=== PATIENT | female | born 1960 | race Hispanic/Latino ===

== ENCOUNTER 2016-06-26 16:07 | Inpatient (IN) | payer MEDICAID ==
[2016-06-26 16:07] VITALS: BMI 32.4
[2016-06-26] MEDS ORDERED: Sodium Chloride 0.9% 1,000 ML IV STA (16:40)
--- NOTE | 2016-06-26 16:44 | ED PDOC ---
HPI: Back Time Seen by Provider: 06/26/16 16:21 Chief Complaint (Nursing): Shortness Of Breath History Per: Patient (states having onset of mid back pain since yesterday that is associated with fever, chills and generalized body aches. She also has noted cloudy urine starting 2 days ago. She has a h/o e. coli in her urine (she is colonized). She denies injuries, cough, chest pain, abdominal pain, diarrhea.) Past Medical History Reviewed: Historical Data, Nursing Documentation, Vital Signs Vital Signs: Last Vital Signs Temp 100.3 F H 06/26/16 16:15 Pulse 101 H 06/26/16 16:15 Resp 22 06/26/16 16:28 BP 128/80 06/26/16 16:15 Pulse Ox 100 06/26/16 16:28 - Medical History PMH: Anxiety, Arthritis, Back Problems, Depression, Fibromyalgia, GERD, HIV ( AIDS), HTN, Hypercholesterolemia, Hypothyroidism, Kidney Stones, Migraine, Chronic Kidney Disease, Rheumatoid Arthritis, Chronic Pain (cervical, lumbar) Denies: Asthma, COPD - Surgical History Surgical History: - Family History Family History: States: Unknown Family Hx, MS (Father had a heart attack >55yo) - Immunization History Hx Tetanus Toxoid Vaccination: Yes (current) Hx Influenza Vaccination: Yes (12/2013) Hx Pneumococcal Vaccination: No - Home Medications Home Medications: Ambulatory Orders Medication Instructions Recorded Allopurinol [Zyloprim] 100 mg PO DAILY 06/26/16 Amitriptyline [Elavil] 50 mg PO DAILY 06/26/16 Efavirenz [Sustiva] 600 mg PO DAILY 06/26/16 Gabapentin [Neurontin] 600 mg PO TID 06/26/16 Lamivudine [Epivir] 150 mg PO DAILY 06/26/16 Levothyroxine [Synthroid] 1 tab PO DAILY 06/26/16 Loratadine [Allergy] 1 tab PO DAILY 06/26/16 Omeprazole [Omeprazole] 1 tab PO DAILY 06/26/16 Raltegravir Potassium [Isentress] 400 mg PO DAILY 06/26/16 Topiramate [Topamax] 25 mg PO DAILY 06/26/16 Venlafaxine [Effexor-XR] 75 mg PO DAILY 06/26/16 - Allergies Allergies/Adverse Reactions: Allergies Allergy/AdvReac Type Severity Reaction Status Date / Time No Known Allergies Allergy Verified 06/26/16 16:14 Review of Systems ROS Statement: Except As Marked, All Systems Reviewed And Found Negative Constitutional: Positive for: Fever, Chills, Malaise Respiratory: Negative for: Cough, SOB with Exertion Gastrointestinal: Negative for: Nausea, Vomiting, Abdominal Pain, Diarrhea Genitourinary Female: Positive for: Dysuria. Negative for: Hematuria Physical Exam - Reviewed Nursing Documentation Reviewed: Yes Vital Signs Reviewed: Yes - Physical Exam Appears: Positive for: Well, Non-toxic, No Acute Distress Head Exam: Positive for: ATRAUMATIC, NORMAL INSPECTION, NORMOCEPHALIC Skin: Positive for: Normal Color, Warm, DRY Eye Exam: Positive for: EOMI, Normal appearance, PERRL ENT: Positive for: Normal ENT Inspection Neck: Positive for: Normal, Painless ROM Cardiovascular/Chest: Positive for: Regular Rate, Rhythm Respiratory: Positive for: CNT, Normal Breath Sounds Gastrointestinal/Abdominal: Positive for: Normal Exam, Bowel Sounds, Soft Back: Positive for: Normal Inspection, L CVA Tenderness, R CVA Tenderness, Vertebral Tenderness Extremity: Positive for: Normal ROM Neurologic/Psych: Positive for: Alert, Oriented - Laboratory Results Result Diagrams: 06/26/16 17:10 06/26/16 17:10 - ECG O2 Sat by Pulse Oximetry: 100 Disposition - Clinical Impression Clinical Impression: UTI (urinary tract infection), Pyelonephritis, acute - Patient ED Disposition Is Patient to be Admitted: Yes Doctor Will See Patient In The: Hospital - Disposition Disposition: Transfer of Care Disposition Time: 20:35 Condition: FAIR - Pt Status Changed To: Hospital Disposition Of: Observation
[2016-06-26] MEDS ORDERED: cefTRIAXone (Rocephin) 1 gm Inj ONE (16:53)
[2016-06-26 17:24] LABS: VENOUS BLOOD GAS BASE EXCESS 7.8 mmol/L (0.0-2.0); VENOUS BLOOD GAS PCO2 37 mmHg (40-60); VENOUS BLOOD PH 7.53 (7.32-7.43)
[2016-06-26 17:50] LABS: BASO # 0.1 K/uL (0.0-0.2); BASO % 0.4 % (0.0-2.0); EOS # 0.1 K/uL (0.0-0.7); EOS % 0.4 % (0.0-4.0); HEMATOCRIT 39.4 % (34.0-47.0); LYMPH # 2.9 K/uL (1.0-4.3); LYMPH % 18.6 % (20.0-40.0); MEAN CELL VOLUME 94.8 fl (81.0-99.0); MEAN CORPUSCULAR HEMOGLOBIN 31.5 pg (27.0-31.0); MEAN CORPUSCULAR HGB CONC 33.2 g/dL (33.0-37.0); MEAN PLATELET VOLUME 8.2 fl (7.2-11.7); MONO # 1.4 K/uL (0.0-0.8); MONO % 8.7 % (0.0-10.0); NEUT # 11.1 K/uL (1.8-7.0); NEUT % 71.9 % (50.0-75.0); RED CELL DISTRIBUTION WIDTH 14.5 % (11.5-14.5); WHITE BLOOD COUNT 15.5 K/uL (4.8-10.8)
[2016-06-26 17:58] LABS: POTASSIUM 2.8 MMOL/L (3.6-5.0)
[2016-06-26 18:00] LABS: BILIRUBIN,TOTAL 0.8 mg/dl (0.2-1.3); TOTAL PROTEIN 9.2 G/DL (6.3-8.2)
[2016-06-26 18:01] LABS: CALCIUM 10.1 mg/dL (8.4-10.2)
--- NOTE | 2016-06-26 18:01 | RAD ---
PROCEDURE: CHEST RADIOGRAPH, 1 VIEW. Technique: Single view portable semi erect @ 17:30 HISTORY: back pain COMPARISON: 05/11/2015. FINDINGS: LUNGS: Clear. PLEURA: No pneumothorax or pleural fluid seen. CARDIOVASCULAR: Normal. OSSEOUS STRUCTURES: No significant abnormalities. VISUALIZED UPPER ABDOMEN: Normal. OTHER FINDINGS: None. IMPRESSION: No active disease. No acute/significant interval changes.
[2016-06-26 18:29] LABS: URINE BILIRUBIN NEGATIVE (NEGATIVE); URINE BLOOD NEGATIVE (NEGATIVE); URINE COLOR YELLOW (YELLOW); URINE GLUCOSE (UA) NEGATIVE (Normal); URINE KETONE NEGATIVE (NEGATIVE); URINE PROTEIN 30 mg/dL (NEGATIVE); URINE UROBILINOGEN 0.2 mg/dL (0.2-1.0)
[2016-06-26 18:30] LABS: RBC URINE 2 /hpf (0-3); URINE BACTERIA RARE (<OCC); URINE LEUKOCYTE ESTERASE MOD Leu/uL (Negative); WBC URINE 24 /hpf (0-5)
--- NOTE | 2016-06-26 21:41 | CP.PCM.HP ---
History of Present Illness - History of Present Illness History of Present Illness: 56 yo F w PMHx of HIV, Nephrolithiasis, CKD, and depression is admitted to hospital for lower back pain, difficulty urinating, and cloudy urine for 2 days. Pt states she has been more easily tired upon regular activities, such as food shopping. However, she does deny fevers/chills, dizziness, dysuria, hematuria, and any recent known stone passage. In addition to kidney stones, pt does have previous episodic history of UTI/Pyelonephritis w MDR E. Coli most recently in September. Otherwise, pt denies n/v/d/c, headaches, cp, sob, dyspnea , cough, abd pain, or other myalgias. 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 Allergies: NKDA Home Meds: Lorazepam, Isentress 400, Epivir 150, Sustiva 600, Amitriptyline 50 HS, Lasix 20, Strovite, Allopurinol, Omeprazole, Urocit-K15, Levoxyl 50, Claritin, Effexor XR 75, Zofran 4 BID PRN FHx: Father at 59yrs of unknown cardiac dz, mother alive w bladder CA SHx: denies etoh, cigarettes, illicit drugs ED Course: -CBC -CMP -D-Dimer -VBG -BCx -UA -UCx -CXR -EKG -Flu A/B -NS 1L Bolus STAT x1 -Famotidine 20mg IVP STAT x1 -Ceftriaxone 1gm IVPB ONCE x1 -Toradol 30mg IV STAT x1 -Zofran 4mg IVP STAT x1 Present on Admission - Present on Admission Any Indicators Present on Admission: No History of DVT/PE: No History of Uncontrolled Diabetes: No Urinary Catheter: No Decubitus Ulcer Present: No Review of Systems - Review of Systems Review of Systems: see HPI Past Patient History - Infectious Disease Hx of Infectious Diseases: None - Past Medical History & Family History Past Medical History?: Yes - Past Social History Smoking Status: Never Smoked - CARDIAC Hx Hypercholesterolemia: Yes Hx Hypertension: Yes - PULMONARY Hx Asthma: No Hx Chronic Obstructive Pulmonary Disease (COPD): No - NEUROLOGICAL Hx Migraine: Yes - HEENT Hx HEENT Problems: Yes Other/Comment: Use eyeglasses - RENAL Hx Chronic Kidney Disease: Yes Hx Kidney Stones: Yes - ENDOCRINE/METABOLIC Hx Hypothyroidism: Yes - HEMATOLOGICAL/ONCOLOGICAL Hx Human Immunodeficiency Virus (HIV): Yes (AIDS) - INTEGUMENTARY Hx Dermatological Problems: No - MUSCULOSKELETAL/RHEUMATOLOGICAL Hx Arthritis: Yes Hx Rheumatoid Arthritis: Yes - GASTROINTESTINAL Hx Gastrointestinal Disorders: Yes Hx Gastroesophageal Reflux: Yes - GENITOURINARY/GYNECOLOGICAL Hx Genitourinary Disorders: Yes Hx Hematuria: Yes Hx Urinary Tract Infection: Yes Other/Comment: STONES - PSYCHIATRIC Hx Anxiety: Yes Hx Depression: Yes - SURGICAL HISTORY Hx Surgeries: Yes Hx Section: Yes (x2) Hx Musculoskeletal Surgery: Yes (left foot, hump to back of neck removed x2) Hx Tubal Ligation: Yes Other/Comment: SURGICAL REMOVAL FOR KIDNEY STONE, LYMPH NODE SURGERY, , TUBAL LIGATION. - ANESTHESIA Hx Anesthesia: Yes Hx Anesthesia Reactions: No Hx Malignant Hyperthermia: No Meds Allergies/Adverse Reactions: Allergies Allergy/AdvReac Type Severity Reaction Status Date / Time No Known Allergies Allergy Verified 06/26/16 16:14 Physical Exam - Constitutional Appears: Non-toxic, No Acute Distress - Head Exam Head Exam: ATRAUMATIC, NORMAL INSPECTION - Eye Exam Eye Exam: EOMI Pupil Exam: PERRL - ENT Exam ENT Exam: Mucous Membranes Dry - Neck Exam Neck exam: Positive for: Full Rom. Negative for: Tenderness - Respiratory Exam Respiratory Exam: Clear to Auscultation Bilateral, NORMAL BREATHING PATTERN - Cardiovascular Exam Cardiovascular Exam: REGULAR RHYTHM - GI/Abdominal Exam GI & Abdominal Exam: Soft. absent: Tenderness - Extremities Exam Extremities exam: Negative for: calf tenderness - Back Exam Back exam: CVA tenderness (L) (mild), CVA tenderness (R) (very tender) - Neurological Exam Neurological exam: Alert, Oriented x3 - Skin Skin Exam: Dry, Normal Color, Warm Results - Vital Signs Recent Vital Signs: Last Vital Signs Temp 99.2 F 06/26/16 21:32 Pulse 76 06/26/16 21:32 Resp 18 06/26/16 21:32 BP 105/60 06/26/16 21:32 Pulse Ox 99 06/26/16 21:32 - Labs Result Diagrams: 06/26/16 17:10 06/26/16 17:10 Assessment & Plan - Assessment and Plan (Free Text) Plan: 56 yo F w PMHx of HIV, Nephrolithiasis, CKD, and depression is admitted to hospital for lower back pain, difficulty urinating, and cloudy urine for 2 days 1) Pyelonephritis VS UTI in setting of CKD -CKD currently stage 3; h/o HIV, frequent kidney stones, and yearly episodes of UTIs/Pyelo w h/o MRD e coli -Nephro Consulted and Onboard, Spoken with Fri evening -Infectious Consulted and Onboard, Spoken with Fri evening -Creatinine Clearance ~63.50 ---CT A/P w/o contrast (September): Calcifications consistent w medullary nephrocalcinosis. Nonobstructing bilateral renal calculi. No hydronephrosis. ---Previous UCx (September): MDR e coli -NS 1L Bolus -NS 1L @ 84mL/hr -Ceftriaxone 1gm IVPB x1, awaiting input from ID -Tylenol 650mg PO Q6H PRN Fever, w orders to instruct MD when given -Zofran 4mg IVP PRN Nausea -Morphine 2mg IVP Q6H PRN Pain -f/u BCx -f/u UCx ---spoke w [facility] to ensure Sensitivity is performed, they stated it is automatic w colony count >50,000 and would need to be requested if count is < 50,000. Phone # is [phone] 2) CKD Stage 3 w Hypokalemia -GFR: 51 -BUN/Cr: 28/1.3 -K 2.8 -Lasix 20mg PO Daily; will confirm w Nephro regarding Lasix VS HCTZ bc GFR > 30 -Allopurinol 100mg PO Daily -KCl 10mEq x4 -f/u BMP in AM 3) HIV, not AIDS -VL (06/07): undetectable -CD4 (06/07): 774 -Isentress 400 -Epivir 150 -Sustiva 600 4) Hypothyroidism -TSH (08/06): 0.96 -Levoxyl 50mcg PO Daily -f/u TSH, FT3, FT4 5) Neuropathy -Gabapentin 600mg PO TID 6) h/o Depression -Venlafaxine 75mg PO Daily 7) h/o HTN -Presently Controlled 8) DVT Prophylaxis -SCDs, ambulates well -Will consider further anticoagulation
[2016-06-26] MEDS: Sodium Chloride 0.9% 1,000 ML IV SCH (22:07)
[2016-06-27] MEDS: Potassium CL 10 MEQ/50 ML 50 ML IVPB SCH ×4 (00:46→06:27)
[2016-06-27] MEDS: Levothyroxine 50 MCG TAB PO SCH (07:29)
[2016-06-27 07:41] LABS: MEAN CELL VOLUME 93.8 fl (81.0-99.0); MEAN CORPUSCULAR HEMOGLOBIN 31.9 pg (27.0-31.0); MEAN CORPUSCULAR HGB CONC 34.1 g/dL (33.0-37.0); WHITE BLOOD COUNT 9.8 K/uL (4.8-10.8)
[2016-06-27 07:51] LABS: CALCIUM 9.3 mg/dL (8.4-10.2); POTASSIUM 3.2 MMOL/L (3.6-5.0)
[2016-06-27 08:21] LABS: THYROID STIMULATING HORMONE 0.69 mIU/ML (0.46-4.68)
[2016-06-27] MEDS ORDERED: OMEPRAZOLE PO SCH (09:00)
[2016-06-27] MEDS: Pantoprazole 40 mg EC Tab PO SCH (09:10)
[2016-06-27] MEDS: Venlafaxine 75 mg ER Cap PO SCH (09:11)
--- NOTE | 2016-06-27 10:27 | CP.PCM.CON ---
History of Present Illness - History of Present Illness History of Present Illness: This patient who is 56 years old. I was asked to see her for renal consultation because of abnormal kidney function. Patient was admitted was urine complaining dysuria and difficulty in urination low grade fever with sign urine tract infection. She has long history of recurrent urinary tract infection and recurrent kidney stone. Patient had the previously more than once nephrolithiasis and also stone laser Treatment PMHx: HIV (May VL: undetectable, CD4: 774), Migraine, Nephrolithiasis, CKD , Pyelo w MRD e coli (September), R lung nodule, Diverticulosis, Fatty Liver change, Hypothyroidism PSHx: C/S x2, R kidney stent 2014, L heel spur 2013, neck lipoma 2009 Review of Systems - Constitutional Constitutional: As Per HPI - EENT Eyes: As Per HPI Nose/Mouth/Throat: As Per HPI - Cardiovascular Cardiovascular: absent: Chest Pain, Dyspnea, Leg Edema - Respiratory Respiratory: absent: Cough, Hemoptysis - Gastrointestinal Gastrointestinal: As Per HPI. absent: Abdominal Pain - Genitourinary Genitourinary: As Per HPI, Dysuria, Freq UTI, Hx Renal/Bladder Calculi - Neurological Neurological: As Per HPI Past Patient History - Infectious Disease Hx of Infectious Diseases: None - Past Medical History & Family History Past Medical History?: Yes - Past Social History Smoking Status: Never Smoked - CARDIAC Hx Hypercholesterolemia: Yes Hx Hypertension: Yes - PULMONARY Hx Asthma: No Hx Chronic Obstructive Pulmonary Disease (COPD): No - NEUROLOGICAL Hx Migraine: Yes - HEENT Hx HEENT Problems: Yes Other/Comment: Use eyeglasses - RENAL Hx Chronic Kidney Disease: Yes Hx Kidney Stones: Yes - ENDOCRINE/METABOLIC Hx Hypothyroidism: Yes - HEMATOLOGICAL/ONCOLOGICAL Hx Human Immunodeficiency Virus (HIV): Yes (AIDS) - INTEGUMENTARY Hx Dermatological Problems: No - MUSCULOSKELETAL/RHEUMATOLOGICAL Hx Arthritis: Yes Hx Rheumatoid Arthritis: Yes - GASTROINTESTINAL Hx Gastrointestinal Disorders: Yes Hx Gastroesophageal Reflux: Yes - GENITOURINARY/GYNECOLOGICAL Hx Genitourinary Disorders: Yes Hx Hematuria: Yes Hx Urinary Tract Infection: Yes Other/Comment: STONES - PSYCHIATRIC Hx Anxiety: Yes Hx Depression: Yes - SURGICAL HISTORY Hx Surgeries: Yes Hx Section: Yes (x2) Hx Musculoskeletal Surgery: Yes (left foot, hump to back of neck removed x2) Hx Tubal Ligation: Yes Other/Comment: SURGICAL REMOVAL FOR KIDNEY STONE, LYMPH NODE SURGERY, , TUBAL LIGATION. - ANESTHESIA Hx Anesthesia: Yes Hx Anesthesia Reactions: No Hx Malignant Hyperthermia: No Meds Allergies/Adverse Reactions: Allergies Allergy/AdvReac Type Severity Reaction Status Date / Time No Known Allergies Allergy Verified 06/26/16 16:14 - Medications Medications: Current Medications Acetaminophen (Tylenol 325mg Tab) 650 mg PO Q6 PRN PRN Reason: Fever >100.4 F Last Admin: 06/27/16 09:09 Dose: 650 mg Allopurinol (Zyloprim) 100 mg PO DAILY [facility] Last Admin: 06/27/16 09:10 Dose: 100 mg Amitriptyline HCl (Elavil) 50 mg PO DAILY [facility] Last Admin: 06/27/16 09:10 Dose: 50 mg Efavirenz (Sustiva) 600 mg PO DAILY [facility] Last Admin: 06/27/16 09:10 Dose: 600 mg Furosemide (Lasix) 20 mg PO DAILY [facility] Last Admin: 06/27/16 09:17 Dose: Not Given Gabapentin (Neurontin) 600 mg PO TID [facility] Last Admin: 06/27/16 09:10 Dose: 600 mg Sodium Chloride (Sodium Chloride 0.9%) 1,000 mls @ 84 mls/hr IV .[id number] [facility] Last Admin: 06/26/16 22:07 Dose: 84 mls/hr Lamivudine (Epivir) 150 mg PO DAILY [facility] Last Admin: 06/27/16 09:10 Dose: 150 mg Levothyroxine Sodium (Synthroid) 50 mcg PO DAILY@0630 [facility] Last Admin: 06/27/16 07:29 Dose: 50 mcg Loratadine (Claritin) 10 mg PO DAILY [facility] Last Admin: 06/27/16 09:10 Dose: 10 mg Morphine Sulfate (Morphine) 2 mg IVP Q6 PRN PRN Reason: Pain, Mild (1-3) Ondansetron HCl (Zofran Inj) 4 mg IVP Q6 PRN PRN Reason: Nausea/Vomiting Pantoprazole Sodium (Protonix Ec Tab) 40 mg PO DAILY [facility] Last Admin: 06/27/16 09:10 Dose: 40 mg Raltegravir (Isentress) 400 mg PO DAILY [facility] Last Admin: 06/27/16 09:10 Dose: 400 mg Venlafaxine HCl (Effexor Xr) 75 mg PO DAILY [facility] Last Admin: 06/27/16 09:11 Dose: 75 mg Physical Exam - Constitutional Appears: Non-toxic, No Acute Distress - ENT Exam ENT Exam: Mucous Membranes Moist - Respiratory Exam Respiratory Exam: absent: Chest Wall Tenderness - Cardiovascular Exam Cardiovascular Exam: REGULAR RHYTHM. absent: JVD, Rubs - GI/Abdominal Exam GI & Abdominal Exam: Normal Bowel Sounds, Soft - Extremities Exam Extremities exam: Negative for: calf tenderness - Back Exam Back exam: absent: CVA tenderness (L), CVA tenderness (R) - Neurological Exam Neurological exam: Alert Results - Vital Signs Recent Vital Signs: Last Vital Signs Temp 98.4 F 06/27/16 08:03 Pulse 81 06/27/16 08:03 Resp 20 06/27/16 08:03 BP 126/79 06/27/16 08:03 Pulse Ox 99 06/27/16 08:03 - Labs Result Diagrams: 06/27/16 05:55 06/27/16 05:55 Labs: Laboratory Results - last 24 hr 06/27/16 05:55 WBC 9.8 RBC 3.52 L Hgb 11.3 L Hct 33.0 L MCV 93.8 MCH 31.9 H MCHC 34.1 RDW 14.0 Plt Count 228 Sodium 142 Potassium 3.2 L Chloride 101 Carbon Dioxide 27 Anion Gap 17 BUN 28 H Creatinine 1.5 H Est GFR ( Amer) 43 Est GFR (Non-Af Amer) 36 Random Glucose 116 H Calcium 9.3 Free T4 1.04 TSH 3rd Generation 0.69 Assessment & Plan (1) Pyelonephritis, acute Status: Acute (2) UTI (urinary tract infection) Assessment and Plan: Patient admitted with symptom of follow-up appeared to be pyelonephritis/ urinary tract infection. Patient has history of CK D stage III with appeared to be has been stable most likely whether to do anything with the HIV I'm not sure? Patient just went for CT scan of the abdomen this morning the report is still pending Patient has history of multiple nephrolithiasis Patient need follow-up to do a metabolic workup for the kidney stone when she is over from the urine tract infection. Possible acute kidney injury superimposed on CK D stage III. Status: Acute
[2016-06-27] MEDS: Sodium Chloride 0.9% 1,000 ML IV SCH ×2 (10:42→21:20)
--- NOTE | 2016-06-27 10:51 | CT ---
PROCEDURE: CT Abdomen and Pelvis without intravenous contrast HISTORY: CVA tenderness, r/o obstruction VS stones COMPARISON: None. TECHNIQUE: Without contrast.. Contrast Dose: 0 Radiation dose: Total exam DLP = 1028.21 mGy-cm. This CT exam was performed using one or more of the following dose reduction techniques: Automated exposure control, adjustment of the mA and/or kV according to patient size, and/or use of iterative reconstruction technique. FINDINGS: LOWER THORAX: Small nodules in both lower lobes and right middle lobe. Largest 4 mm. No change compared to examinations dating back to 11/06/2013. . No consolidation/pleural effusion. LIVER: Normal size and contour. Mildly diminished attenuation, diffusely, consistent with fatty infiltration. No mass. No biliary dilatation. Smooth contour. GALLBLADDER AND BILE DUCTS: Unremarkable. PANCREAS: Extensive fatty atrophy. No mass. No pancreatic ductal dilatation appreciated SPLEEN: Unremarkable. ADRENALS: Unremarkable. No mass. KIDNEYS AND URETERS: Bilateral medullary calcifications consistent with medullary nephrocalcinosis. No definite calculi within collecting system. No hydronephrosis. No renal mass. VASCULATURE: Unremarkable. No aortic aneurysm. BOWEL: Diverticulosis of transverse colon. Scattered diverticulae elsewhere throughout colon. No evidence of diverticulitis. No bowel obstruction. No other abnormal bowel loops. APPENDIX: Not identified. No secondary findings to suggest appendicitis. PERITONEUM: Unremarkable. No free fluid. No free air. LYMPH NODES: No retroperitoneal or pelvic lymphadenopathy. BLADDER: Decompressed. REPRODUCTIVE: Anteverted postmenopausal uterus. BONES: No acute fracture. OTHER FINDINGS: None. IMPRESSION: Bilateral medullary nephrocalcinosis. No definite calculi within the urinary collecting system. No evidence of urinary tract obstruction. No ureteral calculus. Multiple small stable nodules at the lung bases. Diverticulosis of the transverse colon. No evidence of diverticulitis. Otherwise unremarkable.
[2016-06-27] MEDS ORDERED: Potassium Chloride 20 mEq ER Tab PO ONE (11:00)
[2016-06-27] MEDS ORDERED: Potassium Chloride 20 mEq ER Tab PO SCH (11:00)
--- NOTE | 2016-06-27 11:42 | CP.PCM.PN ---
Subjective - Date & Time of Evaluation Date of Evaluation: 06/27/16 Time of Evaluation: 11:10 - Subjective Subjective: The patient is a 56 y/o woman w/ PMHx of HIV, Nephrolithiasis, CKD, and depression is admitted to hospital for lower back pain, difficulty urinating, and cloudy urine for 2 days prior to admission. The patient was seen this morning. There are no acute events overnight. The patient is not in acute distress. The patient complains of some burning with the IV potassium. Patient is ambulatory and currently denies back pain or CVA tenderness. The patient has no other complaints, denies headaches, dizziness, chest pain, dyspnea, abdominal pain, nausea, vomiting, and fevers. Objective - Vital Signs/Intake and Output Vital Signs (last 24 hours): Temp Pulse Resp BP Pulse Ox 98.4 F 81 20 126/79 99 06/27/16 08:03 06/27/16 08:03 06/27/16 08:03 06/27/16 08:03 06/27/16 08:03 - Medications Medications: Current Medications Acetaminophen (Tylenol 325mg Tab) 650 mg PO Q6 PRN PRN Reason: Fever >100.4 F Last Admin: 06/27/16 09:09 Dose: 650 mg Allopurinol (Zyloprim) 100 mg PO DAILY [facility] Last Admin: 06/27/16 09:10 Dose: 100 mg Amitriptyline HCl (Elavil) 50 mg PO DAILY [facility] Last Admin: 06/27/16 09:10 Dose: 50 mg Efavirenz (Sustiva) 600 mg PO DAILY [facility] Last Admin: 06/27/16 09:10 Dose: 600 mg Furosemide (Lasix) 20 mg PO DAILY [facility] Last Admin: 06/27/16 09:17 Dose: Not Given Gabapentin (Neurontin) 600 mg PO TID [facility] Last Admin: 06/27/16 09:10 Dose: 600 mg Sodium Chloride (Sodium Chloride 0.9%) 1,000 mls @ 84 mls/hr IV .[id number] [facility] Last Admin: 06/27/16 10:42 Dose: Not Given Lamivudine (Epivir) 150 mg PO DAILY [facility] Last Admin: 06/27/16 09:10 Dose: 150 mg Levothyroxine Sodium (Synthroid) 50 mcg PO DAILY@0630 [facility] Last Admin: 06/27/16 07:29 Dose: 50 mcg Loratadine (Claritin) 10 mg PO DAILY [facility] Last Admin: 06/27/16 09:10 Dose: 10 mg Morphine Sulfate (Morphine) 2 mg IVP Q6 PRN PRN Reason: Pain, Mild (1-3) Ondansetron HCl (Zofran Inj) 4 mg IVP Q6 PRN PRN Reason: Nausea/Vomiting Pantoprazole Sodium (Protonix Ec Tab) 40 mg PO DAILY [facility] Last Admin: 06/27/16 09:10 Dose: 40 mg Raltegravir (Isentress) 400 mg PO DAILY [facility] Last Admin: 06/27/16 09:10 Dose: 400 mg Venlafaxine HCl (Effexor Xr) 75 mg PO DAILY [facility] Last Admin: 06/27/16 09:11 Dose: 75 mg - Labs Labs: 06/27/16 05:55 06/27/16 05:55 - Constitutional Appears: No Acute Distress - Head Exam Head Exam: ATRAUMATIC, NORMOCEPHALIC - Neck Exam Neck Exam: Full ROM - Respiratory Exam Respiratory Exam: Clear to Ausculation Bilateral, NORMAL BREATHING PATTERN. absent: Accessory Muscle Use, Chest Wall Tenderness, Decreased Breath Sounds, Prolonged Expiratory Phase, Rales, Rhonchi, Wheezes, Respiratory Distress, Stridor - Cardiovascular Exam Cardiovascular Exam: REGULAR RHYTHM, RRR. absent: Tachycardia - GI/Abdominal Exam GI & Abdominal Exam: Soft, Normal Bowel Sounds. absent: Distended, Tenderness - Extremities Exam Extremities Exam: Full ROM, Normal Inspection. absent: Calf Tenderness, Tenderness - Back Exam Back Exam: Full ROM, NORMAL INSPECTION. absent: CVA tenderness (L), CVA tenderness (R), tenderness - Neurological Exam Neurological Exam: Alert, Awake, Normal Gait, Oriented x3 - Skin Skin Exam: Dry, Intact, Normal Color, Warm Assessment and Plan - Assessment and Plan (Free Text) Assessment: The patient is a 56 y/o woman w/ PMHx of HIV, Nephrolithiasis, CKD, and depression is admitted to hospital for lower back pain, difficulty urinating, and cloudy urine for 2 days prior to admission Plan: 1) Pyelonephritis VS UTI in setting of CKD -CKD currently stage 3; h/o HIV, frequent kidney stones, and yearly episodes of UTIs/Pyelo w h/o MRD e coli -Nephro Consulted, Dr. Watters, recommendations appreciated -Infectious Consulted, Dr. Molina; recommendations appreciated -Urology Consulted, Dr. Wick -Creatinine Clearance ~63.50 ---CT A/P w/o contrast (September): Calcifications consistent w medullary nephrocalcinosis. Nonobstructing bilateral renal calculi. No hydronephrosis. ---Previous UCx (September): MDR e coli -NS 1L Bolus -NS 1L @ 84mL/hr -Ceftriaxone 1gm IVPB x2 -Tylenol 650mg PO Q6H PRN Fever, w orders to instruct MD when given -Zofran 4mg IVP PRN Nausea -Morphine 2mg IVP Q6H PRN Pain -f/u BCx x2 -f/u UCx ---reachd out to [facility] to ensure Sensitivity is performed, they stated it is automatic w colony count >50,000 and would need to be requested if count is <50,000. Phone # is [phone] -Meropenem 500 mg IV Q8h -possible PICC line, pending culture and sensitivity 2) CKD Stage 3 w Hypokalemia -repeat GFR: 36 -repeat BUN/Cr: 28/1.5 -repeat K 3.2 -Lasix 20mg PO Daily; will confirm w Nephro regarding Lasix VS HCTZ bc GFR > 30 -Allopurinol 100mg PO Daily -s/p KCl 10mEq x4 -given Po potassium chloride 40 mg once -follow up BMP in PM 3) HIV, not AIDS -VL (06/07): undetectable -CD4 (06/07): 774 -Isentress 400 -Epivir 150 -Sustiva 600 4) Hypothyroidism -TSH (08/06): 0.96 -Levoxyl 50mcg PO Daily -TSH 0.69, FT4 1.04 5) Neuropathy -Gabapentin 600mg PO TID 6) h/o Depression -Venlafaxine 75mg PO Daily 7) h/o HTN -Presently Controlled 8) DVT Prophylaxis -SCDs, ambulates well -Will consider further anticoagulation
--- NOTE | 2016-06-27 13:00 | CP.PCM.CON ---
History of Present Illness - History of Present Illness History of Present Illness: Infectious Disease Consultation Note- asked to see this patient at the request of family practice team. HPI- Pt. is a 56 year old female with pmh of HIV ( well controlled on HAART), nephrolithiasis, and previous ESBL UTIS, CKD, who was admitted last night with c /o left flank pain and cloudy malodorous urine. Pt. states she has h/o uric acid nephrolithiasis and has had lithotropsy in past but she keeps getting them at least twice a year and each time it comes along with UTI as well and always E.COli. Pt. states she does not get fever or chills or any dysurea but does get the lower back pain and cloudy urine. She states last time she was here she got picc line and was d/c home on IV abx. She also mentions she has MAcrobid at home and usually when she feels the symptoms starting she takes it and that helps her. She also mentions she f/u with and HAs a supercalender operator helper as outpatient as well. Pt. denies any n/v, denies any abd. pain. 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 pain, denies any dysurea, does c/o left lower back pain, + cloudy malodorous urine as per pt., denies any diarrhea Past Patient History - Infectious Disease Hx of Infectious Diseases: None - Past Medical History & Family History Past Medical History?: Yes - Past Social History Smoking Status: Never Smoked Alcohol: None Drugs: Denies Home Situation {Lives}: With Family - CARDIAC Hx Hypercholesterolemia: Yes Hx Hypertension: Yes - PULMONARY Hx Asthma: No Hx Chronic Obstructive Pulmonary Disease (COPD): No - NEUROLOGICAL Hx Migraine: Yes - HEENT Hx HEENT Problems: Yes Other/Comment: Use eyeglasses - RENAL Hx Kidney Stones: Yes - ENDOCRINE/METABOLIC Hx Hypothyroidism: Yes - HEMATOLOGICAL/ONCOLOGICAL Hx Human Immunodeficiency Virus (HIV): Yes - INTEGUMENTARY Hx Dermatological Problems: No - MUSCULOSKELETAL/RHEUMATOLOGICAL Hx Arthritis: Yes Hx Rheumatoid Arthritis: Yes - GASTROINTESTINAL Hx Gastrointestinal Disorders: Yes Hx Gastroesophageal Reflux: Yes - GENITOURINARY/GYNECOLOGICAL Hx Genitourinary Disorders: Yes Hx Hematuria: Yes Hx Urinary Tract Infection: Yes Other/Comment: STONES - PSYCHIATRIC Hx Anxiety: Yes Hx Depression: Yes - SURGICAL HISTORY Hx Surgeries: Yes Hx Section: Yes (x2) Hx Musculoskeletal Surgery: Yes (left foot, hump to back of neck removed x2) Hx Tubal Ligation: Yes Other/Comment: SURGICAL REMOVAL FOR KIDNEY STONE, LYMPH NODE SURGERY, , TUBAL LIGATION. - ANESTHESIA Hx Anesthesia: Yes Hx Anesthesia Reactions: No Hx Malignant Hyperthermia: No Meds Allergies/Adverse Reactions: Allergies Allergy/AdvReac Type Severity Reaction Status Date / Time No Known Allergies Allergy Verified 06/26/16 16:14 - Medications Medications: Current Medications Acetaminophen (Tylenol 325mg Tab) 650 mg PO Q6 PRN PRN Reason: Fever >100.4 F Last Admin: 06/27/16 09:09 Dose: 650 mg Allopurinol (Zyloprim) 100 mg PO DAILY [facility] Last Admin: 06/27/16 09:10 Dose: 100 mg Amitriptyline HCl (Elavil) 50 mg PO DAILY [facility] Last Admin: 06/27/16 09:10 Dose: 50 mg Efavirenz (Sustiva) 600 mg PO DAILY [facility] Last Admin: 06/27/16 09:10 Dose: 600 mg Furosemide (Lasix) 20 mg PO DAILY [facility] Last Admin: 06/27/16 09:17 Dose: Not Given Gabapentin (Neurontin) 600 mg PO TID [facility] Last Admin: 06/27/16 09:10 Dose: 600 mg Sodium Chloride (Sodium Chloride 0.9%) 1,000 mls @ 84 mls/hr IV .[id number] [facility] Last Admin: 06/27/16 10:42 Dose: Not Given Lamivudine (Epivir) 150 mg PO DAILY [facility] Last Admin: 06/27/16 09:10 Dose: 150 mg Levothyroxine Sodium (Synthroid) 50 mcg PO DAILY@0630 [facility] Last Admin: 06/27/16 07:29 Dose: 50 mcg Loratadine (Claritin) 10 mg PO DAILY [facility] Last Admin: 06/27/16 09:10 Dose: 10 mg Morphine Sulfate (Morphine) 2 mg IVP Q6 PRN PRN Reason: Pain, Mild (1-3) Ondansetron HCl (Zofran Inj) 4 mg IVP Q6 PRN PRN Reason: Nausea/Vomiting Pantoprazole Sodium (Protonix Ec Tab) 40 mg PO DAILY [facility] Last Admin: 06/27/16 09:10 Dose: 40 mg Raltegravir (Isentress) 400 mg PO DAILY [facility] Last Admin: 06/27/16 09:10 Dose: 400 mg Venlafaxine HCl (Effexor Xr) 75 mg PO DAILY [facility] Last Admin: 06/27/16 09:11 Dose: 75 mg Physical Exam - Constitutional Appears: Non-toxic, No Acute Distress - Head Exam Head Exam: ATRAUMATIC - Eye Exam Eye Exam: EOMI, PERRL - ENT Exam ENT Exam: Normal Oropharynx - Neck Exam Neck exam: Positive for: Full Rom - Respiratory Exam Respiratory Exam: Clear to Auscultation Bilateral, NORMAL BREATHING PATTERN - Cardiovascular Exam Cardiovascular Exam: RRR, +S1, +S2 - GI/Abdominal Exam GI & Abdominal Exam: Normal Bowel Sounds, Soft Additional comments: NT, ND Left CVA tenderness present - Extremities Exam Extremities exam: Positive for: normal inspection Results - Vital Signs Recent Vital Signs: Last Vital Signs Temp 98.4 F 06/27/16 08:03 Pulse 81 06/27/16 08:03 Resp 20 06/27/16 08:03 BP 126/79 06/27/16 08:03 Pulse Ox 99 06/27/16 08:03 - Labs Result Diagrams: 06/27/16 05:55 06/27/16 05:55 Labs: Laboratory Results - last 24 hr 06/27/16 05:55 WBC 9.8 RBC 3.52 L Hgb 11.3 L Hct 33.0 L MCV 93.8 MCH 31.9 H MCHC 34.1 RDW 14.0 Plt Count 228 Sodium 142 Potassium 3.2 L Chloride 101 Carbon Dioxide 27 Anion Gap 17 BUN 28 H Creatinine 1.5 H Est GFR ( Amer) 43 Est GFR (Non-Af Amer) 36 Random Glucose 116 H Calcium 9.3 Free T4 1.04 TSH 3rd Generation 0.69 Laboratory Results - last 72 hr 06/26/16 06/26/16 06/27/16 17:10 17:20 05:55 WBC 15.5 H D 9.8 RBC 4.16 3.52 L Hgb 13.1 11.3 L Hct 39.4 33.0 L MCV 94.8 93.8 MCH 31.5 H 31.9 H MCHC 33.2 34.1 RDW 14.5 14.0 Plt Count 288 228 MPV 8.2 Neut % (Auto) 71.9 Lymph % (Auto) 18.6 L [place] % (Auto) 8.7 Eos % (Auto) 0.4 Baso % (Auto) 0.4 Neut # 11.1 H Lymph # 2.9 [place] # 1.4 H Eos # 0.1 Baso # 0.1 D-Dimer, Quantitative 0.34 pO2 18 L VBG pH 7.53 H VBG pCO2 37 L VBG HCO3 29.3 VBG Total CO2 32.0 H VBG O2 Sat (Calc) 37.8 L VBG Base Excess 7.8 H VBG Potassium 2.8 L Glucose 97 Lactate 1.6 FiO2 21.0 Sodium 137 134.0 142 Potassium 2.8 L 3.2 L Chloride 93 L 97.0 L 101 Carbon Dioxide 28 27 Anion Gap 19 17 BUN 28 H 28 H Creatinine 1.3 H 1.5 H Est GFR ( Amer) 51 43 Est GFR (Non-Af Amer) 42 36 Random Glucose 96 116 H Calcium 10.1 9.3 Total Bilirubin 0.8 AST 37 H ALT 28 Alkaline Phosphatase 127 H Total Protein 9.2 H Albumin 4.6 Globulin 4.6 H Albumin/Globulin Ratio 1.0 Free T4 1.04 TSH 3rd Generation 0.69 Venous Blood Potassium 2.8 L Urine Color Yellow Urine Clarity Slight-cloudy Urine pH 7.0 Ur Specific Hooper 1.015 Urine Protein 30 Urine Glucose (UA) Negative Urine Ketones Negative Urine Blood Negative Urine Nitrate Negative Urine Bilirubin Negative Urine Urobilinogen 0.2 Ur Leukocyte Esterase Mod Urine RBC (Auto) 2 Urine Microscopic WBC 24 H Ur Squamous Epith Cells 4 Amorphous Sediment Few H Urine Bacteria Rare Influenza Typ A,B (EIA) Negative for flu a/b Microbiology 06/26/16 17:10 Urine Urine Culture - Preliminary Gram Negative Mark Microbiology 10/28/15 09:28 Urine,Clean Catch Urine Culture - Final Gram Negative Mark 10/19/15 16:30 Urine,Clean Catch Urine Culture - Final Gram Negative Mark 10/03/15 14:27 Blood Blood Culture - Final 10/03/15 14:27 Blood Gram Stain - Final NO GROWTH AFTER 5 DAYS TEST NOT PERFORMED 10/03/15 14:27 Blood Blood Culture - Final 10/03/15 14:27 Blood Gram Stain - Final NO GROWTH AFTER 5 DAYS TEST NOT PERFORMED 10/03/15 14:01 Urine,Clean Catch Urine Culture - Final Escherichia Coli Accession No. : [id number] Patient Name / ID : CHAYA REYNOLDS [id number] Exam Date : 06/27/2016 08:21:22 ( Approved ) Study Comment : Sex / Age : F / 56Y Creator : Jake Pardo MD Dictator : Jake Pardo MD Soil Conservationist : Produce Inspector : Jake Pardo MD Approver2 : Report Date : 06/27/2016 10:45:24 My Comment : PROCEDURE: CT Abdomen and Pelvis without intravenous contrast HISTORY: CVA tenderness, r/o obstruction VS stones COMPARISON: None. TECHNIQUE: Without contrast.. Contrast Dose: 0 Radiation dose: Total exam DLP = 1028.21 mGy-cm. This CT exam was performed using one or more of the following dose reduction techniques: Automated exposure control, adjustment of the mA and/or kV according to patient size, and/or use of iterative reconstruction technique. FINDINGS: LOWER THORAX: Small nodules in both lower lobes and right middle lobe. Largest 4 mm. No change compared to examinations dating back to 11/06/2013. . No consolidation/ pleural effusion. LIVER: Normal size and contour. Mildly diminished attenuation, diffusely, consistent with fatty infiltration. No mass. No biliary dilatation. Smooth contour. GALLBLADDER AND BILE DUCTS: Unremarkable. PANCREAS: Extensive fatty atrophy. No mass. No pancreatic ductal dilatation appreciated SPLEEN: Unremarkable. ADRENALS: Unremarkable. No mass. KIDNEYS AND URETERS: Bilateral medullary calcifications consistent with medullary nephrocalcinosis. No definite calculi within collecting system. No hydronephrosis. No renal mass. VASCULATURE: Unremarkable. No aortic aneurysm. BOWEL: Diverticulosis of transverse colon. Scattered diverticulae elsewhere throughout colon. No evidence of diverticulitis. No bowel obstruction. No other abnormal bowel loops. APPENDIX: Not identified. No secondary findings to suggest appendicitis. PERITONEUM: Unremarkable. No free fluid. No free air. LYMPH NODES: No retroperitoneal or pelvic lymphadenopathy. BLADDER: Decompressed. REPRODUCTIVE: Anteverted postmenopausal uterus. BONES: No acute fracture. OTHER FINDINGS: None. IMPRESSION: Bilateral medullary nephrocalcinosis. No definite calculi within the urinary collecting system. No evidence of urinary tract obstruction. No ureteral calculus. Multiple small stable nodules at the lung bases. Diverticulosis of the transverse colon. No evidence of diverticulitis. Otherwise unremarkable. Assessment & Plan - Assessment and Plan (Free Text) Assessment: A/P- 56 y/o female with HIV on HAART, CKD, Nephrolithiasis with frequent E.Coli UTIs presented with left flank pain. not septic. afebrile Leukocytosis has improved since admission on abx. prelim urien cx- GNR abd/pelvic ct report noted as per report no urinary system obstruction. plan- await ID and sensitivity of the GNR in urine cx. check 2 blood cx. based on previous ESBL UTI's advise to start pt. on meropenem pending ID and sensitivity oft he current urine cx. keep well hydrated. continue current HAART meds as per her PMD. pt. also advised f/u with supercalender operator helper input and to speak with pipe fitter supervisor maintenance to help avoid foods that are high in purine . Thank you for allowing met o take part in the care of this patient. all above d/w patient and the FP team at length.
[2016-06-27] MEDS: Meropenem 500 MG in Sodium Chloride 0.9% 100 ML IVPB SCH (16:24)
[2016-06-27 17:20] LABS: CALCIUM 9.2 mg/dL (8.4-10.2); POTASSIUM 3.8 MMOL/L (3.6-5.0)
--- NOTE | 2016-06-27 19:12 | CARD ---
APPROVED REPORT EKG Measurement Heart [id number] [place] [id number] <Conclusion> Normal sinus rhythm Prolonged QT Abnormal ECG
[2016-06-27 21:43] LABS: FT3 6.92 pg/mL (2.77-5.27)
[2016-06-28] MEDS: Meropenem 500 MG in Sodium Chloride 0.9% 100 ML IVPB SCH ×3 (01:23→17:24)
[2016-06-28] MEDS: Levothyroxine 50 MCG TAB PO SCH (06:22)
[2016-06-28 07:43] LABS: HEMATOCRIT 33.6 % (34.0-47.0); MEAN CELL VOLUME 95.4 fl (81.0-99.0); MEAN CORPUSCULAR HEMOGLOBIN 32.1 pg (27.0-31.0); MEAN CORPUSCULAR HGB CONC 33.7 g/dL (33.0-37.0); RED CELL DISTRIBUTION WIDTH 14.4 % (11.5-14.5); WHITE BLOOD COUNT 7.6 K/uL (4.8-10.8)
[2016-06-28 08:08] LABS: CALCIUM 9.4 mg/dL (8.4-10.2); POTASSIUM 4.6 MMOL/L (3.6-5.0)
--- NOTE | 2016-06-28 09:16 | CP.PCM.PN ---
Subjective - Date & Time of Evaluation Date of Evaluation: 06/28/16 Time of Evaluation: 20:00 - Subjective Subjective: The patient is a 56 y/o woman w/ PMHx of HIV, Nephrolithiasis, CKD, and depression is admitted to hospital for lower back pain, difficulty urinating, and cloudy urine for 2 days prior to admission. The patient was seen this morning. There are no acute events overnight. The patient is not in acute distress. The patient is laying comfortably in bed. The patient had peripheral IV on right hand removed because it was bothering her. Patient is ambulatory and currently denies back pain or CVA tenderness. The patient has no other complaints, denies headaches, dizziness, chest pain, dyspnea, abdominal pain, nausea, vomiting, and fevers. Objective - Vital Signs/Intake and Output Vital Signs (last 24 hours): Temp Pulse Resp BP Pulse Ox 97.9 F 68 20 124/75 97 06/28/16 08:01 06/28/16 08:01 06/28/16 08:01 06/28/16 08:01 06/28/16 08:01 - Medications Medications: Current Medications Acetaminophen (Tylenol 325mg Tab) 650 mg PO Q6 PRN PRN Reason: Fever >100.4 F Last Admin: 06/27/16 09:09 Dose: 650 mg Allopurinol (Zyloprim) 100 mg PO DAILY [facility] Last Admin: 06/27/16 09:10 Dose: 100 mg Amitriptyline HCl (Elavil) 50 mg PO DAILY [facility] Last Admin: 06/27/16 09:10 Dose: 50 mg Efavirenz (Sustiva) 600 mg PO DAILY [facility] Last Admin: 06/27/16 09:10 Dose: 600 mg Furosemide (Lasix) 20 mg PO DAILY [facility] Last Admin: 06/27/16 09:17 Dose: Not Given Gabapentin (Neurontin) 600 mg PO TID [facility] Last Admin: 06/27/16 16:25 Dose: 600 mg Sodium Chloride (Sodium Chloride 0.9%) 1,000 mls @ 84 mls/hr IV .[id number] [facility] Last Admin: 06/27/16 21:20 Dose: Not Given Meropenem 500 mg/ Sodium (Chloride) 100 mls @ 100 mls/hr IVPB Q8 [facility] Last Admin: 06/28/16 01:23 Dose: 100 mls/hr Lamivudine (Epivir) 150 mg PO DAILY [facility] Last Admin: 06/27/16 09:10 Dose: 150 mg Levothyroxine Sodium (Synthroid) 50 mcg PO DAILY@0630 [facility] Last Admin: 06/28/16 06:22 Dose: 50 mcg Loratadine (Claritin) 10 mg PO DAILY [facility] Last Admin: 06/27/16 09:10 Dose: 10 mg Morphine Sulfate (Morphine) 2 mg IVP Q6 PRN PRN Reason: Pain, Mild (1-3) Ondansetron HCl (Zofran Inj) 4 mg IVP Q6 PRN PRN Reason: Nausea/Vomiting Pantoprazole Sodium (Protonix Ec Tab) 40 mg PO DAILY [facility] Last Admin: 06/27/16 09:10 Dose: 40 mg Raltegravir (Isentress) 400 mg PO DAILY [facility] Last Admin: 06/27/16 09:10 Dose: 400 mg Venlafaxine HCl (Effexor Xr) 75 mg PO DAILY [facility] Last Admin: 06/27/16 09:11 Dose: 75 mg - Labs Labs: 06/28/16 05:45 06/28/16 05:45 - Constitutional Appears: No Acute Distress - Head Exam Head Exam: ATRAUMATIC, NORMOCEPHALIC - Eye Exam Eye Exam: EOMI Pupil Exam: PERRL - Respiratory Exam Respiratory Exam: absent: Accessory Muscle Use, Chest Wall Tenderness, Decreased Breath Sounds, Prolonged Expiratory Phase, Rales - Cardiovascular Exam Cardiovascular Exam: REGULAR RHYTHM. absent: Tachycardia - GI/Abdominal Exam GI & Abdominal Exam: Soft, Normal Bowel Sounds. absent: Distended, Tenderness - Extremities Exam Extremities Exam: Normal Inspection. absent: Calf Tenderness, Tenderness - Neurological Exam Neurological Exam: Alert, Awake, Oriented x3 - Skin Skin Exam: Dry, Intact, Normal Color, Warm Assessment and Plan - Assessment and Plan (Free Text) Assessment: The patient is a 56 y/o woman w/ PMHx of HIV, Nephrolithiasis, CKD, and depression is admitted to hospital for lower back pain, difficulty urinating, and cloudy urine for 2 days prior to admission Plan: 1) Pyelonephritis VS UTI in setting of CKD -CKD currently stage 3; h/o HIV, frequent kidney stones, and yearly episodes of UTIs/Pyelo w h/o MRD e coli -Nephro Consulted, Dr. Watters, recommendations appreciated -Infectious Consulted, Dr. Molina; recommendations appreciated -Urology Consulted, Dr. Wick -Creatinine Clearance ~63.50 ---CT A/P w/o contrast (September): Calcifications consistent w medullary nephrocalcinosis. Nonobstructing bilateral renal calculi. No hydronephrosis. ---Previous UCx (September): MDR e coli -NS 1L Bolus -NS 1L @ 84mL/hr -Ceftriaxone 1gm IVPB x2 -Tylenol 650mg PO Q6H PRN Fever, w orders to instruct MD when given -Zofran 4mg IVP PRN Nausea -Morphine 2mg IVP Q6H PRN Pain -f/u BCx x2: 1st BCx no growth in 24 hours -f/u UCx: ESBL E. coli, C&S show sensitivity to imipenem ---reachd out to [facility] to ensure Sensitivity is performed, they stated it is automatic w colony count >50,000 and would need to be requested if count is <50,000. Phone # is [phone] -Day 1: Meropenem 500 mg IV Q8h -PICC line placed -DC with IV meropenem 1 gm Q12 for 7 more days tomorrow -To have visiting nurse educate how to administer antibiotics -repeat CBC, CMP for 07/03/2016 2) CKD Stage 3 w Hypokalemia -repeat GFR: 46 -repeat BUN/Cr: 24/.2 -repeat K 4.6 -Lasix 20mg PO Daily; will confirm w Nephro regarding Lasix VS HCTZ bc GFR > 30 -Allopurinol 100mg PO Daily -s/p KCl 10mEq x4 -given Po potassium chloride 40 mg once 3) HIV, not AIDS -VL (06/07): undetectable -CD4 (06/07): 774 -Isentress 400 -Epivir 150 -Sustiva 600 4) Hypothyroidism -TSH (08/06): 0.96 -Levoxyl 50mcg PO Daily -TSH 0.69, FT4 1.04 5) Neuropathy -Gabapentin 600mg PO TID 6) h/o Depression -Venlafaxine 75mg PO Daily 7) h/o HTN -Presently Controlled 8) DVT Prophylaxis -SCDs, ambulates well -Will consider further anticoagulation
[2016-06-28] MEDS: Pantoprazole 40 mg EC Tab PO SCH (09:19)
[2016-06-28] MEDS: Venlafaxine 75 mg ER Cap PO SCH (09:21)
[2016-06-28] MEDS: Sodium Chloride 0.9% 1,000 ML IV SCH ×2 (09:26→22:40)
--- NOTE | 2016-06-28 09:38 | CP.PCM.CON ---
History of Present Illness - History of Present Illness History of Present Illness: 56 yo woman well known to me from outpatient pain management clinic is admitted for likely UTI. She also has renal insufficiency. She is being hydrated and treated with abx. There is pain over the bilateral lower lumbar paraspinal regions. This may be multi-factorial, a combination of chronic lumbar spondylotic pain and current urinary condition. Past Patient History - Infectious Disease Hx of Infectious Diseases: None - Past Medical History & Family History Past Medical History?: Yes - Past Social History Smoking Status: Never Smoked Alcohol: None Drugs: Denies Home Situation {Lives}: With Family - CARDIAC Hx Hypercholesterolemia: Yes Hx Hypertension: Yes - PULMONARY Hx Asthma: No Hx Chronic Obstructive Pulmonary Disease (COPD): No - NEUROLOGICAL Hx Migraine: Yes - HEENT Hx HEENT Problems: Yes Other/Comment: Use eyeglasses - RENAL Hx Kidney Stones: Yes - ENDOCRINE/METABOLIC Hx Hypothyroidism: Yes - HEMATOLOGICAL/ONCOLOGICAL Hx Human Immunodeficiency Virus (HIV): Yes - INTEGUMENTARY Hx Dermatological Problems: No - MUSCULOSKELETAL/RHEUMATOLOGICAL Hx Arthritis: Yes Hx Rheumatoid Arthritis: Yes - GASTROINTESTINAL Hx Gastrointestinal Disorders: Yes Hx Gastroesophageal Reflux: Yes - GENITOURINARY/GYNECOLOGICAL Hx Genitourinary Disorders: Yes Hx Hematuria: Yes Hx Urinary Tract Infection: Yes Other/Comment: STONES - PSYCHIATRIC Hx Anxiety: Yes Hx Depression: Yes - SURGICAL HISTORY Hx Surgeries: Yes Hx Section: Yes (x2) Hx Musculoskeletal Surgery: Yes (left foot, hump to back of neck removed x2) Hx Tubal Ligation: Yes Other/Comment: SURGICAL REMOVAL FOR KIDNEY STONE, LYMPH NODE SURGERY, , TUBAL LIGATION. - ANESTHESIA Hx Anesthesia: Yes Hx Anesthesia Reactions: No Hx Malignant Hyperthermia: No Meds Allergies/Adverse Reactions: Allergies Allergy/AdvReac Type Severity Reaction Status Date / Time No Known Allergies Allergy Verified 06/26/16 16:14 - Medications Medications: Current Medications Acetaminophen (Tylenol 325mg Tab) 650 mg PO Q6 PRN PRN Reason: Fever >100.4 F Last Admin: 06/27/16 09:09 Dose: 650 mg Allopurinol (Zyloprim) 100 mg PO DAILY [facility] Last Admin: 06/28/16 09:21 Dose: 100 mg Amitriptyline HCl (Elavil) 50 mg PO DAILY [facility] Last Admin: 06/28/16 09:20 Dose: 50 mg Efavirenz (Sustiva) 600 mg PO DAILY [facility] Last Admin: 06/28/16 09:20 Dose: 600 mg Furosemide (Lasix) 20 mg PO DAILY [facility] Last Admin: 06/28/16 09:21 Dose: Not Given Gabapentin (Neurontin) 600 mg PO TID [facility] Last Admin: 06/28/16 09:19 Dose: 600 mg Sodium Chloride (Sodium Chloride 0.9%) 1,000 mls @ 84 mls/hr IV .[id number] [facility] Last Admin: 06/28/16 09:26 Dose: Not Given Meropenem 500 mg/ Sodium (Chloride) 100 mls @ 100 mls/hr IVPB Q8 [facility] Last Admin: 06/28/16 09:21 Dose: 100 mls/hr Lamivudine (Epivir) 150 mg PO DAILY [facility] Last Admin: 06/28/16 09:19 Dose: 150 mg Levothyroxine Sodium (Synthroid) 50 mcg PO DAILY@0630 [facility] Last Admin: 06/28/16 06:22 Dose: 50 mcg Loratadine (Claritin) 10 mg PO DAILY [facility] Last Admin: 06/28/16 09:20 Dose: 10 mg Morphine Sulfate (Morphine) 2 mg IVP Q6 PRN PRN Reason: Pain, Mild (1-3) Ondansetron HCl (Zofran Inj) 4 mg IVP Q6 PRN PRN Reason: Nausea/Vomiting Pantoprazole Sodium (Protonix Ec Tab) 40 mg PO DAILY [facility] Last Admin: 06/28/16 09:19 Dose: 40 mg Raltegravir (Isentress) 400 mg PO DAILY [facility] Last Admin: 06/28/16 09:19 Dose: 400 mg Venlafaxine HCl (Effexor Xr) 75 mg PO DAILY [facility] Last Admin: 06/28/16 09:21 Dose: 75 mg Physical Exam - Respiratory Exam Respiratory Exam: NORMAL BREATHING PATTERN - Cardiovascular Exam Cardiovascular Exam: REGULAR RHYTHM - Back Exam Back exam: paraspinal tenderness Additional comments: TTP over bilateral paraspinal regions. Results - Vital Signs Recent Vital Signs: Last Vital Signs Temp 97.9 F 06/28/16 08:01 Pulse 68 06/28/16 08:01 Resp 20 06/28/16 08:01 BP 124/75 06/28/16 08:01 Pulse Ox 97 06/28/16 08:01 - Labs Result Diagrams: 06/28/16 05:45 06/28/16 05:45 Labs: Laboratory Results - last 24 hr 06/27/16 06/28/16 16:15 05:45 WBC 7.6 RBC 3.52 L Hgb 11.3 L Hct 33.6 L MCV 95.4 MCH 32.1 H MCHC 33.7 RDW 14.4 Plt Count 238 Sodium 141 145 Potassium 3.8 4.6 Chloride 102 107 Carbon Dioxide 26 27 Anion Gap 17 16 BUN 26 H 24 H Creatinine 1.5 H 1.2 Est GFR ( Amer) 43 56 Est GFR (Non-Af Amer) 36 46 Random Glucose 122 H 103 Calcium 9.2 9.4 Assessment & Plan - Assessment and Plan (Free Text) Assessment: 56 yo woman w/ chronic pain, admitted for UTI. - resume home medications of Percocet 10/325mg q8h PRN - patient to follow up with me in outpatient clinic
--- NOTE | 2016-06-28 09:50 | CP.PCM.PN ---
Subjective - Date & Time of Evaluation Date of Evaluation: 06/28/16 Time of Evaluation: 09:48 - Subjective Subjective: No significant changes reported overnight Patient appeared to be comfortable Appetite is good No nausea or vomiting Objective - Vital Signs/Intake and Output Vital Signs (last 24 hours): Temp Pulse Resp BP Pulse Ox 97.9 F 68 20 124/75 97 06/28/16 08:01 06/28/16 08:01 06/28/16 08:01 06/28/16 08:01 06/28/16 08:01 - Medications Medications: Current Medications Acetaminophen (Tylenol 325mg Tab) 650 mg PO Q6 PRN PRN Reason: Fever >100.4 F Last Admin: 06/27/16 09:09 Dose: 650 mg Allopurinol (Zyloprim) 100 mg PO DAILY [facility] Last Admin: 06/28/16 09:21 Dose: 100 mg Amitriptyline HCl (Elavil) 50 mg PO DAILY [facility] Last Admin: 06/28/16 09:20 Dose: 50 mg Efavirenz (Sustiva) 600 mg PO DAILY [facility] Last Admin: 06/28/16 09:20 Dose: 600 mg Furosemide (Lasix) 20 mg PO DAILY [facility] Last Admin: 06/28/16 09:21 Dose: Not Given Gabapentin (Neurontin) 600 mg PO TID [facility] Last Admin: 06/28/16 09:19 Dose: 600 mg Sodium Chloride (Sodium Chloride 0.9%) 1,000 mls @ 84 mls/hr IV .[id number] [facility] Last Admin: 06/28/16 09:26 Dose: Not Given Meropenem 500 mg/ Sodium (Chloride) 100 mls @ 100 mls/hr IVPB Q8 [facility] Last Admin: 06/28/16 09:21 Dose: 100 mls/hr Lamivudine (Epivir) 150 mg PO DAILY [facility] Last Admin: 06/28/16 09:19 Dose: 150 mg Levothyroxine Sodium (Synthroid) 50 mcg PO DAILY@0630 [facility] Last Admin: 06/28/16 06:22 Dose: 50 mcg Loratadine (Claritin) 10 mg PO DAILY [facility] Last Admin: 06/28/16 09:20 Dose: 10 mg Morphine Sulfate (Morphine) 2 mg IVP Q6 PRN PRN Reason: Pain, Mild (1-3) Ondansetron HCl (Zofran Inj) 4 mg IVP Q6 PRN PRN Reason: Nausea/Vomiting Oxycodone/Acetaminophen (Percocet 5/325 Mg Tab) 2 tab PO Q8 PRN PRN Reason: Pain, severe (8-10) Stop: 07/01/16 17:01 Pantoprazole Sodium (Protonix Ec Tab) 40 mg PO DAILY [facility] Last Admin: 06/28/16 09:19 Dose: 40 mg Raltegravir (Isentress) 400 mg PO DAILY [facility] Last Admin: 06/28/16 09:19 Dose: 400 mg Venlafaxine HCl (Effexor Xr) 75 mg PO DAILY [facility] Last Admin: 06/28/16 09:21 Dose: 75 mg - Labs Labs: 06/28/16 05:45 06/28/16 05:45 - Constitutional Appears: No Acute Distress - ENT Exam ENT Exam: Mucous Membranes Moist - Respiratory Exam Respiratory Exam: absent: Chest Wall Tenderness - Cardiovascular Exam Cardiovascular Exam: absent: JVD, Rubs - GI/Abdominal Exam GI & Abdominal Exam: absent: Guarding - Extremities Exam Extremities Exam: absent: Calf Tenderness - Back Exam Back Exam: absent: CVA tenderness (L), CVA tenderness (R) - Neurological Exam Neurological Exam: Alert Assessment and Plan (1) Pyelonephritis, acute Status: Acute (2) UTI (urinary tract infection) Assessment & Plan: Acute kidney injury appeared to be recovering Urinary tract infection appeared to be improving white count coming down seen by infectious disease. CT scan noted to do ultrasound of the kidney. Stone metabolic workup needed when she is out of the urine infection could be done as outpatient Status: Acute
[2016-06-28] MEDS: Oxycodone/Acetaminophen 5/325 mg Tab PO PRN ×2 (10:23→20:55)
--- NOTE | 2016-06-28 11:45 | CP.PCM.PN ---
Subjective - Date & Time of Evaluation Date of Evaluation: 06/28/16 Time of Evaluation: 13:00 - Subjective Subjective: ID Note- Pt. seen and examined today.pt. states she feels better and states her right lower back/flank pain is much less. She denies any fever or chills, denies any nausea. Pt. states she wants to go home today. Objective - Vital Signs/Intake and Output Vital Signs (last 24 hours): Temp Pulse Resp BP Pulse Ox 97.9 F 68 20 124/75 97 06/28/16 08:01 06/28/16 08:01 06/28/16 08:01 06/28/16 08:01 06/28/16 08:01 - Medications Medications: Current Medications Acetaminophen (Tylenol 325mg Tab) 650 mg PO Q6 PRN PRN Reason: Fever >100.4 F Last Admin: 06/27/16 09:09 Dose: 650 mg Allopurinol (Zyloprim) 100 mg PO DAILY [facility] Last Admin: 06/28/16 09:21 Dose: 100 mg Amitriptyline HCl (Elavil) 50 mg PO DAILY [facility] Last Admin: 06/28/16 09:20 Dose: 50 mg Efavirenz (Sustiva) 600 mg PO DAILY [facility] Last Admin: 06/28/16 09:20 Dose: 600 mg Furosemide (Lasix) 20 mg PO DAILY [facility] Last Admin: 06/28/16 09:21 Dose: Not Given Gabapentin (Neurontin) 600 mg PO TID [facility] Last Admin: 06/28/16 09:19 Dose: 600 mg Sodium Chloride (Sodium Chloride 0.9%) 1,000 mls @ 84 mls/hr IV .[id number] [facility] Last Admin: 06/28/16 09:26 Dose: Not Given Meropenem 500 mg/ Sodium (Chloride) 100 mls @ 100 mls/hr IVPB Q8 [facility] Last Admin: 06/28/16 09:21 Dose: 100 mls/hr Lamivudine (Epivir) 150 mg PO DAILY [facility] Last Admin: 06/28/16 09:19 Dose: 150 mg Levothyroxine Sodium (Synthroid) 50 mcg PO DAILY@0630 [facility] Last Admin: 06/28/16 06:22 Dose: 50 mcg Loratadine (Claritin) 10 mg PO DAILY [facility] Last Admin: 04/07/17 09:20 Dose: 10 mg Morphine Sulfate (Morphine) 2 mg IVP Q6 PRN PRN Reason: Pain, Mild (1-3) Ondansetron HCl (Zofran Inj) 4 mg IVP Q6 PRN PRN Reason: Nausea/Vomiting Oxycodone/Acetaminophen (Percocet 5/325 Mg Tab) 2 tab PO Q8 PRN PRN Reason: Pain, severe (8-10) Stop: 07/01/16 17:01 Last Admin: 06/28/16 10:23 Dose: 2 tab Pantoprazole Sodium (Protonix Ec Tab) 40 mg PO DAILY [facility] Last Admin: 06/28/16 09:19 Dose: 40 mg Raltegravir (Isentress) 400 mg PO DAILY [facility] Last Admin: 06/28/16 09:19 Dose: 400 mg Venlafaxine HCl (Effexor Xr) 75 mg PO DAILY [facility] Last Admin: 06/28/16 09:21 Dose: 75 mg - Labs Labs: - Additional Findings Additional findings: Constitutional Appears: Non-toxic, No Acute Distress - Head Exam Head Exam: ATRAUMATIC - Eye Exam Eye Exam: EOMI, PERRL - ENT Exam ENT Exam: Normal Oropharynx - Neck Exam Neck exam: Positive for: Full Rom - Respiratory Exam Respiratory Exam: Clear to Auscultation Bilateral, NORMAL BREATHING PATTERN - Cardiovascular Exam Cardiovascular Exam: RRR, +S1, +S2 - GI/Abdominal Exam GI & Abdominal Exam: Normal Bowel Sounds, Soft Additional comments: NT, ND Left CVA no tenderness today - Extremities Exam Extremities exam: Positive for: normal inspection Neuro- AAO x 3 Laboratory Results - last 72 hr 06/26/16 06/26/16 06/27/16 17:10 17:20 05:55 WBC 15.5 H D 9.8 RBC 4.16 3.52 L Hgb 13.1 11.3 L Hct 39.4 33.0 L MCV 94.8 93.8 MCH 31.5 H 31.9 H MCHC 33.2 34.1 RDW 14.5 14.0 Plt Count 288 228 MPV 8.2 Neut % (Auto) 71.9 Lymph % (Auto) 18.6 L [place] % (Auto) 8.7 Eos % (Auto) 0.4 Baso % (Auto) 0.4 Neut # 11.1 H Lymph # 2.9 [place] # 1.4 H Eos # 0.1 Baso # 0.1 D-Dimer, Quantitative 0.34 pO2 18 L VBG pH 7.53 H VBG pCO2 37 L VBG HCO3 29.3 VBG Total CO2 32.0 H VBG O2 Sat (Calc) 37.8 L VBG Base Excess 7.8 H VBG Potassium 2.8 L Glucose 97 Lactate 1.6 FiO2 21.0 Sodium 137 134.0 142 Potassium 2.8 L 3.2 L Chloride 93 L 97.0 L 101 Carbon Dioxide 28 27 Anion Gap 19 17 BUN 28 H 28 H Creatinine 1.3 H 1.5 H Est GFR ( Amer) 51 43 Est GFR (Non-Af Amer) 42 36 Random Glucose 96 116 H Calcium 10.1 9.3 Total Bilirubin 0.8 AST 37 H ALT 28 Alkaline Phosphatase 127 H Total Protein 9.2 H Albumin 4.6 Globulin 4.6 H Albumin/Globulin Ratio 1.0 Free T4 1.04 TSH 3rd Generation 0.69 Venous Blood Potassium 2.8 L Urine Color Yellow Urine Clarity Slight-cloudy Urine pH 7.0 Ur Specific [place] 1.015 Urine Protein 30 Urine Glucose (UA) Negative Urine Ketones Negative Urine Blood Negative Urine Nitrate Negative Urine Bilirubin Negative Urine Urobilinogen 0.2 Ur Leukocyte Esterase Mod Urine RBC (Auto) 2 Urine Microscopic WBC 24 H Ur Squamous Epith Cells 4 Amorphous Sediment Few H Urine Bacteria Rare Influenza Typ A,B (EIA) Negative for flu a/b 06/27/16 06/28/16 16:15 05:45 WBC 7.6 RBC 3.52 L Hgb 11.3 L Hct 33.6 L MCV 95.4 MCH 32.1 H MCHC 33.7 RDW 14.4 Plt Count 238 MPV Neut % (Auto) Lymph % (Auto) [place] % (Auto) Eos % (Auto) Baso % (Auto) Neut # Lymph # [place] # Eos # Baso # D-Dimer, Quantitative pO2 VBG pH VBG pCO2 VBG HCO3 VBG Total CO2 VBG O2 Sat (Calc) VBG Base Excess VBG Potassium Glucose Lactate FiO2 Sodium 141 145 Potassium 3.8 4.6 Chloride 102 107 Carbon Dioxide 26 27 Anion Gap 17 16 BUN 26 H 24 H Creatinine 1.5 H 1.2 Est GFR ( Amer) 43 56 Est GFR (Non-Af Amer) 36 46 Random Glucose 122 H 103 Calcium 9.2 9.4 Total Bilirubin AST ALT Alkaline Phosphatase Total Protein Albumin Globulin Albumin/Globulin Ratio Free T4 TSH 3rd Generation Venous Blood Potassium Urine Color Urine Clarity Urine pH Ur Specific [place] Urine Protein Urine Glucose (UA) Urine Ketones Urine Blood Urine Nitrate Urine Bilirubin Urine Urobilinogen Ur Leukocyte Esterase Urine RBC (Auto) Urine Microscopic WBC Ur Squamous Epith Cells Amorphous Sediment Urine Bacteria Influenza Typ A,B (EIA) Microbiology 06/26/16 17:10 Urine Urine Culture - Final Escherichia Coli 06/26/16 17:30 Blood Blood Culture - Preliminary NO GROWTH AFTER 24 HOURS 06/26/16 17:10 Blood Blood Culture - Preliminary NO GROWTH AFTER 24 HOURS Assessment and Plan - Assessment and Plan (Free Text) Assessment: A/P- 56 y/o female with HIV on HAART, CKD, Nephrolithiasis with frequent E.Coli UTIs presented with left flank pain. clinially better. remains afebrile Leukocytosis has resolved. Urine cx- ESBl e.coli sens to carbapenem blood cx- neg plan- await ID and sensitivity of the GNR in urine cx. check 2 blood cx. pt. is s/p picc line today. advise to d/c on IV meropenem 1 gram q12 hours for 7-10 days. keep well hydrated. continue current HAART meds as per her PMD. pt. also advised f/u with nanny babysitter input and to speak with funeral director/embalmer to help avoid foods that are high in purine . pt. advised to be seen by her PMD next week and have repeat UA and monitor her wbc and creatinine closely with her PMD and nanny babysitter. advised pt. if she develops any fever or pain again to return to ER. all above d/w FP team as well. Pt. verbalizes full understanding of all above and agrees with above plan of care.
[2016-06-28] MEDS ORDERED: Lidocaine 1% Inj (20ml) ONE (11:56)
--- NOTE | 2016-06-28 12:30 | PCM.SURG1 ---
Surgeon's Initial Post Op Note - Surgeon's Notes Surgeon: Fred Mckeon MD Inking Machine Tender: NONE Type of Anesthesia: Local Pre-Operative Diagnosis: UTI Operative Findings: US showed patent right basilic vein. Post-Operative Diagnosis: UTI Operation Performed: Right basilic vein single lumen picc placement, 37 CM. Tip in SVC. Specimen/Specimens Removed: NONE Estimated Blood Loss: EBL {In ML}: 2 Blood Products Given: N/A Drains Used: No Drains Post-Op Condition: Fair Date of Surgery/Procedure: 06/28/16 Time of Surgery/Procedure: 12:25
--- NOTE | 2016-06-28 14:13 | US ---
PROCEDURE: Ultrasound of the Kidneys HISTORY: calcinosis COMPARISON: CT abdomen and pelvis from 06/27/2016 TECHNIQUE: Grayscale imaging was performed. FINDINGS: RIGHT KIDNEY: Measures: 11.6 cm. Normal in size, contour and echogenicity. There is a cluster of medullary microcalcifications in the lower pole. No stone, solid mass lesion or hydronephrosis visualized. LEFT KIDNEY: Measures: 10.5 cm. Normal in size, contour and echogenicity. There are discrete medullary calcifications, in the upper pole measuring 10 mm, interpolar region 9 mm and lower pole a 8 mm. No stone, solid mass lesion or hydronephrosis visualized. OTHER FINDINGS: None. IMPRESSION: Bilateral medullary calcifications, more coarse on the left, the largest in the upper pole measures 10 mm. Findings are most compatible with nephrocalcinosis. No hydronephrosis or renal stones.
--- NOTE | 2016-06-28 14:44 | VASCULAR ---
PROCEDURE: Date of procedure: 06/28/2016 Procedure: 1. Placement of a right arm PICC with ultrasound and fluoroscopic guidance, CPT 28439 2. PICC tip confirmation with spot radiograph and is in the superior vena cava Medications: 1 percent lidocaine HISTORY: UTI requiring long-term IV antibiotics TECHNIQUE: Following informed consent and procedure time-out, the patient was placed supine on the interventional table and the right arm prepped and draped in the usual sterile fashion. Ultrasound showed a patent and compressible right basilic vein. After the skin was anesthetized with lidocaine, the basilic vein was accessed with micro micropuncture technique using ultrasound guidance. A guidewire was then advanced under fluoroscopic guidance into the superior vena cava. An image documenting ultrasound guidance for vascular access was permanently saved. The length of the single-lumen 4 [place] PICC was trimmed to 37 centimeters and advanced through a peel-away sheath. The PICC was position with tip of PICC confirm a spot radiograph the superior vena cava. The PICC was secured to the patient's skin. The PICC was flushed. A biopatch and sterile dressing was applied. IMPRESSION: Placement of a single-lumen 4 [place] PICC trimmed to 37 centimeters via right basilic vein. The tip of the PICC is confirmed with spot radiograph and is in the superior vena cava.
[2016-06-28 15:31] LABS: PARTIAL THROMBOPLASTIN TIME 20.8 SECONDS (23.3-32.5)
[2016-06-29] MEDS: Meropenem 500 MG in Sodium Chloride 0.9% 100 ML IVPB SCH ×2 (00:26→08:58)
[2016-06-29] MEDS: Levothyroxine 50 MCG TAB PO SCH (06:13)
--- NOTE | 2016-06-29 06:54 | CP.PCM.DIS ---
Provider - Provider Date of Admission: 06/27/16 14:36 Attending physician: Mary Kate Bowers MD Time Spent in preparation of Discharge (in minutes): 45 Hospital Course - Lab Results Lab Results: Micro Results 06/27/16 16:15 Blood-Venous Blood Culture - Preliminary NO GROWTH AFTER 24 HOURS Most Recent Lab Values WBC 7.6 K/uL (4.8-10.8) 06/28/16 05:45 RBC 3.52 Mil/uL (3.80-5.20) L 06/28/16 05:45 Hgb 11.3 g/dL (12.0-16.0) L 06/28/16 05:45 Hct 33.6 % (34.0-47.0) L 06/28/16 05:45 MCV 95.4 fl (81.0-99.0) 06/28/16 05:45 MCH 32.1 pg (27.0-31.0) H 06/28/16 05:45 MCHC 33.7 g/dL (33.0-37.0) 06/28/16 05:45 RDW 14.4 % (11.5-14.5) 06/28/16 05:45 Plt Count 238 K/uL (130-400) 06/28/16 05:45 MPV 8.2 fl (7.2-11.7) 06/26/16 17:10 Neut % (Auto) 71.9 % (50.0-75.0) 06/26/16 17:10 Lymph % (Auto) 18.6 % (20.0-40.0) L 06/26/16 17:10 [place] % (Auto) 8.7 % (0.0-10.0) 06/26/16 17:10 Eos % (Auto) 0.4 % (0.0-4.0) 06/26/16 17:10 Baso % (Auto) 0.4 % (0.0-2.0) 06/26/16 17:10 Neut # 11.1 K/uL (1.8-7.0) H 06/26/16 17:10 Lymph # 2.9 K/uL (1.0-4.3) 06/26/16 17:10 [place] # 1.4 K/uL (0.0-0.8) H 06/26/16 17:10 Eos # 0.1 K/uL (0.0-0.7) 06/26/16 17:10 Baso # 0.1 K/uL (0.0-0.2) 06/26/16 17:10 PT 10.7 SECONDS (9.6-11.2) 06/28/16 14:49 INR 1.03 (0.92-1.08) 06/28/16 14:49 APTT 20.8 SECONDS (23.3-32.5) L 06/28/16 14:49 D-Dimer, Quantitative 0.34 mg/L FEU (0-0.50) 06/26/16 17:10 pO2 18 mm/Hg (30-55) L 06/26/16 17:20 VBG pH 7.53 (7.32-7.43) H 06/26/16 17:20 VBG pCO2 37 mmHg (40-60) L 06/26/16 17:20 VBG HCO3 29.3 mmol/L 06/26/16 17:20 VBG Total CO2 32.0 mmol/L (22-28) H 06/26/16 17:20 VBG O2 Sat (Calc) 37.8 % (40-65) L 06/26/16 17:20 VBG Base Excess 7.8 mmol/L (0.0-2.0) H 06/26/16 17:20 VBG Potassium 2.8 mmol/L (3.6-5.2) L 06/26/16 17:20 Sodium 134.0 mmol/L (132-148) 06/26/16 17:20 Chloride 97.0 mmol/L (98-107) L 06/26/16 17:20 Glucose 97 mg/dL (65-105) 06/26/16 17:20 Lactate 1.6 mmol/L (0.7-2.1) 06/26/16 17:20 FiO2 21.0 % 06/26/16 17:20 Sodium 145 mmol/l (132-148) 06/28/16 05:45 Potassium 4.6 MMOL/L (3.6-5.0) 06/28/16 05:45 Chloride 107 mmol/L (98-107) 06/28/16 05:45 Carbon Dioxide 27 mmol/L (22-30) 06/28/16 05:45 Anion Gap 16 (10-20) 06/28/16 05:45 BUN 24 mg/dl (7-17) H 06/28/16 05:45 Creatinine 1.2 mg/dL (0.7-1.2) 06/28/16 05:45 Est GFR ( Amer) 56 06/28/16 05:45 Est GFR (Non-Af Amer) 46 06/28/16 05:45 Random Glucose 103 mg/dL (65-105) 06/28/16 05:45 Calcium 9.4 mg/dL (8.4-10.2) 06/28/16 05:45 Total Bilirubin 0.8 mg/dl (0.2-1.3) 06/26/16 17:10 AST 37 U/L (14-36) H 06/26/16 17:10 ALT 28 U/L (9-52) 06/26/16 17:10 Alkaline Phosphatase 127 U/L (38-126) H 06/26/16 17:10 Total Protein 9.2 G/DL (6.3-8.2) H 06/26/16 17:10 Albumin 4.6 g/dL (3.5-5.0) 06/26/16 17:10 Globulin 4.6 gm/dL (2.2-3.9) H 06/26/16 17:10 Albumin/Globulin Ratio 1.0 (1.0-2.1) 06/26/16 17:10 Free T4 1.04 ng/dL (0.78-2.19) 06/27/16 05:55 TSH 3rd Generation 0.69 mIU/ML (0.46-4.68) 06/27/16 05:55 Venous Blood Potassium 2.8 mmol/L (3.6-5.2) L 06/26/16 17:20 Urine Color Yellow (YELLOW) 06/26/16 17:10 Urine Clarity Slight-cloudy (Clear) 06/26/16 17:10 Urine pH 7.0 (5.0-8.0) 06/26/16 17:10 Ur Specific [place] 1.015 (1.003-1.030) 06/26/16 17:10 Urine Protein 30 mg/dL (NEGATIVE) 06/26/16 17:10 Urine Glucose (UA) Negative mg/dL (Normal) 06/26/16 17:10 Urine Ketones Negative mg/dL (NEGATIVE) 06/26/16 17:10 Urine Blood Negative (NEGATIVE) 06/26/16 17:10 Urine Nitrate Negative (NEGATIVE) 06/26/16 17:10 Urine Bilirubin Negative (NEGATIVE) 06/26/16 17:10 Urine Urobilinogen 0.2 mg/dL (0.2-1.0) 06/26/16 17:10 Ur Leukocyte Esterase Mod [place]/uL (Negative) 06/26/16 17:10 Urine RBC (Auto) 2 /hpf (0-3) 06/26/16 17:10 Urine Microscopic WBC 24 /hpf (0-5) H 06/26/16 17:10 Ur Squamous Epith Cells 4 /hpf (0-5) 06/26/16 17:10 Amorphous Sediment Few /ul (<OCC) H 06/26/16 17:10 Urine Bacteria Rare (<OCC) 06/26/16 17:10 Influenza Typ A,B (EIA) Negative for flu a/b (NEGATIVE) 06/26/16 17:10 - Hospital Course Hospital Course: Patient 56 y/o female HIV, Hx of multiple URI and kidney stone admitted for pyelonephritis and acuto on chronic kidney diseeas. pateitn started on third generations of cephalosporins, and IV fluids, ID was consulted, blood cX negative, and urine culture showed E coli, ESBL, sensitive to meropenen, patient went to IR PICC line inserted and started to received meropenen 500 mg IV q 8 hrs, patietn jenkins been afebrile today second day of ABX denied any pain she also denied nausea, vomits diarrhea, chest pain palpitations SOB, . nursing infusion center aware and will go today for continue treatment at home. ) Pyelonephritis VS UTI in setting of CKD -CKD currently stage 3; h/o HIV, frequent kidney stones, and yearly episodes of UTIs/Pyelo w h/o MRD e coli -Nephro Consulted, Dr. Watters, recommendations appreciated -Infectious Consulted, Dr. Molina; recommendations appreciated -Urology Consulted, Dr. Wick -Creatinine Clearance ~63.50 ---CT A/P w/o contrast (September): Calcifications consistent w medullary nephrocalcinosis. Nonobstructing bilateral renal calculi. No hydronephrosis. ---Previous UCx (September): MDR e coli -NS 1L Bolus -NS 1L @ 84mL/hr -Ceftriaxone 1gm IVPB x2 -Tylenol 650mg PO Q6H PRN Fever, w orders to instruct MD when given -Zofran 4mg IVP PRN Nausea -Morphine 2mg IVP Q6H PRN Pain -f/u BCx x2: 1st BCx no growth in 24 hours -f/u UCx: ESBL E. coli, C&S show sensitivity to imipenem ---reachd out to [facility] to ensure Sensitivity is performed, they stated it is automatic w colony count >50,000 and would need to be requested if count is <50,000. Phone # is [phone] -Day 1: Meropenem 500 mg IV Q8h -PICC line placed -DC with IV meropenem 1 gm Q12 for 7 more days tomorrow -To have visiting nurse educate how to administer antibiotics -repeat CBC, CMP for 07/03/2016 2) CKD Stage 3 w Hypokalemia -repeat GFR: 46 -repeat BUN/Cr: 24/.2 -repeat K 4.6 -Lasix 20mg PO Daily; will confirm w Nephro regarding Lasix VS HCTZ bc GFR > 30 -Allopurinol 100mg PO Daily -s/p KCl 10mEq x4 -given Po potassium chloride 40 mg once 3) HIV, not AIDS -VL (06/07): undetectable -CD4 (06/07): 774 -Isentress 400 -Epivir 150 -Sustiva 600 4) Hypothyroidism -TSH (08/06): 0.96 -Levoxyl 50mcg PO Daily -TSH 0.69, FT4 1.04 5) Neuropathy -Gabapentin 600mg PO TID Discharge Exam - Head Exam Head Exam: ATRAUMATIC, NORMOCEPHALIC - Eye Exam Eye Exam: Normal appearance - Respiratory Exam Respiratory Exam: Clear to PA & Lateral - Cardiovascular Exam Cardiovascular Exam: REGULAR RHYTHM, RRR, +S1, +S2 - GI/Abdominal Exam GI & Abdominal Exam: Normal Bowel Sounds, Soft. absent: Tenderness - Extremities Exam Additional comments: Right arm PICC line inserted , no swelling no redness, , no tenderness, radial pulses present and synchronic B/L - Back Exam Back exam: absent: CVA tenderness (L), CVA tenderness (R) - Neurological Exam Neurological exam: Alert, Normal Gait, Oriented x3 - Skin Skin Exam: Normal Color Discharge Plan - Discharge Medications Prescriptions: Meropenem [[facility] Rx Meropenem] 1 gm IV Q12H #14 pds - Follow Up Plan Condition: STABLE Disposition: HOME/ ROUTINE Instructions: Urinary Tract Infection in Women (DC), Urinary Tract Infection in Men (DC), Acute Pyelonephritis (DC), Acute Pyelonephritis (GEN), Dysuria (GEN ), Extended Spectrum Beta Lactamase (GEN) Additional Instructions: CBC /CMP in 07/03/16 f/u with Dr Ortiz 07/04/14 Meropenen 1 g IV q 12hr for 7 days Referrals: Aletha Molina MD [Staff Provider] - Dereje Farias MD [Family Provider] - Pranay Wick MD [Staff Provider] -
[2016-06-29 08:39] VITALS: PULSE 78; RESP 18; TEMP 98.3; O2SAT 99
[2016-06-29] MEDS: Venlafaxine 75 mg ER Cap PO SCH (08:57)
[2016-06-29] MEDS: Pantoprazole 40 mg EC Tab PO SCH (08:59)
[2016-06-29 09:00] VITALS: BP 135/69
== END 2016-06-29 14:30 | disposition home or self-care (01) | DRG 320 ==
LOC: H.ER 16:07 → H.ERHOLD 20:33 → H.MEDSURG1 22:15 → OBSVTOIN 06-27 14:36
PROVIDERS: ADMIT Family Medicine Geriatric Medicine; ATTEND Family Medicine Geriatric Medicine
PROC: 02HV33Z Insertion of Infusion Device into Superior Vena Cava, Percutaneous Approach (ICD-10-PCS; principal; 2016-06-28)
PROC: B518ZZA Fluoroscopy of Superior Vena Cava, Guidance (ICD-10-PCS; 2016-06-28)
PROC: 3E04329 Introduction of Other Anti-infective into Central Vein, Percutaneous Approach (ICD-10-PCS; 2016-06-28)
DX: N10 Acute pyelonephritis (principal); E87.6 Hypokalemia; N17.9 Acute kidney failure, unspecified; N18.3 Chronic kidney disease, stage 3 (moderate); K76.0 Fatty (change of) liver, not elsewhere classified; G62.9 Polyneuropathy, unspecified; I12.9 Hypertensive chronic kidney disease with stage 1 through stage 4 chronic kidney disease, or unspecified chronic kidney disease; B96.20 Unspecified Escherichia coli [E. coli] as the cause of diseases classified elsewhere; Z21 Asymptomatic human immunodeficiency virus [HIV] infection status; E03.9 Hypothyroidism, unspecified; G89.29 Other chronic pain; N20.0 Calculus of kidney; K57.30 Diverticulosis of large intestine without perforation or abscess without bleeding; K21.9 Gastro-esophageal reflux disease without esophagitis; F32.9 Major depressive disorder, single episode, unspecified; M06.9 Rheumatoid arthritis, unspecified; M79.7 Fibromyalgia; E78.00 Pure hypercholesterolemia, unspecified; Z79.899 Other long term (current) drug therapy; Z87.440 Personal history of urinary (tract) infections; Z87.442 Personal history of urinary calculi

== ENCOUNTER 2016-07-17 10:18 | Emergency (ER) | payer MEDICAID ==
[2016-07-17 10:35] VITALS: BMI 30.4
[2016-07-17] MEDS ORDERED: Sodium Chloride 0.9% 1,000 ML IV STA (10:53)
--- NOTE | 2016-07-17 11:06 | ED PDOC ---
HPI: Abdomen Time Seen by Provider: 07/17/16 11:04 Chief Complaint (Nursing): GI Problem Chief Complaint (Provider): nausea History Per: Patient (56 y/o female h/o HIV undetectable viral load 05/2016 recent d/c from hospital 06/29 for pyelonephritis here with right flank pain/ nausea/vomiting. Patient states symptoms began today and notes chills associated with symptoms. 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 Has been on meropenem 1gm q12 x 7 days after discharge. Not currently on antibiotics.) Location Of Pain/Discomfort: Other Past Medical History Reviewed: Historical Data, Nursing Documentation, Vital Signs Vital Signs: Last Vital Signs Temp 98.0 F 07/17/16 10:27 Pulse 80 07/17/16 10:27 Resp 16 07/17/16 10:27 BP 138/76 07/17/16 10:27 Pulse Ox 100 07/17/16 13:31 - Medical History PMH: Anxiety, Arthritis, Back Problems, Depression, Fibromyalgia, GERD, HIV, HTN , Hypercholesterolemia, Hypothyroidism, Kidney Stones, Migraine, Chronic Kidney Disease, Rheumatoid Arthritis, Chronic Pain (cervical, lumbar) Denies: Asthma, COPD - Surgical History Surgical History: - Family History Family History: States: Unknown Family Hx, [place] (Father had a heart attack >55yo) - Immunization History Hx Tetanus Toxoid Vaccination: Yes (current) Hx Influenza Vaccination: Yes (12/2013) Hx Pneumococcal Vaccination: No - Home Medications Home Medications: Ambulatory Orders Medication Instructions Recorded Allopurinol [Zyloprim] 100 mg PO DAILY 06/26/16 Amitriptyline [Elavil] 50 mg PO HS 06/26/16 Efavirenz [Sustiva] 600 mg PO HS 06/26/16 Gabapentin [Neurontin] 1,200 mg PO BID 06/26/16 Lamivudine [Epivir] 150 mg PO DAILY 06/26/16 Levothyroxine [Synthroid] 50 mcg PO DAILY 06/26/16 Loratadine [Allergy] 10 mg PO DAILY 06/26/16 Omeprazole 20 mg PO DAILY 06/26/16 Raltegravir Potassium [Isentress] 400 mg PO BID 06/26/16 Venlafaxine [Effexor XR] 225 mg PO DAILY 06/26/16 Ciprofloxacin HCl [Cipro] 500 mg PO BID #14 tablet 07/17/16 Furosemide [Lasix] 20 mg PO DAILY 07/17/16 Ibuprofen [Motrin] 600 mg PO Q8 PRN #21 tab 07/17/16 Multivitamin [Multi-Vitamin Daily] 1 tab PO DAILY 07/17/16 Ondansetron ODT [Zofran ODT] 4 mg PO Q8 PRN #10 odt 07/17/16 Ondansetron [Zofran Tab] 4 mg PO BID PRN 07/17/16 Oxycodone HCl/Acetaminophen 1 tab PO TID PRN 07/17/16 [Percocet 10-325 mg Tablet] Potassium Citrate [Urocit-K] 15 meq PO BID 07/17/16 Tamsulosin [Flomax] 0.4 mg PO DAILY #7 cap 07/17/16 oxyCODONE/Acetaminophen [Percocet 1 ea PO Q6 PRN #8 tab 07/17/16 5/325 mg Tab] - Allergies Allergies/Adverse Reactions: Allergies Allergy/AdvReac Type Severity Reaction Status Date / Time No Known Allergies Allergy Verified 06/26/16 16:14 Review of Systems ROS Statement: Except As Marked, All Systems Reviewed And Found Negative Physical Exam - Reviewed Nursing Documentation Reviewed: Yes Vital Signs Reviewed: Yes - Physical Exam Appears: Positive for: Well, Non-toxic, No Acute Distress Head Exam: Positive for: ATRAUMATIC, NORMAL INSPECTION, NORMOCEPHALIC Skin: Positive for: Normal Color, Warm, DRY Eye Exam: Positive for: EOMI, Normal appearance, PERRL ENT: Positive for: Normal ENT Inspection Neck: Positive for: Normal, Painless ROM Cardiovascular/Chest: Positive for: Regular Rate, Rhythm Respiratory: Positive for: CNT, Normal Breath Sounds Gastrointestinal/Abdominal: Positive for: Normal Exam, Bowel Sounds, Soft, Tenderness (right flank tenderness) Back: Positive for: Normal Inspection Extremity: Positive for: Normal ROM Neurologic/Psych: Positive for: Alert, Oriented - Laboratory Results Result Diagrams: 07/17/16 11:24 07/17/16 11:24 - ECG O2 Sat by Pulse Oximetry: 100 - Progress ED Course And Treament: URINALYSIS NEGATIVE FOR FINDINGS OF UTI ZOFRAN 4 MG IV X 1 DOSE FOR NAUSEA DILAUDID 0.5 MG IV X 1 DOSE/ZOFRAN 4MG IV FOR PAIN NS [address] OF ABDOMEN/PELVIS DEMONSTRATES 5MM RENAL CALCULI WITH HYDRONEPHROSIS. D/W PATIENT. PATIENT TO F/U WITH DR. BEGUM UROLOGY THIS FRIDAY. TORADOL 15 MG IVX 1 DOSE FOR PAIN CONTROL Medical Decision Making Medical Decision Making: CT Abd/pel Impression: Obstructing proximal right ureteral 5 mm calculus with right hydronephrosis. Bilateral renal medullary calcifications. Multiple small stable nodules at lung bases, 4 mm or less. Fatty infiltration of the liver. Small hiatal hernia. Disposition - Clinical Impression Clinical Impression: Renal colic - Patient ED Disposition Is Patient to be Admitted: No - Disposition Referrals: Philly Begum MD [Medical Doctor] - Disposition: Routine/Home Disposition Time: 13:40 Condition: FAIR Prescriptions: Ciprofloxacin HCl [Cipro] 500 mg PO BID #14 tablet Ibuprofen [Motrin] 600 mg PO Q8 PRN #21 tab PRN Reason: Pain, Moderate (4-7) Ondansetron ODT [Zofran ODT] 4 mg PO Q8 PRN #10 odt PRN Reason: Nausea/Vomiting oxyCODONE/Acetaminophen [Percocet 5/325 mg Tab] 1 ea PO Q6 PRN #8 tab PRN Reason: Pain, Severe (8-10) Tamsulosin [Flomax] 0.4 mg PO DAILY #7 cap Instructions: Kidney Stones (ED) Forms: [facility] ED School/Work Excuse
[2016-07-17 11:40] LABS: BASO % 0.3 % (0.0-2.0); EOS % 0.1 % (0.0-4.0); HEMATOCRIT 39.7 % (34.0-47.0); LYMPH # 1.8 K/uL (1.0-4.3); LYMPH % 19.7 % (20.0-40.0); MEAN CELL VOLUME 95.2 fl (81.0-99.0); MEAN CORPUSCULAR HGB CONC 33.6 g/dL (33.0-37.0); MEAN PLATELET VOLUME 7.7 fl (7.2-11.7); MONO # 0.6 K/uL (0.0-0.8); MONO % 6.6 % (0.0-10.0); NEUT # 6.8 K/uL (1.8-7.0); NEUT % 73.3 % (50.0-75.0); NRBC % 0.1 % (0.0-0.0); RED CELL DISTRIBUTION WIDTH 14.1 % (11.5-14.5); WHITE BLOOD COUNT 9.3 K/uL (4.8-10.8)
[2016-07-17 11:56] LABS: ALB/GLOB RATIO 0.9 (1.0-2.1); ALKALINE PHOSPHATASE 123 U/L (38-126); ALT/SGPT 27 U/L (9-52); AST/SGOT 42 U/L (14-36); BILIRUBIN,TOTAL 0.8 mg/dl (0.2-1.3); BLOOD UREA NITROGEN 16 mg/dl (7-17); CALCIUM 10.5 mg/dL (8.4-10.2); CARBON DIOXIDE 21 mmol/L (22-30); CHLORIDE 106 mmol/L (98-107); GFR AFRICAN-AMERICAN > 60; GLUCOSE,RANDOM 122 mg/dL (65-105); LIPASE < 10 U/L (23-300); SODIUM 144 mmol/l (132-148)
[2016-07-17 11:57] LABS: VENOUS BLOOD GAS BASE EXCESS 0.1 mmol/L (0.0-2.0); VENOUS BLOOD GAS PCO2 35 mmHg (40-60); VENOUS BLOOD PH 7.44 (7.32-7.43)
[2016-07-17 12:04] LABS: RBC URINE 3 /hpf (0-3); URINE BILIRUBIN NEGATIVE (NEGATIVE); URINE BLOOD NEGATIVE (NEGATIVE); URINE COLOR YELLOW (YELLOW); URINE GLUCOSE (UA) NEGATIVE (Normal); URINE KETONE NEGATIVE (NEGATIVE); URINE LEUKOCYTE ESTERASE NEGATIVE Leu/uL (Negative); URINE PROTEIN >=300 mg/dL (NEGATIVE); URINE UROBILINOGEN 0.2 mg/dL (0.2-1.0)
[2016-07-17 12:05] LABS: WBC URINE 4 /hpf (0-5)
[2016-07-17 12:09] LABS: POTASSIUM 4.7 MMOL/L (3.6-5.0)
[2016-07-17] MEDS ORDERED: HYDROmorphone 0.5 mg/0.5 ml ISec IVP STA (12:11)
--- NOTE | 2016-07-17 13:12 | CT ---
PROCEDURE: CT Abdomen and Pelvis without intravenous contrast HISTORY: right flank pain COMPARISON: 06/27/2016 TECHNIQUE: Without contrast.. Contrast Dose: 0 Radiation dose: Total exam DLP = 954.63 mGy-cm. This CT exam was performed using one or more of the following dose reduction techniques: Automated exposure control, adjustment of the mA and/or kV according to patient size, and/or use of iterative reconstruction technique. FINDINGS: LOWER THORAX: Multiple small nodules at both lung bases unchanged from prior examination. Some of these are pleural-based. No change compared to visualize lung bases on abdominal CT dating back to 11/06/2013. Very small hiatal hernia. LIVER: Normal size and contour. Mildly diminished attenuation, diffusely, consistent with fatty infiltration. No mass. No biliary ductal dilatation. GALLBLADDER AND BILE DUCTS: Unremarkable. PANCREAS: No mass. Extensive fatty atrophy. SPLEEN: Unremarkable. ADRENALS: Unremarkable. No mass. KIDNEYS AND URETERS: Extensive bilateral medullary calcifications. Mild right hydronephrosis with obstructing calculus in proximal right ureter, 5 mm greatest dimension as measured off of coronal images. No left hydronephrosis. No renal mass. VASCULATURE: Unremarkable. No aortic aneurysm. BOWEL: Scattered colonic diverticulae, most numerous in transverse colon. No evidence of diverticulitis. No bowel obstruction. APPENDIX: Not identified. No secondary findings concerning for appendicitis. PERITONEUM: Unremarkable. No free fluid. No free air. LYMPH NODES: Unremarkable. No enlarged lymph nodes. BLADDER: Unremarkable. REPRODUCTIVE: Unremarkable postmenopausal uterus. BONES: No acute fracture. OTHER FINDINGS: None. IMPRESSION: Obstructing proximal right ureteral 5 mm calculus with right hydronephrosis. Bilateral renal medullary calcifications. Multiple small stable nodules at lung bases, 4 mm or less. Fatty infiltration of the liver. Small hiatal hernia. R
[2016-07-17 13:52] VITALS: BP 123/68; PULSE 82; RESP 18; TEMP 98.7; O2SAT 98
--- NOTE | 2016-07-18 08:26 | CARD ---
APPROVED REPORT EKG Measurement Heart [id number] CT [id number] <Conclusion> Normal sinus rhythm Normal ECG
== END 2016-07-17 13:52 | disposition home or self-care (01) ==
LOC: H.ER 10:18
DX: N13.2 Hydronephrosis with renal and ureteral calculous obstruction (principal); R11.2 Nausea with vomiting, unspecified; K44.9 Diaphragmatic hernia without obstruction or gangrene; B20 Human immunodeficiency virus [HIV] disease; E78.00 Pure hypercholesterolemia, unspecified; F41.9 Anxiety disorder, unspecified; I12.9 Hypertensive chronic kidney disease with stage 1 through stage 4 chronic kidney disease, or unspecified chronic kidney disease; K21.9 Gastro-esophageal reflux disease without esophagitis; M06.9 Rheumatoid arthritis, unspecified; M79.7 Fibromyalgia

== ENCOUNTER 2016-07-30 13:11 | Inpatient (IN) | payer MEDICAID ==
[2016-07-30 13:12] VITALS: BMI 32.4
[2016-07-30 14:47] LABS: BASO % 0.4 % (0.0-2.0); EOS # 0.2 K/uL (0.0-0.7); EOS % 1.4 % (0.0-4.0); HEMATOCRIT 39.4 % (34.0-47.0); LYMPH # 2.5 K/uL (1.0-4.3); LYMPH % 22.7 % (20.0-40.0); MEAN CORPUSCULAR HEMOGLOBIN 31.3 pg (27.0-31.0); MEAN CORPUSCULAR HGB CONC 32.9 g/dL (33.0-37.0); MEAN PLATELET VOLUME 8.1 fl (7.2-11.7); MONO # 0.6 K/uL (0.0-0.8); MONO % 4.9 % (0.0-10.0); NEUT # 7.9 K/uL (1.8-7.0); NEUT % 70.6 % (50.0-75.0); RED CELL DISTRIBUTION WIDTH 14.4 % (11.5-14.5); WHITE BLOOD COUNT 11.2 K/uL (4.8-10.8)
[2016-07-30 15:04] LABS: RBC URINE 160 /hpf (0-3); URINE BACTERIA OCC (<OCC); URINE BILIRUBIN NEGATIVE (NEGATIVE); URINE BLOOD MODERATE (NEGATIVE); URINE COLOR YELLOW (YELLOW); URINE GLUCOSE (UA) NEG (Normal); URINE KETONE NEGATIVE (NEGATIVE); URINE LEUKOCYTE ESTERASE SMALL Leu/uL (Negative); URINE PROTEIN 100 mg/dL (NEGATIVE); URINE UROBILINOGEN 0.2-1.0 mg/dL (0.2-1.0); WBC URINE 28 /hpf (0-5)
--- NOTE | 2016-07-30 15:08 | CT ---
PROCEDURE: CT Abdomen and Pelvis without intravenous contrast HISTORY: right flank pain COMPARISON: None. TECHNIQUE: Without contrast.. Contrast Dose: 0 Radiation dose: Total exam DLP = 1037.86 mGy-cm. This CT exam was performed using one or more of the following dose reduction techniques: Automated exposure control, adjustment of the mA and/or kV according to patient size, and/or use of iterative reconstruction technique. FINDINGS: LOWER THORAX: Multiple small stable nodules seen both lung bases. LIVER: Mild diffusely diminished attenuation consistent with fatty infiltration. Normal size and contour. No mass. No biliary dilatation. GALLBLADDER AND BILE DUCTS: Unremarkable. PANCREAS: Unremarkable. No gross lesion or ductal dilatation. SPLEEN: Unremarkable. ADRENALS: Unremarkable. No mass. KIDNEYS AND URETERS: Bilateral diffuse medullary calcifications. Increased right hydronephrosis compared to prior examination. Previously identified 5 mm calculus in proximal right ureter is no longer evident. There is periureteric stranding along the entire course of the right ureter. This is likely due to transit of right proximal ureteral calculus to bladder. No hydroureter. No perinephric fluid. Increased extent of right hydronephrosis is of uncertain significance. This may be due to residual edema at the level of previously identified calculus or may be the result of very recently relieved obstruction. VASCULATURE: Unremarkable. No aortic aneurysm. BOWEL: Scattered colonic diverticulae. No obstruction. APPENDIX: Normal appendix positively identified. PERITONEUM: Unremarkable. No free fluid. No free air. LYMPH NODES: Unremarkable. No enlarged lymph nodes. BLADDER: Unremarkable. No bladder calculus identified. REPRODUCTIVE: Normal postmenopausal uterus. BONES: No acute fracture. OTHER FINDINGS: None. IMPRESSION: Proximal right ureteral calculus seen on recent CT examination is no longer identified. There is increased right hydronephrosis without hydroureter. Significance uncertain. See discussion above. Extensive periureteric stranding noted. Bilateral renal medullary calcifications. Fatty liver.
[2016-07-30 15:12] LABS: CALCIUM 10.5 mg/dL (8.4-10.2)
[2016-07-30] MEDS ORDERED: cefTRIAXone (Rocephin) 1 gm Inj ONE (15:58)
--- NOTE | 2016-07-30 16:14 | ED PDOC ---
HPI: Back <Lele Rey - Last Filed: 07/30/16 16:33> <Cherelle Flower - Last Filed: 07/30/16 17:03> Time Seen by Provider: 07/30/16 13:33 Chief Complaint (Nursing): Back Pain Past Medical History Reviewed: Nursing Documentation Vital Signs: Last Vital Signs Temp 98 F 07/30/16 13:14 Pulse 74 07/30/16 13:14 Resp 22 07/30/16 13:14 BP 158/96 H 07/30/16 13:14 Pulse Ox 100 07/30/16 13:14 - Medical History PMH: Anxiety, Arthritis, Back Problems, Depression, Fibromyalgia, GERD, HIV, HTN , Hypercholesterolemia, Hyperthyroidism, Kidney Stones, Migraine, Chronic Kidney Disease, Rheumatoid Arthritis, Chronic Pain (cervical, lumbar) Denies: Asthma, COPD, Hypothyroidism - Surgical History Surgical History: - Family History Family History: States: Unknown Family Hx, [place] (Father had a heart attack >55yo) - Immunization History Hx Tetanus Toxoid Vaccination: Yes (current) Hx Influenza Vaccination: Yes (12/2013) Hx Pneumococcal Vaccination: No <Lele Rey - Last Filed: 07/30/16 16:33> Vital Signs: Last Vital Signs Temp 98 F 07/30/16 16:21 Pulse 74 07/30/16 16:21 Resp 22 07/30/16 16:21 BP 158/96 H 07/30/16 16:21 Pulse Ox 100 07/30/16 16:34 <Cherelle Flower - Last Filed: 07/30/16 17:03> - Home Medications Home Medications: Ambulatory Orders Medication Instructions Recorded Allopurinol [Zyloprim] 100 mg PO DAILY 06/26/16 Amitriptyline [Elavil] 50 mg PO HS 06/26/16 Gabapentin [Neurontin] 1,200 mg PO BID 06/26/16 Levothyroxine [Synthroid] 50 mcg PO DAILY 06/26/16 Loratadine [Allergy] 10 mg PO DAILY 06/26/16 Omeprazole 20 mg PO DAILY 06/26/16 Venlafaxine [Effexor XR] 225 mg PO DAILY 06/26/16 Furosemide [Lasix] 20 mg PO DAILY 07/17/16 Ibuprofen [Motrin] 600 mg PO Q8 PRN #21 tab 07/17/16 Multivitamin [Multi-Vitamin Daily] 1 tab PO DAILY 07/17/16 Ondansetron [Zofran Tab] 4 mg PO BID PRN 07/17/16 Oxycodone HCl/Acetaminophen 1 tab PO TID PRN 07/17/16 [Percocet 10-325 mg Tablet] Potassium Citrate [Urocit-K] 15 meq PO BID 07/17/16 Efavirenz [Sustiva] 600 mg PO HS 07/30/16 Folic Acid [Folic Acid] 400 mcg PO DAILY 07/30/16 LORazepam [Ativan] 0.5 mg PO BID 07/30/16 Lamivudine [Epivir] 150 mg PO DAILY 07/30/16 Raltegravir Potassium [Isentress] 400 mg PO BID 07/30/16 - Allergies Allergies/Adverse Reactions: Allergies Allergy/AdvReac Type Severity Reaction Status Date / Time No Known Allergies Allergy Verified 07/30/16 13:14 - Laboratory Results Result Diagrams: 07/30/16 14:38 07/30/16 14:38 - ECG O2 Sat by Pulse Oximetry: 100 <Lele Rey - Last Filed: 07/30/16 16:33> - Laboratory Results Result Diagrams: 07/30/16 14:38 07/30/16 14:38 - ECG O2 Sat by Pulse Oximetry: 100 - CT Scan/US abd and pelvis no contrast Other Rad Studies (CT/US): Read By Radiologist, Radiology Report Reviewed <Cherelle Flower - Last Filed: 07/30/16 17:03>
--- NOTE | 2016-07-30 16:58 | ED PDOC ---
HPI: Back Time Seen by Provider: 07/30/16 13:33 Chief Complaint (Nursing): Back Pain Chief Complaint (Provider): Right sided flank pain History Per: Patient History/Exam Limitations: no limitations Onset/Duration Of Symptoms: Hrs (2 hours) Current Symptoms Are (Timing): Constant Severity: Moderate Additional Complaint(s): 56 year old female with a pertinent medical history of kidney stones and HIV presents to the ED with complaints of right sided flank pain that started 2x hours ago. She reports that 1x week ago she had a urethral stent placed for a lithotripsy procedure to remove a right kidney stone. She had it removed earlier today and the pain started immediately after. She reports that she has had several episodes of vomiting and is able to urinate. She denies having a fever, chills, and diarrhea. PMD: [place] Jake, Dereje Monzon Urologist: Johana Barney MD Past Medical History Reviewed: Historical Data, Nursing Documentation, Vital Signs Vital Signs: Last Vital Signs Temp 98 F 07/30/16 16:21 Pulse 74 07/30/16 16:21 Resp 22 07/30/16 16:21 BP 158/96 H 07/30/16 16:21 Pulse Ox 100 07/30/16 16:41 - Medical History PMH: Anxiety, Arthritis, Back Problems, Depression, Fibromyalgia, GERD, HIV, HTN , Hypercholesterolemia, Hyperthyroidism, Kidney Stones, Migraine, Chronic Kidney Disease, Rheumatoid Arthritis, Chronic Pain (cervical, lumbar) Denies: Asthma, COPD, Hypothyroidism - Surgical History Surgical History: - Family History Family History: States: Unknown Family Hx, [place] (Father had a heart attack >55yo) - Social History Current smoker - smoking cessation education provided: No Alcohol: None Drugs: Denies - Immunization History Hx Tetanus Toxoid Vaccination: Yes (current) Hx Influenza Vaccination: Yes (12/2013) Hx Pneumococcal Vaccination: No - Home Medications Home Medications: Ambulatory Orders Medication Instructions Recorded Allopurinol [Zyloprim] 100 mg PO DAILY 06/26/16 Amitriptyline [Elavil] 50 mg PO HS 06/26/16 Gabapentin [Neurontin] 1,200 mg PO BID 06/26/16 Levothyroxine [Synthroid] 50 mcg PO DAILY 06/26/16 Loratadine [Allergy] 10 mg PO DAILY 06/26/16 Omeprazole 20 mg PO DAILY 06/26/16 Venlafaxine [Effexor XR] 225 mg PO DAILY 06/26/16 Furosemide [Lasix] 20 mg PO DAILY 07/17/16 Ibuprofen [Motrin] 600 mg PO Q8 PRN #21 tab 07/17/16 Multivitamin [Multi-Vitamin Daily] 1 tab PO DAILY 07/17/16 Ondansetron [Zofran Tab] 4 mg PO BID PRN 07/17/16 Oxycodone HCl/Acetaminophen 1 tab PO TID PRN 07/17/16 [Percocet 10-325 mg Tablet] Potassium Citrate [Urocit-K] 15 meq PO BID 07/17/16 Efavirenz [Sustiva] 600 mg PO HS 07/30/16 Folic Acid [Folic Acid] 400 mcg PO DAILY 07/30/16 LORazepam [Ativan] 0.5 mg PO BID 07/30/16 Lamivudine [Epivir] 150 mg PO DAILY 07/30/16 Raltegravir Potassium [Isentress] 400 mg PO BID 07/30/16 - Allergies Allergies/Adverse Reactions: Allergies Allergy/AdvReac Type Severity Reaction Status Date / Time No Known Allergies Allergy Verified 07/30/16 13:14 Review of Systems ROS Statement: Except As Marked, All Systems Reviewed And Found Negative Constitutional: Negative for: Fever, Chills Gastrointestinal: Positive for: Vomiting (2x episodes). Negative for: Abdominal Pain, Diarrhea Genitourinary Female: Negative for: Dysuria Musculoskeletal: Positive for: Back Pain (right sided flank pain) Physical Exam - Reviewed Nursing Documentation Reviewed: Yes Vital Signs Reviewed: Yes - Physical Exam Appears: Positive for: Non-toxic, Uncomfortable (very unomfortable), In Acute Distress (moderate painful distress) Head Exam: Positive for: ATRAUMATIC, NORMOCEPHALIC Skin: Positive for: Normal Color, Warm, Dry Cardiovascular/Chest: Positive for: Regular Rate, Rhythm Respiratory: Positive for: Normal Breath Sounds. Negative for: Respiratory Distress Gastrointestinal/Abdominal: Positive for: Normal Exam, Soft. Negative for: Tenderness Back: Positive for: R CVA Tenderness. Negative for: L CVA Tenderness Neurologic/Psych: Positive for: Alert, Oriented (3x) - Laboratory Results Result Diagrams: 07/31/16 06:53 07/31/16 06:53 - ECG O2 Sat by Pulse Oximetry: 100 (RA) Pulse Ox Interpretation: Normal - CT Scan/US abd and pelvis no contrast Other Rad Studies (CT/US): Read By Radiologist, Radiology Report Reviewed Medical Decision Making Medical Decision Makin:33 Initial impression: 56 year old female with right sided flank pain. Differential diagnoses include but are not limited to a renal colic, hydronephrosis, urinary tract infection, pyelonephritis, and urinary tract outflow obstruction. Initial plan: CT ab and pelvis w/o po or IV contrast BMP CBC morphine 4mg IVP morphine 4mg IVP rocephin 1gm sodium chloride .9% 100ml IVPB toradol 30mg IVP zofram 4mg IV blood culture urine culture urinalysis reevaluation 15:06 CT abdomen and pelvis w/o PO or IV contrast report read and reviewed by radiologist FINDINGS: LOWER THORAX: Multiple small stable nodules seen both lung bases. LIVER: Mild diffusely diminished attenuation consistent with fatty infiltration. Normal size and contour. No mass. No biliary dilatation. GALLBLADDER AND BILE DUCTS: Unremarkable. PANCREAS: Unremarkable. No gross lesion or ductal dilatation. SPLEEN: Unremarkable. ADRENALS: Unremarkable. No mass. KIDNEYS AND URETERS: Bilateral diffuse medullary calcifications. Increased right hydronephrosis compared to prior examination. Previously identified 5 mm calculus in proximal right ureter is no longer evident. There is periureteric stranding along the entire course of the right ureter. This is likely due to transit of right proximal ureteral calculus to bladder. No hydroureter. No perinephric fluid. Increased extent of right hydronephrosis is of uncertain significance. This may be due to residual edema at the level of previously identified calculus or may be the result of very recently relieved obstruction. VASCULATURE: Unremarkable. No aortic aneurysm. BOWEL: Scattered colonic diverticulae. No obstruction. APPENDIX: Normal appendix positively identified. PERITONEUM: Unremarkable. No free fluid. No free air. LYMPH NODES: Unremarkable. No enlarged lymph nodes. BLADDER: Unremarkable. No bladder calculus identified. REPRODUCTIVE: Normal postmenopausal uterus. BONES: No acute fracture. OTHER FINDINGS: None. IMPRESSION: Proximal right ureteral calculus seen on recent CT examination is no longer identified. There is increased right hydronephrosis without hydroureter. Significance uncertain. See discussion above. Extensive periureteric stranding noted. Bilateral renal medullary calcifications. Fatty liver. 15:[address] scans. Patient has improved but is in significant pain. Discussed case with family resident. Patient will be admitted to med-surg under Dr. Thien Sen for an intractable renal colic. Scribe Attestation: Documented by Carlene Pinon, acting as a scribe for Cherelle Flower MD . Provider Scribe Attestation: All medical record entries made by the Scribe were at my direction and personally dictated by me. I have reviewed the chart and agree that the record accurately reflects my personal performance of the history, physical exam, medical decision making, and the department course for this patient. I have also personally directed, reviewed, and agree with the discharge instructions and disposition. Disposition - Clinical Impression Clinical Impression: Back pain, Hydronephrosis, Renal colic, UTI (urinary tract infection) - Patient ED Disposition Is Patient to be Admitted: Yes Discussed With DrAline: Ru Guadalupe Doctor Will See Patient In The: ED Counseled Patient/Family Regarding: Studies Performed, Diagnosis - Disposition Disposition Time: 15:30 Condition: FAIR - Pt Status Changed To: Hospital Disposition Of: Inpatient - Admit Certification Admit to Inpatient:: After my assessment, the patient will require hospitalization for at least two midnights. This is because of the severity of symptoms shown, intensity of services needed, and/or the medical risk in this patient being treated as an outpatient. - POA Present On Arrival: Cath Associated UTI
--- NOTE | 2016-07-30 17:09 | CP.PCM.PN ---
Subjective - Date & Time of Evaluation Date of Evaluation: 07/30/16 Time of Evaluation: 16:00 - Subjective Subjective: This is a 56 y/o female with PMHx of ESBL E-Coli infection, HIV on HAART therapy , Migraine, Depression, Restless leg syndrome, Hypothyroidism, Nodule of Right lung, Polymyalgia, G6PD, bilateral and multiple Nephrolithiasis who presents to ED complaining of persistent, high intensity, no radiating, right sided flank pain that started around 2 hours ago, associated to tactile fever, nausea and two episodes of vomit. Patient reports that today she went to see her Urologist : Dr. Alvaro Barney for removal of stent at MD's office at 10 am, stent was placed after lithotripsy procedure one week ago. Patient states that she did not have immediate pain after stent removal, but hours later the pains started, and was unbearable and decided to come for evaluation. Denies chills, CP, urinary symptoms. PMD: Dr. Farias Urologist : Dr. Alvaro Barney PMHx: HIV on HAART therapy, Migraine, Depression, Restless leg syndrome, Hypothyroidism, Nodule of Right lung, Polymyalgia, G6PD, Bilateral Nephrolithiasis Allergies: NKDA SHx: 2 C-sections, Tubal ligation, Nephrolithiasis, Lipoma removal X 2 SocialHx: Former smoker/stopped in 1994, etoh: 1 glass of wine socially, denies recreational drugs Meds: Allopurinol, Amitriptyline, Efavirenz,Furosemide, Gabapentin, Ibuprofen, Lamivudine, Levothyroxine, Loratadine, Multivitamins, Raltegravir ED course: VS:Afebrile, HR: 74/min, BP: 158/96, RR: 22, 100 % in room air PE: mild tender to palpation of both flank, but mostly in right side, neg CVA CBC, BMP, UA, Blood Cx, Urine Cx, CT abd/pelvis Tx:Pain control with Toradol once, Morphine 4 mg IV x 2; Zofran IV once, Ceftriaxone IV stat once Objective - Vital Signs/Intake and Output Vital Signs (last 24 hours): Temp Pulse Resp BP Pulse Ox 98 F 74 22 158/96 H 100 07/30/16 16:21 07/30/16 16:21 07/30/16 16:21 07/30/16 16:21 07/30/16 16:32 - Medications Medications: Current Medications Allopurinol (Zyloprim) 100 mg PO DAILY [facility] Amitriptyline HCl (Elavil) 50 mg PO HS [facility] Dolutegravir Sodium (Tivicay) 50 mg PO DAILY [facility] Enoxaparin Sodium (Lovenox) 40 mg SC DAILY [facility] PRN Reason: Protocol Furosemide (Lasix) 20 mg PO DAILY [facility] Gabapentin (Neurontin) 600 mg PO TID [facility] Home Med (Emtricitabine/Tenofov Alafenam [Descovy 200-25 Mg Tablet]) 1 tab PO DAILY [facility] Home Med (Multivitamin [Multi-Vitamin Daily]) 1 tab PO DAILY [facility] Home Med (Omeprazole [Omeprazole]) 20 mg PO DAILY [facility] Ibuprofen (Motrin Tab) 600 mg PO Q8 PRN PRN Reason: Pain, moderate (4-7) Ketorolac Tromethamine (Toradol) 30 mg IVP Q6 PRN PRN Reason: Pain, Mild (1-3) Levothyroxine Sodium (Synthroid) 50 mcg PO DAILY@0630 [facility] Loratadine (Claritin) 10 mg PO DAILY [facility] Lorazepam (Ativan) 0.5 mg PO BID [facility] Morphine Sulfate (Morphine) 2 mg IVP Q6 PRN PRN Reason: Pain, severe (8-10) Ondansetron HCl (Zofran Inj) 4 mg IVP Q6 PRN PRN Reason: Nausea/Vomiting Oxybutynin Chloride (Ditropan Tab) 5 mg PO BID [facility] Oxycodone/Acetaminophen (Percocet 5/325 Mg Tab) 1 tab PO Q6 PRN PRN Reason: Pain, moderate (4-7) Stop: 08/02/16 22:01 Tamsulosin HCl (Flomax) 0.4 mg PO DAILY [facility] - Constitutional Appears: Non-toxic, No Acute Distress - Eye Exam Eye Exam: Normal appearance - ENT Exam ENT Exam: Mucous Membranes Moist - Respiratory Exam Respiratory Exam: Clear to Ausculation Bilateral, NORMAL BREATHING PATTERN. absent: Rales, Rhonchi, Wheezes, Respiratory Distress - Cardiovascular Exam Cardiovascular Exam: REGULAR RHYTHM, +S1, +S2 - GI/Abdominal Exam GI & Abdominal Exam: Soft, Normal Bowel Sounds. absent: Distended, Guarding, Rigid, Tenderness Additional comments: Protuberant that correlates with obesity - Back Exam Back Exam: NORMAL INSPECTION. absent: CVA tenderness (L), CVA tenderness (R), paraspinal tenderness Additional comments: Mild flank tenderness to palpation bilateral, but mostly in right side. No hematoma noted. - Neurological Exam Neurological Exam: Alert, Awake, Oriented x3 - Psychiatric Exam Psychiatric exam: Normal Affect, Normal Mood - Skin Skin Exam: Dry, Intact, Normal Color - Additional Findings Additional findings: Bilateral tender to palpation lymphadenopathy, 2 cm X 1 cm localized on right/ left lower back Assessment and Plan - Assessment and Plan (Free Text) Assessment: 56 y/o female with PMHx of ESBL E-Coli infection, HIV on HAART therapy, Migraine , Depression, Restless leg syndrome, Hypothyroidism, Nodule of Right lung, Polymyalgia, G6PD, Bilateral Nephrolithiasis who presents right flank pain, nausea and vomiting admitted to r/o Acute Pyelonephritis. Plan: Right Hydronephrosis s/p stent removal but can not r/o Pyelonephritis -Afebrile -Mild leukocytosis in CBC -Pain management: Toradol IV PRN , Percocet PO -Start Meropenem 500 mg IV Q12 hours -C/w Zofran 4 mg IV Q6 PRN -F/U CBC , Procalcitonin -F/U Blood culture, Urine Cx -UA: showed high number of RBC, and WBC with occ bacterias -ID consult appreciated, Dr. Callaway on board. F/U recommendations -Abdominal/Pelvis CT scan showed : Proximal right ureteral calculus seen on recent CT examination is no longer identified. There is increased right hydronephrosis without hydroureter. Significance uncertain. See discussion above. Extensive periureteric stranding noted. Bilateral renal medullary calcifications. Fatty liver. HIV on HAART, asymptomatic and without AIDS -c/w with home medications -VL (06/07): undetectable from previous admission, will verify in AM -CD4 (06/07): 774 from previous admission, will verify in AM -c/w Raltegravir 400 mg BID -c/wEpivir 150 daily -c/w Sustiva 600 daily Hypothyroidism -Asymptomatic -C/w Levothyroxine 50 mcg daily -TSH 0.69, FT4 1.04 from previous admission, will verify in AM Peripheral Neuropathy -Stable -Gabapentin 600mg PO TID Depression Amitriptyline 50 mg PO Uncontrolled HTN -Could be secondary to pain -will continue monitoring DVT Prophylaxis -Lovenox 40 mg SC daily CKD Stage 3 GFR: 56 BUN/Cr: 16/1.2 K +WNL Lasix 20mg PO Daily
--- NOTE | 2016-07-30 17:44 | CON ---
DATE: 07/30/2016 HISTORY OF PRESENT ILLNESS: The patient is a 56-year-old female who had recent removal of a right ureteral stone c stent placement. She had the stent removed yesterday and today is complaining of nausea, vomiting, fever and chills and severe pain. The patient also has a past medical history of hypertension, fibromyalgia, depression, GERD, HIV disease, hypercholesterolemia, hypothyroidism. Also, history of renal colic, multiple times, especially since she had started on in the late s on Crixivan, which is an antiretroviral known to produce renal calculi. States she has had at least possibly 6 or 7 since that time. At present, she is not receiving any ARVs that are known to cause nephrolithiasis. She is presently on Epivir, Sustiva and Isentress. She came to the Emergency Room with the above symptoms and was evaluated there and admission was advised. The patient was seen in the Emergency Room by myself with the family practice residents. PHYSICAL EXAMINATION: GENERAL: He is alert, cooperative, and oriented to time and place. HEENT: Within normal limits. NECK: Supple. LUNGS: Clear. HEART: Regular sinus rhythm. ABDOMEN: Soft, positive bowel sounds, but she has right lower quadrant tenderness and right CVA tenderness. EXTREMITIES: Within normal limits. ALLERGIES: APPARENTLY SHE IS ALLERGIC TO SULFA, GENTAMICIN, IMIPENEM WHICH IS A CARBAPENEM, AND TIGECYCLINE. LABORATORIES: Previous micro shows a urine culture back in June with ESBL E. coli with sensitivities only to Bactrim. White count is 11.2, hemoglobin 13, platelets 289, neutrophils are 70.6 and the lymphs are 22.7. Creatinine is 1.2 , GFR is 46. Calcium is high at 10.5. Random glucose is 91. Urine showed 160 RBCs, WBCs 28, bacteria is present. CT scan of the abdomen shows a proximal right ureteral calculus which was seen on recent CT scan is no longer identified. There is increased right hydronephrosis without hydroureter. There is also periureteric stranding and bilateral renal medullary calcification. She also has a fatty liver. IMPRESSION: Possible urinary tract infection, urosepsis, fever may be due to manipulation of the ureter and removal of stent yesterday. At present time, would give her meropenem 500 mg IV piggyback q. 12, pending results of cultures and also response. Daniel Blanco MD cc: [id number] TT: 07/30/2016 17:44:07 Confirmation # [id number] Dictation # [id number] MTDD
[2016-07-30] MEDS ORDERED: Oxycodone/Acetaminophen 5/325 mg Tab ONE (20:00)
[2016-07-30] MEDS: Oxycodone/Acetaminophen 5/325 mg Tab PO PRN (20:09)
[2016-07-30] MEDS: Meropenem 500 MG in Sodium Chloride 0.9% 100 ML IVPB SCH (22:20)
[2016-07-31] MEDS: Levothyroxine 50 MCG TAB PO SCH (05:53)
[2016-07-31 07:09] LABS: HEMATOCRIT 37.7 % (34.0-47.0); MEAN CELL VOLUME 95.4 fl (81.0-99.0); MEAN CORPUSCULAR HEMOGLOBIN 30.9 pg (27.0-31.0); MEAN CORPUSCULAR HGB CONC 32.4 g/dL (33.0-37.0); RED CELL DISTRIBUTION WIDTH 14.5 % (11.5-14.5); WHITE BLOOD COUNT 7.4 K/uL (4.8-10.8)
[2016-07-31 07:10] LABS: PARTIAL THROMBOPLASTIN TIME 23.3 SECONDS (23.3-32.5)
[2016-07-31 07:19] LABS: CALCIUM 9.7 mg/dL (8.4-10.2)
[2016-07-31 07:24] LABS: POTASSIUM 4.7 MMOL/L (3.6-5.0)
[2016-07-31] MEDS ORDERED: Patient's Own Med (Emtricitabine/Tenofov Alafenam [Descovy 200-25 Mg Tablet] 1 TAB) PO SCH (09:00)
[2016-07-31] MEDS: Meropenem 500 MG in Sodium Chloride 0.9% 100 ML IVPB SCH ×2 (09:37→21:10)
[2016-07-31] MEDS: Multivitamin With Minerals Tab PO SCH (09:38)
[2016-07-31] MEDS: Pantoprazole 40 mg EC Tab PO SCH (09:38)
--- NOTE | 2016-07-31 13:34 | CP.PCM.PN ---
Subjective - Date & Time of Evaluation Date of Evaluation: 07/31/16 Time of Evaluation: 07:55 - Subjective Subjective: 56 y/o F with extensive PMHx that includes HIV, multiple/bilateral Nephrolithiasis admitted with right hydranephrosis to r/o Pyelonephritis being follow up today right flank pain, and urine culture. Patient was seen and examined at bedside this morning. Patient is still complaining of right flank pain , intermittent, as high as 6/10, however the pain has improved since yesterday. Denies chills, nausea, vomiting, CP, SOB, abdominal pain or other complains. Objective - Vital Signs/Intake and Output Vital Signs (last 24 hours): Temp Pulse Resp BP Pulse Ox 97.7 F 64 20 148/83 98 07/31/16 08:06 07/31/16 08:06 07/31/16 08:06 07/31/16 08:06 07/31/16 08:06 - Medications Medications: Current Medications Allopurinol (Zyloprim) 100 mg PO DAILY [facility] Last Admin: 07/31/16 09:39 Dose: 100 mg Amitriptyline HCl (Elavil) 50 mg PO HS [facility] Last Admin: 07/30/16 22:19 Dose: 50 mg Efavirenz (Sustiva) 600 mg PO HS [facility] Last Admin: 07/30/16 22:19 Dose: 600 mg Enoxaparin Sodium (Lovenox) 40 mg SC DAILY [facility] PRN Reason: Protocol Furosemide (Lasix) 20 mg PO DAILY [facility] Last Admin: 07/31/16 09:36 Dose: Not Given Gabapentin (Neurontin) 600 mg PO TID [facility] Last Admin: 07/31/16 09:38 Dose: 600 mg Meropenem 500 mg/ Sodium (Chloride) 100 mls @ 100 mls/hr IVPB Q12 [facility] Last Admin: 07/31/16 09:37 Dose: 100 mls/hr Ibuprofen (Motrin Tab) 600 mg PO Q8 PRN PRN Reason: Pain, moderate (4-7) Ketorolac Tromethamine (Toradol) 30 mg IVP Q6 PRN PRN Reason: Pain, Mild (1-3) Lamivudine (Epivir) 150 mg PO DAILY [facility] Last Admin: 07/31/16 09:35 Dose: 150 mg Levothyroxine Sodium (Synthroid) 50 mcg PO DAILY@0630 [facility] Last Admin: 07/31/16 05:53 Dose: 50 mcg Loratadine (Claritin) 10 mg PO DAILY [facility] Last Admin: 07/31/16 09:32 Dose: Not Given Lorazepam (Ativan) 0.5 mg PO BID [facility] Last Admin: 07/31/16 09:43 Dose: 0.5 mg Morphine Sulfate (Morphine) 2 mg IVP Q6 PRN PRN Reason: Pain, severe (8-10) Last Admin: 07/30/16 22:14 Dose: 2 mg Multivitamins/Minerals (Therapeutic-M Tab) 1 tab PO DAILY [facility] Last Admin: 07/31/16 09:38 Dose: 1 tab Ondansetron HCl (Zofran Inj) 4 mg IVP Q6 PRN PRN Reason: Nausea/Vomiting Last Admin: 07/30/16 18:09 Dose: 4 mg Oxycodone/Acetaminophen (Percocet 5/325 Mg Tab) 1 tab PO Q6 PRN PRN Reason: Pain, moderate (4-7) Stop: 08/02/16 22:01 Last Admin: 07/30/16 20:09 Dose: 1 tab Pantoprazole Sodium (Protonix Ec Tab) 40 mg PO DAILY [facility] Last Admin: 07/31/16 09:38 Dose: 40 mg Raltegravir (Isentress) 400 mg PO BID [facility] Last Admin: 07/31/16 09:36 Dose: 400 mg Tamsulosin HCl (Flomax) 0.4 mg PO DAILY [facility] - Labs Labs: 07/31/16 06:53 07/31/16 06:53 PT 10.8 SECONDS (9.6-11.2) 07/31/16 05:30 INR 1.04 (0.92-1.08) 07/31/16 05:30 APTT 23.3 SECONDS (23.3-32.5) 07/31/16 05:30 - Constitutional Appears: Non-toxic, No Acute Distress - Eye Exam Eye Exam: Normal appearance - ENT Exam ENT Exam: Mucous Membranes Moist - Respiratory Exam Respiratory Exam: Clear to Ausculation Bilateral, NORMAL BREATHING PATTERN - Cardiovascular Exam Cardiovascular Exam: REGULAR RHYTHM, +S1, +S2 - Extremities Exam Extremities Exam: Normal Inspection. absent: Calf Tenderness, Pedal Edema - Back Exam Back Exam: NORMAL INSPECTION. absent: CVA tenderness (L), CVA tenderness (R) - Neurological Exam Neurological Exam: Alert, Awake, Oriented x3 - Skin Skin Exam: Dry, Intact, Normal Color Assessment and Plan - Assessment and Plan (Free Text) Assessment: 56 y/o female with PMHx of ESBL E-Coli infection, HIV on HAART therapy, Migraine , Depression, Restless leg syndrome, Hypothyroidism, Nodule of Right lung, Polymyalgia, G6PD, Bilateral Nephrolithiasis who presents right flank pain, nausea and vomiting admitted to r/o Acute Pyelonephritis being f/u for right flank pain and urine culture. Plan: Right Hydronephrosis s/p stent removal but can not r/o Pyelonephritis -Afebrile, flank pain improving -Resolved mild leukocytosis noted in admission CBC -Pain management: Toradol IV PRN , Morphine 2 mg IV PRN based on pain scale -c/w Meropenem 500 mg IV Q12 hours -Start Fomax 0.4 mg PO daily -C/w Zofran 4 mg IV Q6 PRN -F/U Procalcitonin -F/U Blood culture, Urine Cx -UA: showed high number of RBC, and WBC with occ bacterias -ID consult appreciated, Dr. Callaway on board. F/U recommendations -Patient's Urologist, Dr. Alvaro Barney, was contacted, recommended start Flomax. F/U recommendations. -Abdominal/Pelvis CT scan showed : Proximal right ureteral calculus seen on recent CT examination is no longer identified. There is increased right hydronephrosis without hydroureter. Significance uncertain. See discussion above. Extensive periureteric stranding noted. Bilateral renal medullary calcifications. Fatty liver. HIV on HAART, asymptomatic and without AIDS -c/w with home medications -VL (06/07): undetectable from previous admission, will verify -CD4 (06/07): 774 from previous admission, will verify -c/w Raltegravir 400 mg BID -c/w Epivir 150 daily -c/w Sustiva 600 daily Hypothyroidism -Asymptomatic -C/w Levothyroxine 50 mcg daily -TSH 0.69, FT4 1.04 from previous admission Peripheral Neuropathy -Stable -Gabapentin 600mg PO TID Depression Amitriptyline 50 mg PO Uncontrolled HTN -Could be secondary to pain -will continue monitoring DVT Prophylaxis -Lovenox 40 mg SC daily CKD Stage 3 GFR: 56 BUN/Cr: 1.2 K +WNL Lasix 20mg PO Daily
[2016-07-31] MEDS: Enoxaparin 40 mg Syringe SC SCH (14:58)
[2016-07-31] MEDS: Oxycodone/Acetaminophen 5/325 mg Tab PO PRN (18:15)
[2016-08-01 01:45] VITALS: TEMP 98.3
[2016-08-01] MEDS: Levothyroxine 50 MCG TAB PO SCH (06:09)
[2016-08-01 08:08] LABS: BASO % 0.7 % (0.0-2.0); EOS # 0.3 K/uL (0.0-0.7); EOS % 4.8 % (0.0-4.0); LYMPH # 1.3 K/uL (1.0-4.3); LYMPH % 18.9 % (20.0-40.0); MEAN CELL VOLUME 94.9 fl (81.0-99.0); MEAN CORPUSCULAR HGB CONC 33.7 g/dL (33.0-37.0); MEAN PLATELET VOLUME 7.5 fl (7.2-11.7); MONO # 0.5 K/uL (0.0-0.8); MONO % 7.5 % (0.0-10.0); NEUT # 4.8 K/uL (1.8-7.0); NEUT % 68.1 % (50.0-75.0); NRBC % 0.2 % (0.0-0.0); RED CELL DISTRIBUTION WIDTH 14.2 % (11.5-14.5)
[2016-08-01 08:53] VITALS: BP 137/76; RESP 20
[2016-08-01] MEDS: Enoxaparin 40 mg Syringe SC SCH (09:26)
[2016-08-01] MEDS: Meropenem 500 MG in Sodium Chloride 0.9% 100 ML IVPB SCH (09:26)
[2016-08-01] MEDS: Multivitamin With Minerals Tab PO SCH (09:27)
[2016-08-01] MEDS: Pantoprazole 40 mg EC Tab PO SCH (09:27)
[2016-08-01] MEDS: Oxycodone/Acetaminophen 5/325 mg Tab PO PRN (09:35)
[2016-08-01 09:37] VITALS: PULSE 86; O2SAT 98
--- NOTE | 2016-08-01 19:39 | CP.PCM.DIS ---
Provider - Provider Date of Admission: 07/30/16 15:31 Attending physician: Mary Kate Bowers MD Primary care physician: Dereje Farias MD Time Spent in preparation of Discharge (in minutes): 30 Diagnosis - Discharge Diagnosis (1) Hydronephrosis Status: Acute Priority: High Comment: Improving. F/U with Urologist, Dr. Alvaro Barney as outpatient (2) HIV (human immunodeficiency virus infection) Status: Chronic Priority: High Comment: Asymptomatic without AIDS. (3) Hypothyroidism Status: Acute Priority: Medium Comment: Asymptomatic. Hospital Course - Lab Results Lab Results: Micro Results 07/30/16 16:00 Blood-Venous Blood Culture - Preliminary NO GROWTH AFTER 48 HOURS 07/30/16 16:00 Urine,Random Urine Culture - Final No Growth (<1,000 CFU/ML) Most Recent Lab Values WBC 7.0 K/uL (4.8-10.8) 08/01/16 07:45 RBC 3.79 Mil/uL (3.80-5.20) L 08/01/16 07:45 Hgb 12.1 g/dL (12.0-16.0) 08/01/16 07:45 Hct 36.0 % (34.0-47.0) 08/01/16 07:45 MCV 94.9 fl (81.0-99.0) 08/01/16 07:45 MCH 32.0 pg (27.0-31.0) H 08/01/16 07:45 MCHC 33.7 g/dL (33.0-37.0) 08/01/16 07:45 RDW 14.2 % (11.5-14.5) 08/01/16 07:45 Plt Count 239 K/uL (130-400) 08/01/16 07:45 MPV 7.5 fl (7.2-11.7) 08/01/16 07:45 Neut % (Auto) 68.1 % (50.0-75.0) 08/01/16 07:45 Lymph % (Auto) 18.9 % (20.0-40.0) L 08/01/16 07:45 [place] % (Auto) 7.5 % (0.0-10.0) 08/01/16 07:45 Eos % (Auto) 4.8 % (0.0-4.0) H 08/01/16 07:45 Baso % (Auto) 0.7 % (0.0-2.0) 08/01/16 07:45 Neut # 4.8 K/uL (1.8-7.0) 08/01/16 07:45 Lymph # 1.3 K/uL (1.0-4.3) 08/01/16 07:45 [place] # 0.5 K/uL (0.0-0.8) 08/01/16 07:45 Eos # 0.3 K/uL (0.0-0.7) 08/01/16 07:45 Baso # 0.0 K/uL (0.0-0.2) 08/01/16 07:45 PT 10.8 SECONDS (9.6-11.2) 07/31/16 05:30 INR 1.04 (0.92-1.08) 07/31/16 05:30 APTT 23.3 SECONDS (23.3-32.5) 07/31/16 05:30 Sodium 140 mmol/l (132-148) 07/31/16 06:53 Potassium 4.7 MMOL/L (3.6-5.0) 07/31/16 06:53 Chloride 104 mmol/L (98-107) 07/31/16 06:53 Carbon Dioxide 26 mmol/L (22-30) 07/31/16 06:53 Anion Gap 15 (10-20) 07/31/16 06:53 BUN 16 mg/dl (7-17) 07/31/16 06:53 Creatinine 1.2 mg/dL (0.7-1.2) 07/31/16 06:53 Est GFR ( Amer) 56 07/31/16 06:53 Est GFR (Non-Af Amer) 46 07/31/16 06:53 Random Glucose 108 mg/dL (65-105) H 07/31/16 06:53 Lactic Acid 1.1 MMOL/L (0.7-2.1) 07/30/16 17:55 Calcium 9.7 mg/dL (8.4-10.2) 07/31/16 06:53 Procalcitonin < 0.05 NG/ML (0.19-0.49) L 07/31/16 05:30 Urine Color Yellow (YELLOW) 07/30/16 14:17 Urine Clarity Clear (Clear) 07/30/16 14:17 Urine pH 8.0 (5.0-8.0) 07/30/16 14:17 Ur Specific [place] 1.010 (1.003-1.030) 07/30/16 14:17 Urine Protein 100 mg/dL (NEGATIVE) 07/30/16 14: Urine Glucose (UA) Neg mg/dL (Normal) 07/30/16 14: Urine Ketones Negative mg/dL (NEGATIVE) 07/30/16 14: Urine Blood Moderate (NEGATIVE) 07/30/16 14: Urine Nitrate Negative (NEGATIVE) 07/30/16 14: Urine Bilirubin Negative (NEGATIVE) 07/30/16 14: Urine Urobilinogen 0.2-1.0 mg/dL (0.2-1.0) 07/30/16 14:17 Ur Leukocyte Esterase Small Emely/uL (Negative) 07/30/16 14: Urine RBC (Auto) 160 /hpf (0-3) H 07/30/16 14:17 Urine Microscopic WBC 28 /hpf (0-5) H 07/30/16 14: Urine Bacteria Occ (<OCC) H 07/30/16 14:17 - Hospital Course Hospital Course: This is a 56 y/o female with PMHx of ESBL E-Coli infection, HIV on HAART therapy , Migraine, Depression, Restless leg syndrome, Hypothyroidism, Nodule of Right lung, Polymyalgia, G6PD, bilateral and multiple Nephrolithiasis who presented to ED complaining of right sided flank pain following removal of a stent at her Urologist's office who was admitted with Right Hydronephrosis to r/o acute pyelonephritis. Infectious disease was consulted due to patient's previous history on ESBL E-Coli, and recurrent Pyelonephritis. During admission patient was managed with pain control, and IV antibiotic therapy. Urine culture's final report showed no growth, and blood culture no growth so far. Patient's Urologist, Dr. Alvaro Barney, was contacted and recommendations for starting Flomax PO was given. Patient was seen and examined at bedside this morning. Patient reported mild right flank pain well controlled with pain medication, and denied any other complain at this evaluation. Patient is stable to be discharge home in 5 days course of oral Ceftin as ID recommendation. Will follow up as outpatient with urologist and PMD, Dr. Farias at [facility]. We will follow blood culture after discharge and will call and inform patient if positive results are received. Home medications: Allopurinol 100 mg daily Elavil 50 mg HS Efavirez 600 mg HS Folic acid 0.4 mg daily Furosemide 20 mg daily Gabapentin 1200 mg bid Ibuprofen 600 mg Q8 PRN Epivir 150 mg daily synthroid 50 mcg daily loratadine 10 mg daily lorazepam 0.5 mg bid multivitamin 1 tab daily omeprazole 20 mg daily Percocet 1 tab TID PRN Potassium Citrate 15 meq bid raltegravir 400 mg Bid tamsulosin 0.4 mg daily venlafaxine 225 mg daily Ceftin 500 mg daily x 5 days - Date & Time of H&P Date of H&P: 07/30/16 Time of H&P: 16:30 Discharge Exam - ENT Exam ENT Exam: Mucous Membranes Moist - Respiratory Exam Respiratory Exam: Clear to PA & Lateral, NORMAL BREATHING PATTERN - Cardiovascular Exam Cardiovascular Exam: REGULAR RHYTHM, +S1, +S2 - GI/Abdominal Exam GI & Abdominal Exam: Normal Bowel Sounds, Soft. absent: Distended, Rigid, Tenderness - Extremities Exam Extremities exam: normal inspection Additional comments: No edema in lower extremities noted. No calf tenderness, Shamar's sign negative - Neurological Exam Neurological exam: Alert, Oriented x3 - Skin Skin Exam: Dry, Intact, Normal Color Discharge Plan - Discharge Medications Prescriptions: Tamsulosin [Flomax] 0.4 mg PO DAILY #30 cap - Follow Up Plan Condition: FAIR Disposition: HOME/ ROUTINE Instructions: Urinary Tract Infection in Women (DC) Additional Instructions: Take Ceftin 500 mg PO daily for 5 days Referrals: Dereje Farias MD [Primary Care Provider] -
[2016-08-02 23:12] LABS: CALCIUM 9.6 mg/dL (8.6-10.4)
== END 2016-08-01 14:53 | disposition home or self-care (01) | DRG 321 ==
LOC: H.ER 13:11 → H.ERHOLD 15:31 → H.MEDSURG1 20:56
PROVIDERS: ADMIT Family Medicine Geriatric Medicine; ATTEND Family Medicine Geriatric Medicine
DX: N13.6 Pyonephrosis (principal); N18.3 Chronic kidney disease, stage 3 (moderate); G62.9 Polyneuropathy, unspecified; I12.9 Hypertensive chronic kidney disease with stage 1 through stage 4 chronic kidney disease, or unspecified chronic kidney disease; Z21 Asymptomatic human immunodeficiency virus [HIV] infection status; M06.9 Rheumatoid arthritis, unspecified; M79.7 Fibromyalgia; K21.9 Gastro-esophageal reflux disease without esophagitis; G25.81 Restless legs syndrome; G89.29 Other chronic pain; E78.00 Pure hypercholesterolemia, unspecified; E03.9 Hypothyroidism, unspecified; M35.3 Polymyalgia rheumatica; R91.1 Solitary pulmonary nodule; F32.9 Major depressive disorder, single episode, unspecified; Z88.1 Allergy status to other antibiotic agents; Z88.2 Allergy status to sulfonamides; F41.9 Anxiety disorder, unspecified

== ENCOUNTER 2016-10-20 21:12 | Emergency (ER) | payer MEDICAID ==
[2016-10-20 21:12] VITALS: BMI 32.4
[2016-10-20 21:54] VITALS: BP 124/79; RESP 16; TEMP 99; O2SAT 100
[2016-10-20] MEDS ORDERED: TDAP Vaccine 0.5 mL Syr IM ONE (22:05)
--- NOTE | 2016-10-20 22:09 | ED PDOC ---
HPI: General Adult Time Seen by Provider: 10/20/16 21:58 Chief Complaint (Nursing): Lower Extremity Problem/Injury History Per: Patient Additional Complaint(s): Pt. states 1 week ago she slipped and fell landing directly on the R knee. Since then she's had localized pain and swelling to the inner portion of the R knee. Today pain became worse when she stood up from a seated position. Denies new trauma, numbness, tingling, other injury, head injury. Past Medical History Reviewed: Historical Data, Nursing Documentation, Vital Signs Vital Signs: Last Vital Signs Temp 99.0 F 10/20/16 21:50 Pulse 114 H 10/20/16 21:50 Resp 16 10/20/16 21:50 BP 124/79 10/20/16 21:50 Pulse Ox 100 10/20/16 22:11 - Medical History PMH: Anxiety, Arthritis, Back Problems, Depression, Fibromyalgia, GERD, HIV, HTN , Hypercholesterolemia, Hyperthyroidism, Kidney Stones, Migraine, Chronic Kidney Disease, Rheumatoid Arthritis, Chronic Pain (cervical, lumbar) Denies: Asthma, COPD, Hypothyroidism - Surgical History Surgical History: - Family History Family History: States: [place] (Father had a heart attack >55yo) - Immunization History Hx Tetanus Toxoid Vaccination: Yes (current) Hx Influenza Vaccination: Yes (12/2013) Hx Pneumococcal Vaccination: No - Home Medications Home Medications: Ambulatory Orders Medication Instructions Recorded Allopurinol [Zyloprim] 100 mg PO DAILY 06/26/16 Amitriptyline [Elavil] 50 mg PO HS 06/26/16 Gabapentin [Neurontin] 1,200 mg PO BID 06/26/16 Levothyroxine [Synthroid] 50 mcg PO DAILY 06/26/16 Loratadine [Allergy] 10 mg PO DAILY 06/26/16 Omeprazole 20 mg PO DAILY 06/26/16 Venlafaxine [Effexor XR] 225 mg PO DAILY 06/26/16 Furosemide [Lasix] 20 mg PO DAILY 07/17/16 Ibuprofen [Motrin Tab] 600 mg PO Q8 PRN #21 tab 07/17/16 Multivitamin [Multi-Vitamin Daily] 1 tab PO DAILY 07/17/16 Oxycodone HCl/Acetaminophen 1 tab PO TID PRN 07/17/16 [Percocet 10-325 mg Tablet] Potassium Citrate [Urocit-K] 15 meq PO BID 07/17/16 Efavirenz [Sustiva] 600 mg PO HS 07/30/16 Folic Acid 400 mcg PO DAILY 07/30/16 LORazepam [Ativan] 0.5 mg PO BID 07/30/16 Lamivudine [Epivir] 150 mg PO DAILY 07/30/16 Raltegravir Potassium [Isentress] 400 mg PO BID 07/30/16 Tamsulosin [Flomax] 0.4 mg PO DAILY #30 cap 08/01/16 Naproxen [Naprosyn] 500 mg PO BID PRN #30 tab 10/20/16 - Allergies Allergies/Adverse Reactions: Allergies Allergy/AdvReac Type Severity Reaction Status Date / Time No Known Allergies Allergy Verified 07/30/16 13:14 Review of Systems ROS Statement: Except As Marked, All Systems Reviewed And Found Negative Physical Exam - Physical Exam Appears: Positive for: Well, Non-toxic, No Acute Distress Skin: Positive for: Normal Color, Warm. Negative for: Rash Extremity: Positive for: Other (R lower extremity: medial surface of R knee with mild tenderness and swelling without deformity, warmth, erythema; R anterior knee with superficial healing abrasion noted). Negative for: Calf Tenderness (b/l) - ECG O2 Sat by Pulse Oximetry: 100 - Radiology X-Ray: Interpreted by Me (R knee xray) X-Ray Interpretation: No Acute Disease - Progress ED Course And Treament: Toradol 15mg IM, R knee x-ray, tetanus prophylaxis ordered. R knee immobilized in knee immobilizer applied by RN. Crutches provided along with crutch walking instructions. Disposition - Clinical Impression Clinical Impression: Knee sprain - Patient ED Disposition Is Patient to be Admitted: No - Disposition Referrals: [facility] [Outside] Robert Faye MD [Staff Provider] - Disposition: Routine/Home Disposition Time: 22:38 Condition: STABLE Prescriptions: Naproxen [Naprosyn] 500 mg PO BID PRN #30 tab PRN Reason: Pain Instructions: Knee Sprain (ED), Knee Immobilizer (ED), Crutch Instructions (ED) Forms: [employer] (Eth[place]ian) Print Language: [id number]
[2016-10-20 23:38] VITALS: PULSE 94
--- NOTE | 2016-10-21 15:05 | RAD ---
PROCEDURE: Right Knee Radiographs. HISTORY: trauma COMPARISON: Right knee radiographs dated 11/17/2015. FINDINGS: BONES: Normal. No fracture. JOINTS: Mild medial femorotibial compartment joint space narrowing is again appreciated combined with degenerative joint disease. JOINT EFFUSION: A mild suprapatellar bursa effusion is again identified. OTHER FINDINGS: None. IMPRESSION: Limited degenerate joint disease again appreciated within small suprapatellar bursa effusion. No acute fracture or dislocation.
== END 2016-10-20 23:37 | disposition home or self-care (01) ==
LOC: H.ER 21:12
DX: S83.91XA Sprain of unspecified site of right knee, initial encounter (principal); W19.XXXA Unspecified fall, initial encounter; I12.9 Hypertensive chronic kidney disease with stage 1 through stage 4 chronic kidney disease, or unspecified chronic kidney disease; M17.11 Unilateral primary osteoarthritis, right knee; N18.9 Chronic kidney disease, unspecified; Z86.59 Personal history of other mental and behavioral disorders

== ENCOUNTER 2016-12-14 15:55 | Emergency (ER) | payer MEDICAID ==
[2016-12-14 15:55] VITALS: BMI 32.4
[2016-12-14 16:00] VITALS: TEMP 98.7
[2016-12-14] MEDS ORDERED: DiphenhydrAMINE 50 mg/ml Inj IVP STA (16:36)
[2016-12-14] MEDS ORDERED: DiphenhydrAMINE 50 mg/ml Inj ONE (16:45)
--- NOTE | 2016-12-14 16:51 | ED PDOC ---
HPI: Headache Time Seen by Provider: 12/14/16 16:04 Chief Complaint (Nursing): Headache Chief Complaint (Provider): Headache History Per: Patient History/Exam Limitations: no limitations Onset/Duration Of Symptoms: Days (5 days ago), Gradual Current Symptoms Are (Timing): Still Present Associated Symptoms: denies: Blurred Vision, Nausea, Vomiting, Extremity Weakness Additional Complaint(s): Patient is a 56 y/o female, with past medicl history kidney stones, chronic ack pain, hypothyroidism, HIV (last T-cell count was 500) and borderline hypertension (unmedicated) presents to the ED complaining of a headache x5 days. She describes the pain as gradual onset and notes that it is localized to the top and back of her head, denies a thunderclap headache. Patient reports that she initially considered it a typical migraine headache and took Tylenol with no relief. She adds that the pain is increasing and when checked her blood pressure she noticed a high blood pressure recording. Additionally, she notes pressure in both eyes, but denies nausea, vomiting, blurry vision, focal weakness, or abnormalities in gait or speech. PCP: [facility] Past Medical History Reviewed: Historical Data, Nursing Documentation, Vital Signs Vital Signs: Last Vital Signs Temp 98.7 F 12/14/16 15:57 Pulse 98 H 12/14/16 15:57 Resp 16 12/14/16 15:57 BP 170/110 H 12/14/16 15:57 Pulse Ox 99 12/14/16 15:57 - Medical History PMH: Anxiety, Arthritis, Back Problems, Depression, Fibromyalgia, GERD, HIV, HTN , Hypercholesterolemia, Hyperthyroidism, Kidney Stones, Migraine, Chronic Kidney Disease, Rheumatoid Arthritis, Chronic Pain (cervical, lumbar) Denies: Asthma, COPD, Hypothyroidism - Surgical History Surgical History: (2) Other surgeries: tubal ligation, neck surgery, multiple lipoma resections - Family History Family History: States: [place] (Father had a heart attack >55yo), Hypertension, Other Other Family History: Cancer - Social History Current smoker - smoking cessation education provided: No Alcohol: None Drugs: Denies - Immunization History Hx Tetanus Toxoid Vaccination: Yes (current) Hx Influenza Vaccination: Yes (12/2013) Hx Pneumococcal Vaccination: No - Home Medications Home Medications: Ambulatory Orders Medication Instructions Recorded Allopurinol [Zyloprim] 100 mg PO DAILY 06/26/16 Amitriptyline [Elavil] 50 mg PO HS 06/26/16 Gabapentin [Neurontin] 1,200 mg PO BID 06/26/16 Levothyroxine [Synthroid] 50 mcg PO DAILY 06/26/16 Loratadine [Allergy] 10 mg PO DAILY 06/26/16 Omeprazole 20 mg PO DAILY 06/26/16 Venlafaxine [Effexor XR] 225 mg PO DAILY 06/26/16 Furosemide [Lasix] 20 mg PO DAILY 07/17/16 Ibuprofen [Motrin Tab] 600 mg PO Q8 PRN #21 tab 07/17/16 Multivitamin [Multi-Vitamin Daily] 1 tab PO DAILY 07/17/16 Oxycodone HCl/Acetaminophen 1 tab PO TID PRN 07/17/16 [Percocet 10-325 mg Tablet] Potassium Citrate [Urocit-K] 15 meq PO BID 07/17/16 Efavirenz [Sustiva] 600 mg PO HS 07/30/16 Folic Acid 400 mcg PO DAILY 07/30/16 LORazepam [Ativan] 0.5 mg PO BID 07/30/16 Lamivudine [Epivir] 150 mg PO DAILY 07/30/16 Raltegravir Potassium [Isentress] 400 mg PO BID 07/30/16 Tamsulosin [Flomax] 0.4 mg PO DAILY #30 cap 08/01/16 Naproxen [Naprosyn] 500 mg PO BID PRN #30 tab 10/20/16 Sulfamethoxazole/Trimethoprim 1 tab PO BID #14 tab 12/14/16 [Bactrim DS 800 mg-160 mg] hydroCHLOROthiazide [Hydrodiuril] 25 mg PO DAILY #14 tab 12/14/16 - Allergies Allergies/Adverse Reactions: Allergies Allergy/AdvReac Type Severity Reaction Status Date / Time No Known Allergies Allergy Verified 07/30/16 13:14 Review of Systems ROS Statement: Except As Marked, All Systems Reviewed And Found Negative Eyes: Positive for: Other (pressue in both eyes) Neurological: Positive for: Headache Physical Exam - Reviewed Nursing Documentation Reviewed: Yes Vital Signs Reviewed: Yes - Physical Exam Appears: Positive for: Non-toxic Head Exam: Positive for: ATRAUMATIC, NORMOCEPHALIC Skin: Positive for: Warm, Dry Eye Exam: Positive for: EOMI, PERRL. Negative for: Nystagmus ENT: Positive for: Other (dry muc membranes). Negative for: Pharyngeal Erythema , Tonsillar Exudate Neck: Positive for: Painless ROM, Supple Cardiovascular/Chest: Positive for: Regular Rate, Rhythm, Chest Non Tender. Negative for: Murmur Respiratory: Positive for: Normal Breath Sounds. Negative for: Wheezing Gastrointestinal/Abdominal: Positive for: Soft. Negative for: Tenderness Back: Positive for: Normal Inspection. Negative for: Muscle Spasm Extremity: Positive for: Normal ROM. Negative for: Deformity Lymphatic: Negative for: Adenopathy Neurologic/Psych: Positive for: Alert, driveway attendant II-XII (intact), Oriented (x3), Cerebellar Tests (normal). Negative for: Motor/Sensory Deficits, Aphasia, Facial Droop - Laboratory Results Result Diagrams: 12/14/16 17:00 12/14/16 17:40 - ECG ECG: Positive for: Interpreted By Me, Viewed By Me ECG Rhythm: Positive for: Normal QRS, Normal ST Segment, Sinus Rhythm Rate: 86 O2 Sat by Pulse Oximetry: 99 (RA) Pulse Ox Interpretation: Normal Medical Decision Making Medical Decision Making: Time: 1629 Initial Impression: Hypertension and Headache Differential: Hypertensive encephalopathy tension headache, Migraine headache cerebral mass Initial Plan: Labs Blood work Urine EKG CT Head w/o contrast Tylenol 975 mg PO Benadryl 25mg IVP Reglan 10mg IVP Accession No. : [id number] Patient Name / ID : CHAYA REYNOLDS [id number] Exam Date : 12/14/2016 17:22:37 ( Approved ) Study Comment : Sex / Age : F / 56Y Creator : Yanely Grace Dictator : Yanely Grace Parking Enforcement Specialist : Tray Drier Operator : Yanely Grace Approver2 : Report Date : 12/14/2016 17:49:59 My Comment : PROCEDURE: CT HEAD WITHOUT CONTRAST. HISTORY: hypertension headache COMPARISON: Comparison is made to the previous study dated 06/09/2013 TECHNIQUE: Axial computed tomography images were obtained through the head/brain without intravenous contrast. Radiation dose: Total exam DLP = 1267.19 mGy-cm. This CT exam was performed using one or more of the following dose reduction techniques: Automated exposure control, adjustment of the mA and/or kV according to patient size, and/or use of iterative reconstruction technique. FINDINGS: HEMORRHAGE: No intracranial hemorrhage. BRAIN: No mass effect or edema. Mild atrophy is again noted. VENTRICLES: Unremarkable. No hydrocephalus. CALVARIUM: Unremarkable. PARANASAL SINUSES: Unremarkable as visualized. No significant inflammatory changes. MASTOID AIR CELLS: Unremarkable as visualized. No inflammatory changes. OTHER FINDINGS: None. IMPRESSION: No evidence of acute intracranial hemorrhage intracranial collection mass effect or midline shift. Labs demonstrate mild renal insufficiency, seen previously, as well as recurrence of UTI. Reviewed previous sensitivities of urine infection: E coli with sensitivity to bactrim. DW pt findings and plan of care. Advised urgent f/u with PMD. HCTZ and bactrim rx'd. Scribe Attestation: Documented by Zechariah Ramirez, acting as a scribe for Tianna Ann MD Provider Scribe Attestation: All medical record entries made by the Scribe were at my direction and personally dictated by me. I have reviewed the chart and agree that the record accurately reflects my personal performance of the history, physical exam, medical decision making, and the department course for this patient. I have also personally directed, reviewed, and agree with the discharge instructions and disposition. Disposition - Clinical Impression Clinical Impression: HTN (hypertension), UTI (urinary tract infection) Counseled Patient/Family Regarding: Studies Performed, Diagnosis, Need For Followup, Rx Given - Disposition Referrals: Tyrese Howard MD [Staff Provider] - 12/16/16 Disposition: Routine/Home Disposition Time: 19:00 Condition: IMPROVED Additional Instructions: YOU MUST FOLLOW UP WITH JUDD ON FRIDAY FOR REEVALUATION Prescriptions: hydroCHLOROthiazide [Hydrodiuril] 25 mg PO DAILY #14 tab Sulfamethoxazole/Trimethoprim [Bactrim DS 800 mg-160 mg] 1 tab PO BID #14 tab Instructions: Urinary Tract Infection in Women (ED), Hypertension (ED)
[2016-12-14 17:42] LABS: BASO # 0.1 K/uL (0.0-0.2); BASO % 0.5 % (0.0-2.0); EOS # 0.3 K/uL (0.0-0.7); EOS % 2.8 % (0.0-4.0); HEMATOCRIT 35.4 % (34.0-47.0); LYMPH # 2.4 K/uL (1.0-4.3); LYMPH % 25.6 % (20.0-40.0); MEAN CELL VOLUME 94.4 fl (81.0-99.0); MEAN CORPUSCULAR HEMOGLOBIN 30.9 pg (27.0-31.0); MEAN CORPUSCULAR HGB CONC 32.8 g/dL (33.0-37.0); MEAN PLATELET VOLUME 7.5 fl (7.2-11.7); MONO # 0.7 K/uL (0.0-0.8); MONO % 7.7 % (0.0-10.0); NEUT # 5.8 K/uL (1.8-7.0); NEUT % 63.4 % (50.0-75.0); RED CELL DISTRIBUTION WIDTH 14.3 % (11.5-14.5); WHITE BLOOD COUNT 9.2 K/uL (4.8-10.8)
[2016-12-14 17:43] LABS: RBC URINE 4 /hpf (0-3); URINE BACTERIA MOD (<OCC); URINE BILIRUBIN NEGATIVE (NEGATIVE); URINE BLOOD NEGATIVE (NEGATIVE); URINE CALCIUM OXALATE CRYSTALS RARE /hpf (<OCC); URINE COLOR YELLOW (YELLOW); URINE GLUCOSE (UA) NEG (Normal); URINE KETONE NEGATIVE (NEGATIVE); URINE LEUKOCYTE ESTERASE LARGE Leu/uL (Negative); URINE PROTEIN 30 mg/dL (NEGATIVE); URINE UROBILINOGEN 0.2-1.0 mg/dL (0.2-1.0); WBC URINE 189 /hpf (0-5)
--- NOTE | 2016-12-14 17:51 | CT ---
PROCEDURE: CT HEAD WITHOUT CONTRAST. HISTORY: hypertension headache COMPARISON: Comparison is made to the previous study dated 06/09/2013 TECHNIQUE: Axial computed tomography images were obtained through the head/brain without intravenous contrast. Radiation dose: Total exam DLP = 1267.19 mGy-cm. This CT exam was performed using one or more of the following dose reduction techniques: Automated exposure control, adjustment of the mA and/or kV according to patient size, and/or use of iterative reconstruction technique. FINDINGS: HEMORRHAGE: No intracranial hemorrhage. BRAIN: No mass effect or edema. Mild atrophy is again noted. VENTRICLES: Unremarkable. No hydrocephalus. CALVARIUM: Unremarkable. PARANASAL SINUSES: Unremarkable as visualized. No significant inflammatory changes. MASTOID AIR CELLS: Unremarkable as visualized. No inflammatory changes. OTHER FINDINGS: None. IMPRESSION: No evidence of acute intracranial hemorrhage intracranial collection mass effect or midline shift.
[2016-12-14 18:12] LABS: ALB/GLOB RATIO 1.1 (1.0-2.1); ALKALINE PHOSPHATASE 131 U/L (38-126); ALT/SGPT 31 U/L (9-52); AST/SGOT 22 U/L (14-36); BILIRUBIN,TOTAL 0.3 mg/dl (0.2-1.3); BLOOD UREA NITROGEN 19 mg/dl (7-17); CALCIUM 9.8 mg/dL (8.4-10.2); CARBON DIOXIDE 28 mmol/L (22-30); CHLORIDE 103 mmol/L (98-107); GFR AFRICAN-AMERICAN 43; GLUCOSE,RANDOM 87 mg/dL (65-105); MAGNESIUM 2.2 MG/DL (1.6-2.3); PHOSPHOROUS 3.7 mg/dl (2.5-4.5); POTASSIUM 4.3 MMOL/L (3.6-5.0); SODIUM 142 mmol/l (132-148); TOTAL PROTEIN 7.6 G/DL (6.3-8.2)
[2016-12-14 18:20] LABS: PARTIAL THROMBOPLASTIN TIME 28.5 Seconds (25.6-37.1)
[2016-12-14 18:29] LABS: T4 6.34 ug/dl (5.5-11.0)
[2016-12-14 18:43] LABS: THYROID STIMULATING HORMONE 0.94 mIU/ML (0.46-4.68)
[2016-12-14 19:01] VITALS: BP 160/87; RESP 19
[2016-12-14 19:17] VITALS: PULSE 86; O2SAT 99
--- NOTE | 2016-12-15 09:39 | CARD ---
APPROVED REPORT EKG Measurement Heart [id number] <Conclusion> Normal sinus rhythm Normal ECG
== END 2016-12-14 19:28 | disposition home or self-care (01) ==
LOC: H.ER 15:55
DX: N39.0 Urinary tract infection, site not specified (principal); I12.9 Hypertensive chronic kidney disease with stage 1 through stage 4 chronic kidney disease, or unspecified chronic kidney disease; N18.9 Chronic kidney disease, unspecified; M79.7 Fibromyalgia; M06.9 Rheumatoid arthritis, unspecified; E78.00 Pure hypercholesterolemia, unspecified; Z21 Asymptomatic human immunodeficiency virus [HIV] infection status
CPT/HCPCS: 70450; 80053; 81003; 83735; 84100; 84439; 84443; 84481; 84484; 85025; 85610; 85730; 86850; 86900; 87086; 87181; 93005; 96374; 96375; 99285; J1200; J1885; J2765

== ENCOUNTER 2017-06-27 06:15 | Day surgery (SDC) | payer MEDICAID ==
[2017-06-26 13:59] VITALS: BMI 30.7
[2017-06-27] MEDS ORDERED: Bupivacaine HCl 0.25% PF (30 ml) Inj ONE (07:13)
[2017-06-27] MEDS ORDERED: Iohexol 300 10 ML ONE (07:13)
[2017-06-27] MEDS ORDERED: MethylPREDNISolone Depo 40 mg/ml Inj ONE (07:13)
[2017-06-27] MEDS ORDERED: Bupivacaine HCl 0.5% PF (10 ml) Inj ONE (07:14)
[2017-06-27] MEDS ORDERED: Lidocaine Hydrochloride 1% 10 ML ONE (07:14)
[2017-06-27] MEDS ORDERED: Lactated Ringer's 1,000 ML IV ONE (08:05)
[2017-06-27] MEDS ORDERED: Midazolam 2 MG/2 ML VIAL ONE (08:14)
[2017-06-27] MEDS ORDERED: Lidocaine 1% Inj (20ml) IJ ONE (08:15)
[2017-06-27 10:22] VITALS: RESP 20; TEMP 98.1
--- NOTE | 2017-06-27 10:37 | OP ---
PROCEDURE DATE: 06/27/2017 PREOPERATIVE DIAGNOSIS: Lumbar facet syndrome. POSTOPERATIVE DIAGNOSIS: Lumbar facet syndrome. PROCEDURE: Bilateral L3, L4 and L5 medial branch nerve block. SURGEON: Garrett Urias MD TYPE OF ANESTHESIA: Monitored anesthesia care. ANESTHESIOLOGIST: Dr. Valero. COMPLICATIONS: None. SPECIMENS: None. DESCRIPTION OF PROCEDURE: As follows. After we had discussion of the procedure with the patient including its risks, benefits, alternatives, outcome data, possibility of no effect or increased pain, the patient consented to the procedure. She denied any recent infection, bleeding tendencies or being on anticoagulants, a decision was then made to proceed to the OR. The patient was placed on a fluoroscopy table in a prone position with 2 pillows underneath her abdomen. The back was prepped and draped in a usual sterile fashion and a sterile technique was adhered during the entire procedure. The L3, L4, and L5 medial branch nerves are located at the intersection of the superior articular process and the transverse process of the L4 and L5 pedicle along with the sacral ala. The procedure was first performed on the right by turning the fluoroscopy towards the right at approximately 15 degrees. The skin overlying the three above targeted areas was infiltrated with 1% lidocaine using a 25-gauge needle. Subsequently, a 22-gauge 3-1/2 inch spinal needle was incrementally advanced under fluoroscopic guidance until tip of needle made bony contact with all three targeted areas. After satisfactory positioning of all three needles, approximately 3 mL of 0.5% Marcaine and Depo-Medrol mixture was injected. The needle was then removed and the same exact procedure was performed on the contralateral left side using the same medications and techniques. At the end of the case, the patient's back was cleaned and dried, and bandages were applied. The patient was then transferred to recovery area in good condition without any signs of FARMWORKER GRAIN toxicity or any neurological deficits. She will be following in our office in approximately 2 to 4 weeks. Garrett Urias MD
[2017-06-27 11:17] VITALS: BP 119/56; PULSE 65; O2SAT 98
--- NOTE | 2017-06-27 13:53 | RAD ---
PROCEDURE: Lumbar epidural procedure/pain management HISTORY: PAIN MANAGEMENT COMPARISON: None TECHNIQUE: Total fluoroscopic time (continuous mode) utilized during the procedure 33.9 seconds. Total exam DLP: (mGy) 12.68 FINDINGS: Submitted images from the current procedure: 2.0 IMPRESSION: Less than 1 hr fluoroscopic time utilized during performance of the procedure.
== END 2017-06-27 13:05 | disposition home or self-care (01) ==
LOC: H.OPSURG 06:15
PROVIDERS: ATTEND Anesthesiology
DX: M46.96 Unspecified inflammatory spondylopathy, lumbar region (principal); Z21 Asymptomatic human immunodeficiency virus [HIV] infection status; E03.9 Hypothyroidism, unspecified
CPT/HCPCS: 64520; J1030; J2250; J2270; J3010; J7120; Q9967

== ENCOUNTER 2017-09-19 10:35 | Day surgery (SDC) | payer MEDICAID ==
[2017-09-19 11:59] VITALS: BMI 30.6
[2017-09-19] MEDS ORDERED: Lactated Ringer's 1,000 ML IV ONE (12:05)
[2017-09-19] MEDS ORDERED: Iohexol 300 10 ML ONE (12:08)
[2017-09-19] MEDS ORDERED: Midazolam 2 MG/2 ML VIAL ONE (12:09)
[2017-09-19] MEDS ORDERED: Propofol 10 mg/ml Inj (20 ML) ONE (12:09)
[2017-09-19] MEDS ORDERED: Bupivacaine HCl 0.25% PF (30 ml) Inj IJ ONE (12:15)
[2017-09-19] MEDS ORDERED: methylPREDNISolone Depo 80 mg/ml Inj IM ONE (12:15)
[2017-09-19] MEDS ORDERED: Lidocaine 1% Inj (20ml) IJ ONE (12:15)
[2017-09-19 13:36] VITALS: BP 149/71; PULSE 70; RESP 18; TEMP 98.9; O2SAT 96
--- NOTE | 2017-09-22 08:26 | OP ---
PROCEDURE DATE: 09/19/2017 PREOPERATIVE DIAGNOSIS: Bilateral sacroiliitis. POSTOPERATIVE DIAGNOSIS: Bilateral sacroiliitis. PROCEDURE: Bilateral sacroiliac joint steroid injection. ANESTHESIOLOGIST: Dr. Cruz. SURGEON: Garrett Urias MD ANESTHESIA TYPE: Monitored anesthesia care. COMPLICATIONS: None. SPECIMEN: None. DESCRIPTION OF PROCEDURE: As follows. After we had discussion of the procedure with the patient including its risks, benefits, alternatives, outcome data, possibility of no effect or increased pain, the patient consented to the procedure. She denies any recent infection, bleeding tendencies, or being on anticoagulants, decision was then made to proceed to the OR. The patient was placed on the fluoroscopy table in a prone position with two pillows underneath her abdomen. The back was prepped and draped in the usual sterile fashion. A sterile technique was adhered to during the entire procedure. The sacroiliac joints were first visualized in the anteroposterior view on the right side. The posterior opening was delineated from the anterior opening by towards the ipsilateral oblique side. The skin overlying the inferior pole of the posterior opening of the iliac joint was then infiltrated with 1% lidocaine using 25-gauge needle. Subsequently, a 22-gauge 3.5-inch spinal needle was incrementally advanced under fluoroscopic guidance until the tip of needle walked into the joint capsule. This was confirmed by injecting approximately 0.5 mL of Isovue contrast showing appropriate spread up the joint. At this point, approximately 4 mL of 0.25% Marcaine and Depo-Medrol mixture was injected. The needle was removed. The same exact procedure was performed on the contralateral left side using the same medications and techniques. At the end of the case, the patient's back was cleaned and dried, and bandages were applied. The patient was then transferred to the recovery area in good condition without any signs of HORSE SHOER toxicity or any neurological deficit. She will follow up in the office in approximately two to four weeks. Garrett Urias MD
--- NOTE | 2017-09-22 15:42 | RAD ---
PROCEDURE: Fluoroscopy up to 1 hr. HISTORY: PAIN MANAGEMENT COMPARISON: None TECHNIQUE: Standard protocol for this study/examination. FINDINGS: Total fluoroscopic time (continuous mode) utilized during the procedure (seconds) 22.1. Total exam DLP: (mGy) 5.64. IMPRESSION: Less than 1 hr fluoroscopic time utilized during performance of the procedure.
== END 2017-09-19 13:40 | disposition home or self-care (01) ==
LOC: H.OPSURG 10:35
PROVIDERS: ATTEND Anesthesiology
DX: M46.1 Sacroiliitis, not elsewhere classified (principal); J45.909 Unspecified asthma, uncomplicated; J44.9 Chronic obstructive pulmonary disease, unspecified; E78.5 Hyperlipidemia, unspecified; I10 Essential (primary) hypertension; M79.1 Myalgia
CPT/HCPCS: 27096; 82948; J1040; J2250; J2704; J3010; J7120; Q9967

== ENCOUNTER 2017-11-03 16:56 | Emergency (ER) | payer MEDICAID ==
[2017-11-03 17:17] VITALS: BMI 29.9
[2017-11-03] MEDS ORDERED: cefTRIAXone (Rocephin) 1 gm Inj IVPB ONE (18:32)
[2017-11-03] MEDS ORDERED: Sodium Chloride 0.9% 2,000 ML IV STA (18:32)
--- NOTE | 2017-11-03 18:35 | ED PDOC ---
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 Denies any uri/cough/vomiting/ diarrhea.) Past Medical History Reviewed: Historical Data, Nursing Documentation, Vital Signs Vital Signs: Last Vital Signs Temp 98.6 F 11/03/17 17:16 Pulse 81 11/03/17 17:16 Resp 16 11/03/17 17:16 BP 149/90 11/03/17 17:16 Pulse Ox 95 11/03/17 18:35 - Medical History PMH: Anxiety, Arthritis, Back Problems, Depression, Fibromyalgia, GERD, HIV, HTN (not taking med), Hypercholesterolemia, Hyperthyroidism, Kidney Stones, Migraine, Chronic Kidney Disease, Rheumatoid Arthritis, Chronic Pain (cervical, lumbar) Denies: Asthma, COPD, Hypothyroidism - Surgical History Surgical History: (2) - Family History Family History: States: [place] (Father had a heart attack >55yo), Hypertension - Immunization History Hx Tetanus Toxoid Vaccination: Yes (current) Hx Influenza Vaccination: Yes (12/2013) Hx Pneumococcal Vaccination: No - Home Medications Home Medications: Ambulatory Orders Medication Instructions Recorded Allopurinol [Zyloprim] 100 mg PO DAILY 06/26/16 Amitriptyline [Elavil] 50 mg PO HS 06/26/16 Gabapentin [Neurontin] 1,200 mg PO BID 06/26/16 Levothyroxine [Synthroid] 50 mcg PO DAILY 06/26/16 Omeprazole 20 mg PO DAILY 06/26/16 Venlafaxine [Effexor XR] 225 mg PO DAILY 06/26/16 Furosemide [Lasix] 20 mg PO DAILY 07/17/16 Multivitamin [Multi-Vitamin Daily] 1 tab PO DAILY 07/17/16 Oxycodone HCl/Acetaminophen 1 tab PO TID PRN 07/17/16 [Percocet 10-325 mg Tablet] Potassium Citrate [Urocit-K] 15 meq PO BID 07/17/16 Efavirenz [Sustiva] 600 mg PO HS 07/30/16 Folic Acid 400 mcg PO DAILY 07/30/16 LORazepam [Ativan] 0.5 mg PO BID 07/30/16 Lamivudine [Epivir] 150 mg PO DAILY 07/30/16 Raltegravir Potassium [Isentress] 400 mg PO BID 07/30/16 Tamsulosin [Flomax] 0.4 mg PO DAILY #30 cap 08/01/16 - Allergies Allergies/Adverse Reactions: Allergies Allergy/AdvReac Type Severity Reaction Status Date / Time No Known Allergies Allergy Verified 09/19/17 12:00 Review of Systems ROS Statement: Except As Marked, All Systems Reviewed And Found Negative Physical Exam - Reviewed Nursing Documentation Reviewed: Yes Vital Signs Reviewed: Yes - Physical Exam Appears: Positive for: Well, Non-toxic, No Acute Distress Head Exam: Positive for: ATRAUMATIC, NORMAL INSPECTION, NORMOCEPHALIC Skin: Positive for: Normal Color, Warm, DRY Eye Exam: Positive for: EOMI, Normal appearance, PERRL ENT: Positive for: Normal ENT Inspection Neck: Positive for: Normal, Painless ROM Cardiovascular/Chest: Positive for: Regular Rate, Rhythm Respiratory: Positive for: CNT, Normal Breath Sounds Gastrointestinal/Abdominal: Positive for: Normal Exam, Soft, Tenderness (right flank pain) Back: Positive for: Normal Inspection Extremity: Positive for: Normal ROM Neurologic/Psych: Positive for: Alert, Oriented - ECG O2 Sat by Pulse Oximetry: 95 - Progress ED Course And Treament: BC x 2 Rocephin 1 gm iv x 1 dose NS 1 liter 500 ml per hour Disposition - Disposition Forms: [employer] ([place])
--- NOTE | 2017-11-03 19:09 | CT ---
Date of service: 11/03/2017 PROCEDURE: CT Abdomen and Pelvis without intravenous contrast HISTORY: flank pain/chills. h/o kidney stone COMPARISON: Comparison is made with the previous study dated 07/30/2016 TECHNIQUE: Axial and reformatted coronal and sagittal CT images of the abdomen and pelvis were obtained without IV or oral contrast administration.. Contrast dose: 0 Radiation dose: Total exam DLP = 655.01 mGy-cm. This CT exam was performed using one or more of the following dose reduction techniques: Automated exposure control, adjustment of the mA and/or kV according to patient size, and/or use of iterative reconstruction technique. FINDINGS: LOWER THORAX: No evidence of acute pathology at the lung bases. LIVER: No significant interval change in the liver noted since the previous exam. GALLBLADDER AND BILE DUCTS: Unremarkable. PANCREAS: Unremarkable. No gross lesion or ductal dilatation. SPLEEN: Fatty replacement of the pancreas is again noted. ADRENALS: Unremarkable. No mass. KIDNEYS AND URETERS: Again seen are foci of calcification in both kidneys suggestive of medullary calcification. Interval significant improvement in the previously seen right hydronephrosis. No evidence of obstructing ureter stone. VASCULATURE: Unremarkable. No aortic aneurysm. BOWEL: Colonic diverticulosis are seen without evidence of diverticulitis. . No obstruction. No gross mural thickening. APPENDIX: Unremarkable. Normal appendix. PERITONEUM: Unremarkable. No free fluid. No free air. LYMPH NODES: Unremarkable. No enlarged lymph nodes. BLADDER: Unremarkable. REPRODUCTIVE: Unremarkable. BONES: No acute fracture. OTHER FINDINGS: None. IMPRESSION: No evidence of obstructing renal calculi. Interval improvement in the previously seen right hydronephrosis. Again noted bilateral medullary calcifications. Colonic diverticulosis without evidence of diverticulitis. No evidence of cholecystitis or appendicitis.
[2017-11-03 20:19] LABS: SQUAMOUS EPITHIAL < 1 /hpf (0-5); URINE BACTERIA OCC (<OCC); URINE BILIRUBIN NEGATIVE (NEGATIVE); URINE BLOOD NEGATIVE (NEGATIVE); URINE CLARITY CLOUDY (Clear); URINE COLOR YELLOW (YELLOW); URINE GLUCOSE (UA) NEG (Normal); URINE LEUKOCYTE ESTERASE LARGE Leu/uL (Negative); URINE PROTEIN 30 mg/dL (NEGATIVE); URINE UROBILINOGEN 0.2-1.0 mg/dL (0.2-1.0)
[2017-11-03 20:27] LABS: BASO # 0.1 K/uL (0.0-0.2); BASO % 0.7 % (0.0-2.0); EOS # 0.1 K/uL (0.0-0.7); EOS % 1.3 % (0.0-4.0); HEMOGLOBIN 13.4 g/dL (12.0-16.0); LYMPH # 2.8 K/uL (1.0-4.3); LYMPH % 32.4 % (20.0-40.0); MEAN CELL VOLUME 97.7 fl (81.0-99.0); MEAN CORPUSCULAR HEMOGLOBIN 31.9 pg (27.0-31.0); MEAN CORPUSCULAR HGB CONC 32.7 g/dL (33.0-37.0); MEAN PLATELET VOLUME 7.4 fl (7.2-11.7); MONO # 0.7 K/uL (0.0-0.8); MONO % 7.6 % (0.0-10.0); RBC 4.19 Mil/uL (3.80-5.20); RED CELL DISTRIBUTION WIDTH 14.3 % (11.5-14.5); WHITE BLOOD COUNT 8.7 K/uL (4.8-10.8)
[2017-11-03 20:32] LABS: VENOUS BLOOD GAS BASE EXCESS 0.4 mmol/L (0.0-2.0); VENOUS BLOOD GAS PCO2 55 mmHg (40-60); VENOUS BLOOD GAS PO2 22 mm/Hg (30-55); VENOUS BLOOD PH 7.31 (7.32-7.43)
[2017-11-03 20:57] LABS: ALB/GLOB RATIO 1.2 (1.0-2.1); ALBUMIN 4.5 g/dL (3.5-5.0); CALCIUM 10.4 mg/dL (8.4-10.2)
[2017-11-03 21:08] LABS: TROPONIN I 0.032 ng/mL (0.00-0.120)
--- NOTE | 2017-11-03 22:45 | ED PDOC ---
- Laboratory Results Result Diagrams: 11/03/17 20:23 11/03/17 20:23 - ECG O2 Sat by Pulse Oximetry: 95 Pulse Ox Interpretation: Normal Medical Decision Making Medical Decision Making: Pt endorsed pending labs and CT. Zofran and toradol ordered. Disposition - Clinical Impression Clinical Impression: UTI (urinary tract infection) - POA Present On Arrival: None - Disposition Disposition: Routine/Home Disposition Time: 22:46 Condition: GOOD Prescriptions: Ciprofloxacin [Cipro] 500 mg PO BID #10 tab Instructions: Urinary Tract Infections in Adults Forms: [employer] ([place]aroese)
[2017-11-03 22:50] VITALS: BP 149/87; PULSE 84; RESP 18; TEMP 98; O2SAT 99
--- NOTE | 2017-11-04 09:16 | CARD ---
APPROVED REPORT Date of service: 11/03/2017 <Conclusion> Normal sinus rhythm Inferior infarct, age undetermined Abnormal ECG
== END 2017-11-03 23:07 | disposition home or self-care (01) ==
LOC: H.ER 16:56
DX: N39.0 Urinary tract infection, site not specified (principal); B20 Human immunodeficiency virus [HIV] disease
CPT/HCPCS: 74176; 80053; 81003; 82803; 84484; 85025; 87040; 87086; 93005; 96374; 99283; J0696; J2270; J2405; J7030

== ENCOUNTER 2018-01-09 09:26 | Day surgery (SDC) | payer MEDICAID ==
[2018-01-09] MEDS ORDERED: Lactated Ringer's 1,000 ML IV ONE (09:40)
[2018-01-09 10:15] VITALS: RESP 18
[2018-01-09] MEDS ORDERED: MethylPREDNISolone Depo 40 mg/ml Inj ONE (10:55)
[2018-01-09] MEDS ORDERED: Lidocaine 1% Inj (20ml) ONE (10:56)
[2018-01-09] MEDS ORDERED: Midazolam 2 MG/2 ML VIAL ONE (10:58)
[2018-01-09] MEDS ORDERED: Lidocaine 1% Inj (20ml) INFIL ONE (11:10)
[2018-01-09] MEDS ORDERED: methylPREDNISolone Depo 80 mg/ml Inj IAA ONE (11:10)
[2018-01-09] MEDS ORDERED: Bupivacaine 0.25% Inj(30mL) IJ ONE ×2 (11:10)
[2018-01-09] MEDS ORDERED: HYDROmorphone 0.5 mg/0.5 ml ISec IVP PRN (11:38)
[2018-01-09] MEDS ORDERED: Lactated Ringer's 1,000 ML IV SCH (11:45)
[2018-01-09 12:53] VITALS: BP 141/78; PULSE 61; TEMP 98.1; O2SAT 100
--- NOTE | 2018-01-09 14:46 | RAD ---
Date of service: 01/09/2018 PROCEDURE: Intraoperative Fluoroscopy. HISTORY: PAIN MANAGEMENT FINDINGS: Fluoroscopic assistance was provided for lumbar epidural steroid injection. Please refer to the operative report from RONALD Lorenzana. Total fluoroscopic time (continuous mode) utilized during the procedure 38.0 (seconds).
--- NOTE | 2018-01-09 22:19 | OP ---
PROCEDURE DATE: 01/09/2018 PREOPERATIVE DIAGNOSIS: Lumbar spondylosis. POSTOPERATIVE DIAGNOSIS: Lumbar spondylosis. PROCEDURE: Right L3, L4, and L5 medial branch nerve radiofrequency. ANESTHESIOLOGIST: Damon Valero MD SURGEON: Garrett Urias MD TYPE OF ANESTHESIA: Monitored anesthesia care. COMPLICATIONS: None. SPECIMENS: None. DESCRIPTION OF PROCEDURES: As follows. After we had a discussion of the procedure with the patient including its risks, benefits, alternatives, outcome data, possibility of no effect or increased pain, the patient consented to the procedure. She denies any recent infection, bleeding tendencies, or being on anticoagulants. A decision was then made to proceed to the OR. The patient was placed on the fluoroscopy table in a prone position. The back was prepped and draped in the usual sterile fashion. A sterile technique was adhered to during the entire procedure. The L3, L4, and L5 medial branch nerves were located at the intersection of the superior articular process and transverse process of the L4 and L5 pedicles along with the sacral ala. The three above targeted areas were visualized under fluoroscopy by turning the angle towards the right approximately 15 degrees. The skin overlying this area was then infiltrated with 1% lidocaine using 25-gauge needle. Subsequently, a 22-gauge 3.5-inch Stimuplex needle was then incrementally advanced under fluoroscopic guidance until tip of the needle made bony contact with all three targeted areas. After satisfactory positioning of all three needles, sensory and motor testing was then carried out to satisfactory results. After satisfactory positioning of all three needles, approximately 1 mL of lidocaine was injected to numb the nerve. Radiofrequency was then carried out at 80 degrees Celsius for approximately 1.5 minutes. At the end of the procedure, each nerve was treated with a combination of 0.25% Marcaine and Depo-Medrol mixture. At the end of the case, the patient's back was cleaned and dry bandages were applied. The patient was then transferred to recovery area in good condition without any signs of CHAIR MENDER toxicity or any neurological deficits. The patient will be discharged with a followup in the office in approximately two to four weeks. Garrett Urias MD
== END 2018-01-09 13:35 | disposition home or self-care (01) ==
LOC: H.OPSURG 09:26
PROVIDERS: ATTEND Anesthesiology
DX: M47.816 Spondylosis without myelopathy or radiculopathy, lumbar region (principal); E03.9 Hypothyroidism, unspecified; I10 Essential (primary) hypertension
CPT/HCPCS: 64635; 64636; J1030; J1040; J2250; J3010; J7120

== ENCOUNTER 2018-05-01 09:52 | Day surgery (SDC) | payer MEDICAID ==
--- NOTE | 2018-05-01 10:21 | CP.SDSHP ---
Same Day Surgery H & P - History Proposed Procedure: Ganglion of Impar injection Pre-Op Diagnosis: Coccydynia - Allergies Allergies: Allergies No Known Allergies Allergy (Verified 09/19/17 12:00) - Physical Exam Neuro: WNL Heart: WNL Lungs: WNL - Impression Impression: Coccydynia Pt. Evaluated Today:Candidate for Anesthesia & Procedure: Yes Short Stay Discharge - Short Stay Discharge Admitting Diagnosis/Reason for Visit: M53.3 Disposition: HOME/ ROUTINE
[2018-05-01] MEDS ORDERED: Lactated Ringer's 1,000 ML IV ONE (11:12)
[2018-05-01] MEDS ORDERED: Bupivacaine HCl 0.25% PF (30 ml) Inj ONE (11:17)
[2018-05-01] MEDS ORDERED: MethylPREDNISolone Depo 40 mg/ml Inj ONE (11:17)
[2018-05-01] MEDS ORDERED: Iohexol 300 10 ML ONE (11:17)
[2018-05-01 11:57] VITALS: O2SAT 100
[2018-05-01 14:30] VITALS: BP 120/62; PULSE 64; RESP 18; TEMP 98.2
--- NOTE | 2018-05-01 14:43 | OP ---
PROCEDURE DATE: 05/01/2018 PREOPERATIVE DIAGNOSIS: Coccydynia. POSTOPERATIVE DIAGNOSIS: Coccydynia. PROCEDURE: Ganglion of Impar injection. SURGEON: Garrett Urias MD TYPE OF ANESTHESIA: Monitored anesthesia care. ANESTHESIOLOGIST: Damon Valero MD COMPLICATIONS: None. SPECIMEN: None. DESCRIPTION OF PROCEDURE: As follows: After we had a discussion of the procedure with the patient including its risks, benefits, alternatives, outcome data, and possibility of no effect or increased pain, the patient consented to the procedure. She denies any recent infection, bleeding tendencies, or being on anticoagulants. The decision was then made to proceed to the OR. The patient was placed on a fluoroscopy table in a prone position with two pillows underneath her abdomen. The back was prepped and draped in the usual sterile fashion, a sterile technique was adhered to during the entire procedure. The coccyx was palpated and then visualized on the anteroposterior view. A midline was made. Then, the fluoroscopy was turned towards the lateral position. The sacrococcygeal ligament was then identified. The skin overlying this area was then infiltrated with 1% lidocaine using 25-gauge needle. Subsequently, a 25-gauge 3.5-inch spinal needle was incrementally advanced under fluoroscopic guidance until the needle pierced the ligament. The needle was then carefully advanced until it was approximately 5 mL anterior to the sacrum. At this point, approximately 0.5 mL of Isovue contrast was injected showing appropriate spread. There were no signs of impingement on the intestine. At this point, approximately 5 mL of 0.25% Marcaine and Depo-Medrol mixture was injected. The needle was then removed. The patient's back was cleaned and dry bandage was applied. The patient was then transferred to the recovery area in good condition without any signs of INVENTORY COORDINATOR toxicity or any neurological deficit. She will be following in the office in approximately two to four weeks. Garrett Urias MD
--- NOTE | 2018-05-05 15:17 | RAD ---
Date of service: 05/01/2018 PROCEDURE: Fluoroscopy up to 1 hr. HISTORY: Acute embolism and thrombosis of unspecified deep veins of unspecified lower extremity COMPARISON: None TECHNIQUE: Standard protocol for this study/examination. FINDINGS: Total fluoroscopic time (continuous mode) utilized during the procedure 16.5 seconds. Total exam DLP: 7.12 (mGy). Submitted images from the current procedure: 2.0 IMPRESSION: Less than 1 hr fluoroscopic assistance provided during performance of the procedure.
== END 2018-05-01 15:00 | disposition home or self-care (01) ==
LOC: H.OPSURG 09:52
PROVIDERS: ATTEND Anesthesiology
DX: M53.3 Sacrococcygeal disorders, not elsewhere classified (principal); I10 Essential (primary) hypertension; E03.9 Hypothyroidism, unspecified; K21.9 Gastro-esophageal reflux disease without esophagitis
CPT/HCPCS: 20612; J1030; J7120; Q9967

== ENCOUNTER 2018-05-20 18:29 | Emergency (ER) | payer MEDICAID ==
[2018-05-20 18:30] VITALS: BMI 29.9
--- NOTE | 2018-05-20 20:44 | ED PDOC ---
HPI: General Adult Time Seen by Provider: 05/20/18 20:05 Chief Complaint (Nursing): Dizziness/Lightheaded Chief Complaint (Provider): weakness History Per: Patient History/Exam Limitations: no limitations Onset/Duration Of Symptoms: Days (1 month) Current Symptoms Are (Timing): Still Present Additional Complaint(s): 57 y/o female presents for evaluation of generalized weakness x 1 month. Patient states she will have moments where she becomes lightheaded as of she is going to faint and has to put her head down for symptoms to pass. Patient states symptoms worse after exertion. Patient states she has a longstanding history of kidney stones and follows with a Urologist, who she saw last week and was started on Bactrim DS. Patient stats she also saw her PMD last week for a physical and was told she will need to see a Coin Machine Collector and sent for a chest xray. Patient reports experiencing increased mouth dryness and excessive thirst for the last week. Patient also complaining of neck pain radiating to left shoulder x months. Denies fever, headache, dizziness, extremity numbness/weakness, chest pain, shortness of breath, palpitations, nausea/vomiting, abdominal pain, leg pain/swelling, dysuria, hematuria. Past Medical History Reviewed: Historical Data, Nursing Documentation, Vital Signs Vital Signs: Last Vital Signs Temp 97.8 F 05/20/18 19:50 Pulse 88 05/20/18 19:50 Resp 16 05/20/18 19:50 BP 125/74 05/20/18 19:50 Pulse Ox 98 05/20/18 19:50 - Medical History PMH: Anxiety, Arthritis, Back Problems, Depression, Fibromyalgia, GERD, HIV, HTN (not taking med), Hypercholesterolemia, Hyperthyroidism, Kidney Stones, Migraine, Chronic Kidney Disease, Rheumatoid Arthritis, Chronic Pain (cervical, lumbar) Denies: Asthma, COPD, Hypothyroidism - Surgical History Surgical History: (2) - Family History Family History: States: [place] (Father had a heart attack >55yo), Hypertension - Immunization History Hx Tetanus Toxoid Vaccination: Yes (current) Hx Influenza Vaccination: Yes (12/2013) Hx Pneumococcal Vaccination: No - Home Medications Home Medications: Ambulatory Orders Medication Instructions Recorded Allopurinol [Zyloprim] 100 mg PO DAILY 06/26/16 Amitriptyline [Elavil] 50 mg PO HS 06/26/16 Gabapentin [Neurontin] 1,200 mg PO BID 06/26/16 Levothyroxine [Synthroid] 50 mcg PO DAILY 06/26/16 Omeprazole 20 mg PO DAILY 06/26/16 Venlafaxine [Effexor XR] 225 mg PO DAILY 06/26/16 Furosemide [Lasix] 20 mg PO DAILY 07/17/16 Multivitamin [Multi-Vitamin Daily] 1 tab PO DAILY 07/17/16 Oxycodone HCl/Acetaminophen 1 tab PO TID PRN 07/17/16 [Percocet 10-325 mg Tablet] Potassium Citrate [Urocit-K] 15 meq PO BID 07/17/16 Folic Acid 400 mcg PO DAILY 07/30/16 LORazepam [Ativan] 0.5 mg PO BID 07/30/16 Bictegrav/Emtricit/Tenofov Ala 1 each PO DAILY 01/09/18 [Biktarvy 50-200-25 mg Tablet] Enalapril Maleate [Vasotec] 5 mg PO DAILY 01/09/18 Loratadine [Claritin] 10 mg PO DAILY 01/09/18 Ondansetron [Zofran] 4 mg PO DAILY PRN 01/09/18 Lidocaine 5% [Lidoderm] 1 patch TOP DAILY PRN #7 patch 05/21/18 - Allergies Allergies/Adverse Reactions: Allergies Allergy/AdvReac Type Severity Reaction Status Date / Time No Known Allergies Allergy Verified 05/20/18 19:49 Review of Systems ROS Statement: Except As Marked, All Systems Reviewed And Found Negative Constitutional: Positive for: Weakness, Malaise Musculoskeletal: Positive for: Neck Pain Physical Exam - Reviewed Nursing Documentation Reviewed: Yes Vital Signs Reviewed: Yes - Physical Exam Appears: Positive for: Well, Non-toxic, No Acute Distress Head Exam: Positive for: ATRAUMATIC, NORMAL INSPECTION, NORMOCEPHALIC Skin: Positive for: Normal Color Eye Exam: Positive for: Normal appearance ENT: Positive for: TM Is/Are (clear bilaterally), Other (cracked lips, dry mouth). Negative for: Nasal Congestion, Pharyngeal Erythema, Tonsillar Exudate, Tonsillar Swelling Cardiovascular/Chest: Positive for: Regular Rate, Rhythm Respiratory: Positive for: Normal Breath Sounds Gastrointestinal/Abdominal: Positive for: Normal Exam Back: Positive for: Muscle Spasm (left cspine paraspinal tenderness, left trapezius tenderness). Negative for: L CVA Tenderness, R CVA Tenderness, Vertebral Tenderness, Decreased ROM Extremity: Positive for: Normal ROM Neurologic/Psych: Positive for: Alert, Oriented (x3) - Laboratory Results Result Diagrams: 05/20/18 21:14 05/20/18 21:14 - ECG ECG: Positive for: Viewed By Me (reviewed by ED attending) ECG Rhythm: Positive for: Sinus Rhythm O2 Sat by Pulse Oximetry: 98 - Progress ED Course And Treament: -accucheck -ekg -cbc -cmp -troponin -bnp -magnesium -phosphorous -urinalysis -urine drug screen -IV NS bolus -IV toradol Patient educated on elevated kidney function tests; states she was told by her PMD they were abnormal when she had blood work on 04/27/18. Case discussed with Maulik Chowdary DNP, who looked up results which were BUN 32, Cre 2.06 at that time; advised if CT without acute findings can follow up with Dr. Howard in the morning for further evaluation EXAM: CT Abdomen and Pelvis without IV contrast CLINICAL HISTORY: Back pain, elevated bun/cret. h/o renal stones TECHNIQUE: Axial computed tomography images of the abdomen and pelvis without intravenous contrast. 771.74 mGy-cm CONTRAST: Without COMPARISON: Comparison is made to prior examination dated 11/03/2017. FINDINGS: LUNG BASES: The lung bases appear clear. No pleural effusions are seen. LIVER: Mild hepatomegaly. 17.5 cm in the midclavicular line. GALLBLADDER AND BILE DUCTS: The gallbladder appears within normal limits. No radioopaque gallstones are seen. No biliary ductal dilatation is evident. PANCREAS: The head and body appear to be within normal limits. The tail of the pancreas appears atrophic; and is barely perceptible. SPLEEN: Unremarkable. ADRENAL GLANDS: Unremarkable. KIDNEYS, URETERS, AND BLADDER: Both kidneys are normal in size and location. A 3.6 mm mildly obstructing calculus is seen within the proximal right ureter. There is mild associated right hydronephrosis. Bilateral nephrocalcinosis is noted at the cortical medullary junction; much more extensive on the left. The possibility of renal tubular acidosis should be considered. The urinary bladder is normal in size and configuration. STOMACH AND BOWEL: A small hiatal hernia is again noted. No evidence of bowel obstruction. No evidence suggesting enteritis or colitis. Relatively abundant fecal material is present within the colon suggesting some degree of constipation. APPENDIX: No evidence of acute appendicitis on CT examination. PERITONEUM: No free fluid. No free air. LYMPH NODES: No lymphadenopathy is evident. REPRODUCTIVE: Unremarkable as visualized. VASCULATURE: No evidence of abdominal aortic aneurysm. Minor atherosclerotic vascular plaquing is present. BONES: No aggressive appearing osseous lesion. No acute osseous pathology evident. Some vacuum disc phenomenon is seen at L5-S1 compatible with disc desiccation and some degenerative disc disease. IMPRESSION: 1. A 3.6 mm mildly obstructing calculus is seen within the proximal right ureter. There is associated mild right hydronephrosis. 2. Bilateral nephrocalcinosis; more extensive on the left. The possibility of renal tubular acidosis should be considered. 3. A small hiatal hernia is identified. 4. Relatively abundant fecal material suggests constipation. 5. Mild hepatomegaly. 6. The tail of the pancreas is barely perceptible suggesting atrophy. 7. Evidence of mild degenerative disc disease at L5-S1. Patient states she is feeling better on re-evaluation Patient was educated on findings, advised to follow up with PMD in the morning for bevel polisher referral Advised to follow up with Urologist for kidney stone. Patient denies abd/flank/ back pain currently. Continue Flomax. Drink plenty of fluids Advised high fiber diet for constipation Return precautions given Disposition - Clinical Impression Clinical Impression: Kidney function abnormal, Generalized weakness, Neck muscle strain, Kidney stone on right side, Constipation - Patient ED Disposition Is Patient to be Admitted: No Counseled Patient/Family Regarding: Studies Performed, Diagnosis, Need For Followup, Rx Given - Disposition Disposition: Routine/Home Disposition Time: 00:15 Condition: IMPROVED Additional Instructions: Follow up with your primary doctor in the morning Follow up with your Urologist Drink plenty of water Continue current medications Take Tylenol as directed, as needed for neck pain Return to ED for worsening/concerning symptoms Prescriptions: Lidocaine 5% [Lidoderm] 1 patch TOP DAILY PRN #7 patch PRN Reason: Pain, Moderate (4-7) Instructions: Muscle Strain, Generalized Weakness, Kidney Stones in Adults, High Fiber Diet Forms: [facility] (Lao)
[2018-05-20 21:22] LABS: BASO # 0.1 K/uL (0.0-0.2); BASO % 0.9 % (0.0-2.0); EOS # 0.1 K/uL (0.0-0.7); EOS % 1.6 % (0.0-4.0); HEMOGLOBIN 12.2 g/dL (12.0-16.0); LYMPH # 2.3 K/uL (1.0-4.3); LYMPH % 26.3 % (20.0-40.0); MEAN CELL VOLUME 98.7 fl (81.0-99.0); MEAN CORPUSCULAR HEMOGLOBIN 32.5 pg (27.0-31.0); MEAN CORPUSCULAR HGB CONC 32.9 g/dL (33.0-37.0); MEAN PLATELET VOLUME 7.2 fl (7.2-11.7); MONO # 0.5 K/uL (0.0-0.8); MONO % 5.6 % (0.0-10.0); NEUT # 5.6 K/uL (1.8-7.0); NEUT % 65.6 % (50.0-75.0); NRBC % 0.1 % (0.0-0.0); RBC 3.74 Mil/uL (3.80-5.20); RED CELL DISTRIBUTION WIDTH 14.3 % (11.5-14.5); WHITE BLOOD COUNT 8.6 K/uL (4.8-10.8)
[2018-05-20] MEDS: Sodium Chloride 0.9% 1,000 ML IV STA (21:22)
[2018-05-20 21:33] LABS: ALB/GLOB RATIO 1.2 (1.0-2.1); ALBUMIN 4.3 g/dL (3.5-5.0); ALT/SGPT 31 U/L (9-52); AST/SGOT 35 U/L (14-36); BLOOD UREA NITROGEN 38 mg/dl (7-17); CALCIUM 9.7 mg/dL (8.4-10.2); GFR NON-AFRICAN AMERICAN 20
[2018-05-20 21:44] LABS: B-TYPE NATRIURETIC PEPTIDE 185 pg/ml (0-900)
[2018-05-20 21:52] LABS: SQUAMOUS EPITHIAL 1 /hpf (0-5); URINE BACTERIA RARE (<OCC); URINE BILIRUBIN NEGATIVE (NEGATIVE); URINE BLOOD NEGATIVE (NEGATIVE); URINE CLARITY CLEAR (Clear); URINE COLOR YELLOW (YELLOW); URINE GLUCOSE (UA) NEG (NEGATIVE); URINE HYALINE CAST 0-2 /hpf (0-2); URINE LEUKOCYTE ESTERASE TRACE Leu/uL (Negative); URINE PROTEIN NEGATIVE (NEGATIVE); URINE UROBILINOGEN 0.2-1.0 mg/dL (0.2-1.0)
[2018-05-21 00:47] VITALS: BP 109/66; PULSE 80; RESP 18; TEMP 98.3
[2018-05-21 00:48] VITALS: O2SAT 98
--- NOTE | 2018-05-21 11:50 | CARD ---
APPROVED REPORT Date of service: 05/21/2018 EKG Measurement Heart [id number] <Conclusion> Normal sinus rhythm Possible Inferior infarct, age undetermined Abnormal ECG
--- NOTE | 2018-05-21 12:56 | CT ---
Date of service: 05/20/2018 PROCEDURE: CT Abdomen and Pelvis without intravenous contrast HISTORY: elevated bun/crea, h/o kidney stones COMPARISON: Noncontrast abdomen and pelvis CT 11/03/2017. TECHNIQUE: Helical CT of the abdomen and pelvis was performed without oral or intravenous contrast as per referring physician request. Coronal and sagittal reformats were generated.. Contrast dose: None Radiation dose: Total exam DLP = 771.74 mGy-cm. This CT exam was performed using one or more of the following dose reduction techniques: Automated exposure control, adjustment of the mA and/or kV according to patient size, and/or use of iterative reconstruction technique. FINDINGS: LOWER THORAX: Small hiatal hernia identified. LIVER: Unremarkable. No gross lesion or ductal dilatation. GALLBLADDER AND BILE DUCTS: Distended but otherwise unremarkable gallbladder noted. Clinically correlate for potential cholecystitis though no overt inflammatory changes are demonstrated at this time. PANCREAS: Fat replaced a trophic pancreas again evident. SPLEEN: Unremarkable. ADRENALS: No dominant mass is seen at either in collateral though punctate calcifications seen related to the right adrenal gland. KIDNEYS AND URETERS: Trucks the proximal right ureter causing dilatation of the proximal right ureter and right renal pelvis and borderline caliceal dilatation. No left obstructive uropathy bilaterally or gross mass bilaterally. Parenchymal calcifications scattered at the bilateral kidneys with underlying punctate intrarenal calculi not excluded bilaterally though nonobstructive if present. No perinephric reaction bilaterally. Appearance is stable in the interval. VASCULATURE: Nonaneurysmal abdominal aortic calcific atherosclerotic changes are identified. BOWEL: Increased retained fecal material and gas is seen throughout the large bowel is only borderline for constipation. Left colonic diverticular reiterated without diverticulitis acutely evident. APPENDIX: Retrocecal nonacute appendix at mid right pelvic sidewall. PERITONEUM: Unremarkable. No free fluid. No free air. LYMPH NODES: Unremarkable. No enlarged lymph nodes. BLADDER: Unremarkable. REPRODUCTIVE: Unremarkable. BONES: No acute fracture. OTHER FINDINGS: None. IMPRESSION: 1. 5 mm proximal right ureteral calculus causes mild right-sided obstructive uropathy without perinephric reaction evident. No left-sided obstructive uropathy. 2. Bilateral nephrocalcinosis reiterated, left greater than right. Underlying additional punctate intrarenal calculi are not excluded but would be nonobstructive if present. 3. Distended gallbladder. 4. Small hiatal hernia again encountered. Preliminary report provided by Bharathi, 05/20/2018, 11:04 p.m..
== END 2018-05-21 01:00 | disposition home or self-care (01) ==
LOC: H.ER 18:29
DX: R94.4 Abnormal results of kidney function studies (principal); M62.81 Muscle weakness (generalized); K59.00 Constipation, unspecified; N20.0 Calculus of kidney; M54.2 Cervicalgia; E78.00 Pure hypercholesterolemia, unspecified; E83.59 Other disorders of calcium metabolism; F41.9 Anxiety disorder, unspecified; F32.9 Major depressive disorder, single episode, unspecified; K21.9 Gastro-esophageal reflux disease without esophagitis; K44.9 Diaphragmatic hernia without obstruction or gangrene; M51.37 Other intervertebral disc degeneration, lumbosacral region; M79.7 Fibromyalgia; N29 Other disorders of kidney and ureter in diseases classified elsewhere; B20 Human immunodeficiency virus [HIV] disease
CPT/HCPCS: 74176; 80053; 81003; 82948; 83735; 83880; 84100; 84484; 85025; 87086; 93005; 96360; 99284; J1885; J7030

== ENCOUNTER 2018-07-06 19:20 | Emergency (ER) | payer MEDICAID ==
[2018-07-06 19:21] VITALS: BMI 29.9
--- NOTE | 2018-07-06 21:16 | ED PDOC ---
HPI: Hypertension/Hypotension Time Seen by Provider: 07/06/18 20:49 Chief Complaint (Nursing): High Blood Pressure Chief Complaint (Provider): High Blood Pressure History Per: Patient History/Exam Limitations: no limitations Onset/Duration Of Symptoms: Days Current Symptoms Are (Timing): Still Present Additional Complaint(s): 58 y/o female with a PMHx of HTN, depression, HIV, CKD, arthritis and thyroid disorder presents to the ED for evaluation of Hypertension. Patient reports that for the last month and a half she has been experiencing intermittent headaches. Patient states she thought that might have been due to vision changes further stating she had recently gotten her eyes check due to floaters. Patient notes she is otherwise okay. Patient reports on Friday, her headache worsened prompting her to go to an Urgent Care where she was told her blood pressure was high. Patient notes of seeing her PMD today and was found again to have an elevated blood pressure. At her PMD's office, patient was given two doses of 0.1 mg Clonidine with minimal relief and advised to come to the ER for further evaluation of uncontrolled HTN. Otherwise, patient denies chest pain, shortness of breath, leg swelling, focal weakness, blurry vision and difficulty with gait or speech. PMD: Tyrese Howard Past Medical History Reviewed: Historical Data, Nursing Documentation, Vital Signs Vital Signs: Last Vital Signs Temp 98.5 F 07/06/18 19:34 Pulse 69 07/06/18 19:34 Resp 19 07/06/18 19:34 BP 152/93 H 07/06/18 19:34 Pulse Ox 97 07/06/18 19:34 - Medical History PMH: Anxiety, Arthritis, Back Problems, Depression, Fibromyalgia, GERD, HIV, HTN (not taking med), Hypercholesterolemia, Hyperthyroidism, Kidney Stones, Migraine, Chronic Kidney Disease, Rheumatoid Arthritis, Chronic Pain (cervical, lumbar) Denies: Asthma, COPD, Hypothyroidism - Surgical History Surgical History: (2) Other surgeries: tubal ligation - Family History Family History: States: [place] (Father had a heart attack @ 60yo), Hypertension - Social History Current smoker - smoking cessation education provided: No Alcohol: None Drugs: Denies - Immunization History Hx Tetanus Toxoid Vaccination: Yes (current) Hx Influenza Vaccination: Yes (12/2013) Hx Pneumococcal Vaccination: No - Home Medications Home Medications: Ambulatory Orders Medication Instructions Recorded Allopurinol [Zyloprim] 100 mg PO DAILY 06/26/16 Amitriptyline [Elavil] 50 mg PO HS 06/26/16 Gabapentin [Neurontin] 1,200 mg PO BID 06/26/16 Levothyroxine [Synthroid] 50 mcg PO DAILY 06/26/16 Omeprazole 20 mg PO DAILY 06/26/16 Venlafaxine [Effexor XR] 225 mg PO DAILY 06/26/16 Furosemide [Lasix] 20 mg PO DAILY 07/17/16 Multivitamin [Multi-Vitamin Daily] 1 tab PO DAILY 07/17/16 Oxycodone HCl/Acetaminophen 1 tab PO TID PRN 07/17/16 [Percocet 10-325 mg Tablet] Potassium Citrate [Urocit-K] 15 meq PO BID 07/17/16 Folic Acid 400 mcg PO DAILY 07/30/16 LORazepam [Ativan] 0.5 mg PO BID 07/30/16 Bictegrav/Emtricit/Tenofov Ala 1 each PO DAILY 01/09/18 [Biktarvy 50-200-25 mg Tablet] Enalapril Maleate [Vasotec] 5 mg PO DAILY 01/09/18 Loratadine [Claritin] 10 mg PO DAILY 01/09/18 Ondansetron [Zofran] 4 mg PO DAILY PRN 01/09/18 Lidocaine 5% [Lidoderm] 1 patch TOP DAILY PRN #7 patch 05/21/18 - Allergies Allergies/Adverse Reactions: Allergies Allergy/AdvReac Type Severity Reaction Status Date / Time Sulfa (Sulfonamide AdvReac Mild COUGH Verified 07/06/18 19:38 Antibiotics) Review of Systems ROS Statement: Except As Marked, All Systems Reviewed And Found Negative Constitutional: Positive for: Other (elevated blood pressure) Eyes: Negative for: Vision Change Cardiovascular: Negative for: Chest Pain Respiratory: Negative for: Shortness of Breath Musculoskeletal: Negative for: Leg Pain (leg swelling) Neurological: Positive for: Headache. Negative for: Weakness, Incoordination, Change in Speech Physical Exam - Reviewed Nursing Documentation Reviewed: Yes Vital Signs Reviewed: Yes - Physical Exam Appears: Positive for: Well, No Acute Distress Head Exam: Positive for: ATRAUMATIC, NORMOCEPHALIC Skin: Positive for: Warm, Dry Eye Exam: Positive for: EOMI, PERRL ENT: Positive for: Pharynx Is (clear), Other (dry mucous membrane) Neck: Positive for: Painless ROM, Supple Cardiovascular/Chest: Positive for: Regular Rate, Rhythm. Negative for: Murmur Respiratory: Positive for: Normal Breath Sounds. Negative for: Respiratory Distress Gastrointestinal/Abdominal: Positive for: Soft. Negative for: Tenderness Back: Positive for: Normal Inspection. Negative for: Decreased ROM Extremity: Positive for: Normal ROM. Negative for: Deformity Lymphatic: Negative for: Adenopathy Neurological/Psych: Positive for: Awake, Alert, Oriented (x3). Negative for: Motor/Sensory Deficits, Facial Droop - Laboratory Results Result Diagrams: 07/06/18 21:40 07/06/18 21:40 - ECG ECG: Positive for: Interpreted By Me, Viewed By Me ECG Rhythm: Positive for: Normal QRS, Normal ST Segment, Sinus Rhythm Rate: 60 O2 Sat by Pulse Oximetry: 97 (RA) Pulse Ox Interpretation: Normal Medical Decision Making Medical Decision Making: Time: 2101 Impression: HTN and Headache Differentials include but not limited to hypertensive encephalopathy, intercranial mass or bleed, acute on chronic kidney disease and migraine headache Plan: -- CT Head w/o Contrast -- EKG -- CMP -- Urine Drug Screen -- Lact Acid, Plasma -- Magnesium -- Phosphorus -- Thyroid Stimulating Hormone -- ED Urine Dipstick -- CBC with Differentials -- Financial Processing Clerk -- IV Insertion Labs demonstrate mild hypokalemia, stable CKD No emergently significant abnormalities Name: GAIL LARKIN Exam Date: Jul 06, 2018 10:05:48 PM EDT Modality Type: CT Description: CT - BRAIN Gender: F Laterality: Not applicable : 56 Referring Physician: Tianna Ann EXAM: CT Head Without IV contrast. CLINICAL HISTORY: Htn headache TECHNIQUE: Axial computed tomography images of the head/brain without intravenous contrast. COMPARISON: None provided. FINDINGS: BRAIN: Mild periventricular, deep and subcortical white matter hypodensity bilaterally, compatible with mild microangiopathy. No midline shift or mass effect. No CT evidence for acute intracranial hemorrhage. VENTRICLES: There is mild prominence of ventricles and sulci compatible with mild atrophy. ORBITS: The orbits are unremarkable. SINUSES AND MASTOIDS: The paranasal sinuses and mastoid air cells are clear. BONES: No evidence for displaced calvarial fracture. SOFT TISSUES: Unremarkable. MISCELLANEOUS: No CT evidence for acute territorial infarction. IMPRESSION: 1. There is mild prominence of ventricles and sulci compatible with mild atrophy. 2. Mild periventricular, deep and subcortical white matter hypodensity bilaterally, compatible with mild microangiopathy. 3. No CT evidence for acute intracranial abnormality. Electronically signed on Jul 06, 2018 10:42:49 PM EDT by: Malachi Ramirez M.D., MBA Certified By [facility] & [facility] Fellowship Trained MRI and CT Specialist Scribe Attestation: Documented by Oxana Bennett, acting as a scribe Ming Ann MD. Provider Scribe Attestation: All medical record entries made by the Scribe were at my direction and personally dictated by me. I have reviewed the chart and agree that the record accurately reflects my personal performance of the history, physical exam, medical decision making, and the department course for this patient. I have also personally directed, reviewed, and agree with the discharge instructions and disposition. Disposition - Clinical Impression Clinical Impression: HTN (hypertension) Counseled Patient/Family Regarding: Studies Performed, Diagnosis, Need For Followup - Disposition Referrals: Tyrese Howard MD [Family Provider] - (FOLLOWUP WITH JUDD IN 24-48 HOURS) Disposition: Routine/Home Disposition Time: 23:22 Condition: IMPROVED Instructions: High Blood Pressure (DC), Headache, Adult (DC)
[2018-07-06 21:51] LABS: BASO # 0.1 K/uL (0.0-0.2); BASO % 0.8 % (0.0-2.0); EOS # 0.3 K/uL (0.0-0.7); EOS % 3.3 % (0.0-4.0); HEMOGLOBIN 12.6 g/dL (12.0-16.0); LYMPH # 2.4 K/uL (1.0-4.3); LYMPH % 28.1 % (20.0-40.0); MEAN CELL VOLUME 95.6 fl (81.0-99.0); MEAN CORPUSCULAR HEMOGLOBIN 32.7 pg (27.0-31.0); MEAN CORPUSCULAR HGB CONC 34.2 g/dL (33.0-37.0); MEAN PLATELET VOLUME 7.1 fl (7.2-11.7); MONO # 0.6 K/uL (0.0-0.8); MONO % 7.3 % (0.0-10.0); NEUT # 5.1 K/uL (1.8-7.0); NEUT % 60.5 % (50.0-75.0); RBC 3.86 Mil/uL (3.80-5.20); WHITE BLOOD COUNT 8.4 K/uL (4.8-10.8)
[2018-07-06 22:02] LABS: ALB/GLOB RATIO 1.2 (1.0-2.1); ALBUMIN 4.1 g/dL (3.5-5.0); CALCIUM 9.9 mg/dL (8.4-10.2)
[2018-07-06] MEDS ORDERED: Potassium Chloride 20 mEq ER Tab PO STA (22:37)
[2018-07-06 22:43] LABS: PHENCYCLIDINE, UR NEGATIVE (NEGATIVE)
[2018-07-06 22:45] LABS: BARBITURATES, UR NEGATIVE (NEGATIVE); BENZODIAZEPINES, UR NEGATIVE (NEGATIVE); OPIATES, UR NEGATIVE (NEGATIVE)
[2018-07-06] MEDS ORDERED: Potassium Chloride 20 mEq ER Tab PO ONE (22:55)
[2018-07-06] MEDS ORDERED: Metoprolol 1 mg/ml Inj IVP STA (23:32)
[2018-07-06 23:45] VITALS: BP 143/73; RESP 18; TEMP 98.6
[2018-07-06 23:50] VITALS: PULSE 60; O2SAT 97
--- NOTE | 2018-07-07 11:47 | CT ---
Date of service: 07/06/2018 PROCEDURE: CT HEAD WITHOUT CONTRAST. HISTORY: Hypertension, headache. COMPARISON: 12/14/2016. TECHNIQUE: Axial computed tomography images were obtained through the head/brain without intravenous contrast. Supplemental Coronal and Sagittal projections created and reviewed. Radiation dose: Total exam DLP = 712.43 mGy-cm. This CT exam was performed using one or more of the following dose reduction techniques: Automated exposure control, adjustment of the mA and/or kV according to patient size, and/or use of iterative reconstruction technique. FINDINGS: HEMORRHAGE: No intracranial hemorrhage. BRAIN: No mass effect or edema. Cortical atrophy and chronic microvascular ischemic change. Findings primarily identified and both frontal lobes. VENTRICLES: Unremarkable. No hydrocephalus. CALVARIUM: Unremarkable. PARANASAL SINUSES: Unremarkable as visualized. No significant inflammatory changes. MASTOID AIR CELLS: Unremarkable as visualized. No inflammatory changes. OTHER FINDINGS: None. IMPRESSION: No acute intracranial abnormalities. No significant findings to account for the clinical presentation. No significant interval change compared to the prior examination(s). Concordant results (preliminary interpretation) provided by [facility]. Procedure Completed: 22:08. Preliminary Report: Interpreted and electronically signed: 22:42. Final Interpretation: 11:43. July 07, 2018.
--- NOTE | 2018-07-07 21:11 | CARD ---
APPROVED REPORT Date of service: 07/06/2018 EKG Measurement Heart [id number] CO [id number] <Conclusion> Normal sinus rhythm Normal ECG
== END 2018-07-07 00:05 | disposition home or self-care (01) ==
LOC: H.ER 19:20
DX: I10 Essential (primary) hypertension (principal); E07.9 Disorder of thyroid, unspecified; Z86.59 Personal history of other mental and behavioral disorders; I12.9 Hypertensive chronic kidney disease with stage 1 through stage 4 chronic kidney disease, or unspecified chronic kidney disease; N18.9 Chronic kidney disease, unspecified; Z88.2 Allergy status to sulfonamides

== ENCOUNTER 2018-07-21 12:21 | Emergency (ER) | payer MEDICAID ==
[2018-07-21 12:21] VITALS: BMI 29.9
[2018-07-21 13:48] LABS: BASO # 0.1 K/uL (0.0-0.2); EOS # 0.1 K/uL (0.0-0.7); EOS % 1.3 % (0.0-4.0); HEMOGLOBIN 13.7 g/dL (12.0-16.0); LYMPH % 25.1 % (20.0-40.0); MEAN CELL VOLUME 95.9 fl (81.0-99.0); MEAN CORPUSCULAR HEMOGLOBIN 31.8 pg (27.0-31.0); MEAN CORPUSCULAR HGB CONC 33.2 g/dL (33.0-37.0); MEAN PLATELET VOLUME 7.3 fl (7.2-11.7); MONO # 0.5 K/uL (0.0-0.8); MONO % 6.6 % (0.0-10.0); NEUT # 5.4 K/uL (1.8-7.0); NRBC % 0.1 % (0.0-0.0); RBC 4.31 Mil/uL (3.80-5.20); RED CELL DISTRIBUTION WIDTH 13.9 % (11.5-14.5); WHITE BLOOD COUNT 8.1 K/uL (4.8-10.8)
[2018-07-21] MEDS ORDERED: Sodium Chloride 0.9% 1,000 ML IV STA (14:16)
--- NOTE | 2018-07-21 14:23 | ED PDOC ---
HPI: Back Time Seen by Provider: 07/21/18 13:29 Chief Complaint (Nursing): Back Pain Chief Complaint (Provider): back pain History Per: Patient History/Exam Limitations: no limitations Additional Complaint(s): 58 y/o F with hx of HTN, HIV (on HAART therapy), fibromyalgia and kidney stones who presents with B/L back pain x 1 week and nausea x 1 day. Denies vomiting, diarrhea, fever, chills. + burning on urination and some urinary frequency. Has Take Tylenol during the week but has not taken anything for pain today. Past Medical History Reviewed: Historical Data, Nursing Documentation, Vital Signs Vital Signs: Last Vital Signs Temp 98.2 F 07/21/18 12:54 Pulse 98 H 07/21/18 12:54 Resp 18 07/21/18 12:54 BP 161/92 H 07/21/18 12:54 Pulse Ox 99 07/21/18 12:54 Primary Care Provider: Tyrese Howard - Medical History PMH: Anxiety, Arthritis, Back Problems, Depression, Fibromyalgia, GERD, HIV, HTN (not taking med), Hypercholesterolemia, Hyperthyroidism, Kidney Stones, Migraine, Chronic Kidney Disease, Rheumatoid Arthritis, Chronic Pain (cervical, lumbar) Denies: Asthma, COPD, Hypothyroidism - Surgical History Surgical History: (2) - Family History Family History: States: [place] (Father had a heart attack @ 60yo), Hypertension - Immunization History Hx Tetanus Toxoid Vaccination: Yes (current) Hx Influenza Vaccination: Yes (12/2013) Hx Pneumococcal Vaccination: No - Home Medications Home Medications: Ambulatory Orders Medication Instructions Recorded Allopurinol [Zyloprim] 100 mg PO DAILY 06/26/16 Amitriptyline [Elavil] 50 mg PO HS 06/26/16 Gabapentin [Neurontin] 1,200 mg PO BID 06/26/16 Levothyroxine [Synthroid] 50 mcg PO DAILY 06/26/16 Omeprazole 20 mg PO DAILY 06/26/16 Venlafaxine [Effexor XR] 225 mg PO DAILY 06/26/16 Furosemide [Lasix] 20 mg PO DAILY 07/17/16 Multivitamin [Multi-Vitamin Daily] 1 tab PO DAILY 07/17/16 Oxycodone HCl/Acetaminophen 1 tab PO TID PRN 07/17/16 [Percocet 10-325 mg Tablet] Potassium Citrate [Urocit-K] 15 meq PO BID 07/17/16 Folic Acid 400 mcg PO DAILY 07/30/16 LORazepam [Ativan] 0.5 mg PO BID 07/30/16 Bictegrav/Emtricit/Tenofov Ala 1 each PO DAILY 01/09/18 [Biktarvy 50-200-25 mg Tablet] Enalapril Maleate [Vasotec] 5 mg PO DAILY 01/09/18 Loratadine [Claritin] 10 mg PO DAILY 01/09/18 Ondansetron [Zofran] 4 mg PO DAILY PRN 01/09/18 Lidocaine 5% [Lidoderm] 1 patch TOP DAILY PRN #7 patch 05/21/18 Ibuprofen [Motrin Tab] 800 mg PO Q6 PRN 7 Days tab 07/21/18 - Allergies Allergies/Adverse Reactions: Allergies Allergy/AdvReac Type Severity Reaction Status Date / Time Sulfa (Sulfonamide AdvReac Mild COUGH Verified 07/06/18 19:38 Antibiotics) Review of Systems Constitutional: Negative for: Fever, Chills Gastrointestinal: Positive for: Nausea. Negative for: Vomiting, Abdominal Pain, Diarrhea Genitourinary Female: Positive for: Dysuria, Frequency Musculoskeletal: Positive for: Back Pain Physical Exam - Reviewed Nursing Documentation Reviewed: Yes Vital Signs Reviewed: Yes - Physical Exam Appears: Positive for: Uncomfortable Gastrointestinal/Abdominal: Positive for: Normal Exam, Soft. Negative for: Tenderness Back: Positive for: Normal Inspection, L CVA Tenderness, R CVA Tenderness. Negative for: Vertebral Tenderness Neurological/Psych: Positive for: Awake, Alert, Oriented - Laboratory Results Result Diagrams: 07/21/18 13:42 07/21/18 13:42 - ECG O2 Sat by Pulse Oximetry: 99 Medical Decision Making Medical Decision Making: CBC, CMP U/A Toradol 30mg IV x 1 NS 1L IV x 1 CT abd/pelvis w/o contrast U/A: LE and nitrate negative, WBCs < 1K Abd/pelvix CT w/o contrast: FINDINGS: LOWER THORAX: Unremarkable. LIVER: Unremarkable. No gross lesion or ductal dilatation. GALLBLADDER AND BILE DUCTS: Unremarkable. PANCREAS: Markedly atrophic. No gross lesion or ductal dilatation. SPLEEN: Unremarkable. ADRENALS: Unremarkable. No mass. KIDNEYS AND URETERS: Nephrolithiasis- bilateral unchanged compared to the prior study. Previously identified right ureteral calculus no longer seen No hydronephrosis. No solid mass. VASCULATURE: Atherosclerotic calcification and mural plaque present. Findings are seen throughout the aorta BOWEL: Constipation without fecal impaction or obstruction. APPENDIX: A normal appendix is visualized in it's entirety. PERITONEUM: Unremarkable. No free fluid. No free air. LYMPH NODES: Unremarkable. No enlarged lymph nodes. BLADDER: Unremarkable. REPRODUCTIVE: Unremarkable. BONES: No acute fracture. OTHER FINDINGS: None. IMPRESSION: Stable nephrolithiasis. No evidence of hydronephrosis, ureteral or bladder calculi. 17:23: case discussed with Dr. Cannon who states that stones were not amenable to treatment so, since they are unchanged on CT, patient can follow up with him in 2 weeks and treat with pain meds and hydration. Patient made aware and in agreement with plan. Disposition - Clinical Impression Clinical Impression: Renal colic, bilateral - Patient ED Disposition Is Patient to be Admitted: No Discussed With Dr.: Kevin Cannon Jr. Doctor Will See Patient In The: Office Counseled Patient/Family Regarding: Studies Performed, Diagnosis, Need For Followup, Rx Given - Disposition Referrals: Kevin Cannon Jr., MD [Staff Provider] - Disposition: Routine/Home Disposition Time: 17:21 Condition: IMPROVED Additional Instructions: Follow up with Dr. Cannon for re-evaluation of kidney stones in 2 weeks. Drink lots of fluids and take Ibuprofen for pain, take your home Percocet for more s evere pain. Return to ER if your symptoms worsen and you are unable to control pain with above measures. Prescriptions: Ibuprofen [Motrin Tab] 800 mg PO Q6 PRN 7 Days tab PRN Reason: Pain, Moderate (4-7) Instructions: Renal Colic (DC) Forms: [employer] (Irish) Print Language: LAO
[2018-07-21 14:27] LABS: SQUAMOUS EPITHIAL < 1 /hpf (0-5); URINE BILIRUBIN NEGATIVE (NEGATIVE); URINE BLOOD NEGATIVE (NEGATIVE); URINE GLUCOSE (UA) NEG (NEGATIVE); URINE LEUKOCYTE ESTERASE NEG Leu/uL (Negative); URINE PROTEIN 100 mg/dL (NEGATIVE); URINE UROBILINOGEN 0.2-1.0 mg/dL (0.2-1.0)
[2018-07-21 14:29] LABS: URINE CLARITY CLEAR (Clear); URINE COLOR YELLOW (YELLOW)
[2018-07-21 14:33] LABS: ALB/GLOB RATIO 1.1 (1.0-2.1); ALBUMIN 4.5 g/dL (3.5-5.0); CALCIUM 10.1 mg/dL (8.4-10.2)
--- NOTE | 2018-07-21 15:53 | CT ---
Date of service: 07/21/2018 PROCEDURE: CT Abdomen and Pelvis without intravenous contrast HISTORY: evaluate nephrolithiasis COMPARISON: None. TECHNIQUE: Unenhanced. Neither IV nor oral contrast administered Radiation dose: Total exam DLP = inf_radiation_dlp mGy-cm. This CT exam was performed using one or more of the following dose reduction techniques: Automated exposure control, adjustment of the mA and/or kV according to patient size, and/or use of iterative reconstruction technique. FINDINGS: LOWER THORAX: Unremarkable. LIVER: Unremarkable. No gross lesion or ductal dilatation. GALLBLADDER AND BILE DUCTS: Unremarkable. PANCREAS: Markedly atrophic. No gross lesion or ductal dilatation. SPLEEN: Unremarkable. ADRENALS: Unremarkable. No mass. KIDNEYS AND URETERS: Nephrolithiasis- bilateral unchanged compared to the prior study. Previously identified right ureteral calculus no longer seen No hydronephrosis. No solid mass. VASCULATURE: Atherosclerotic calcification and mural plaque present. Findings are seen throughout the aorta BOWEL: Constipation without fecal impaction or obstruction. APPENDIX: A normal appendix is visualized in it's entirety. PERITONEUM: Unremarkable. No free fluid. No free air. LYMPH NODES: Unremarkable. No enlarged lymph nodes. BLADDER: Unremarkable. REPRODUCTIVE: Unremarkable. BONES: No acute fracture. OTHER FINDINGS: None. IMPRESSION: Stable nephrolithiasis. No evidence of hydronephrosis, ureteral or bladder calculi.
[2018-07-21 17:13] VITALS: BP 149/80; PULSE 82; RESP 16; TEMP 99.5
[2018-07-21 17:22] VITALS: O2SAT 99
== END 2018-07-21 17:44 | disposition home or self-care (01) ==
LOC: H.ER 12:21
DX: N23 Unspecified renal colic (principal); Z87.442 Personal history of urinary calculi; I12.9 Hypertensive chronic kidney disease with stage 1 through stage 4 chronic kidney disease, or unspecified chronic kidney disease; Z86.59 Personal history of other mental and behavioral disorders; M79.7 Fibromyalgia; Z79.899 Other long term (current) drug therapy; Z88.2 Allergy status to sulfonamides
CPT/HCPCS: 74176; 80053; 81003; 85025; 87086; 96361; 96374; 99282; J1885; J7030